=== PATIENT | female | born 1935 | race African-American/Black ===

== ENCOUNTER → 2016-10-02 | Outpatient (CLI) | payer MEDICARE, MEDICAID | LOC: OD 16:44 | PROVIDERS: ATTEND Nurse Practitioner Family | DX: Z13.83 Encounter for screening for respiratory disorder NEC (principal) | CPT/HCPCS: 71020 ==

== ENCOUNTER 2017-01-24 12:23 | Emergency (ER) | payer MEDICARE, MEDICAID ==
--- NOTE | 2017-01-24 12:36 | ER Document Report ---
ED General - General Stated Complaint: DIFFICULTY BREATHING Time Seen by Provider: 01/24/17 12:26 Mode of Arrival: Medic Information source: Patient, Parent Notes: 81-year-old female history of dialysis presents in respiratory distress by EMS. Patient noted she was having difficulty breathing over the past few days. Patient last had dialysis on Wednesday denies any fevers or chills admits to intermittent cough with clear sputum EMS noted patient to be satting 50% on room air, she was started on nonrebreather and was 100%, patient noted to be quite hypertensive given nitroglycerin TRAVEL OUTSIDE OF THE [place] IN LAST 30 DAYS: No - HPI Onset: Other Onset/Duration: Persistent Quality of pain: No pain Severity: Severe Pain Level: Denies Associated symptoms: Productive cough, Shortness of breath Exacerbated by: Supine Relieved by: Denies Similar symptoms previously: Yes Recently seen / treated by doctor: Yes - Related Data Allergies/Adverse Reactions: No Known Allergies Allergy (Unverified 06/30/13 16:51) Past Medical History - Social History Smoking Status: Never Smoker Cigarette use (# per day): No Chew tobacco use (# tins/day): No Smoking Education Provided: No Family History: Reviewed & Not Pertinent - Past Medical History Cardiac Medical History: Reports: Hx Hypertension Pulmonary Medical History: Denies: Hx Tuberculosis Renal/ Medical History: Reports: Hx End Stage Renal Disease - On hemodialysis MWF Psychiatric Medical History: Denies: Hx Depression Past Surgical History: Reports: Hx Orthopedic Surgery - Hip replacement - Immunizations Immunizations up to date: Yes Hx Diphtheria, Pertussis, Tetanus Vaccination: Yes Hx Pneumococcal Vaccination: 07/07/13 Review of Systems - Review of Systems Notes: REVIEW OF SYSTEMS: CONSTITUTIONAL : Denies fever, chills, or sweats. Denies recent illness. EENT: Denies eye, ear, throat, or mouth pain or symptoms. Denies nasal or sinus congestion or discharge. Denies throat, tongue, or mouth swelling or difficulty swallowing. CARDIOVASCULAR: Denies chest pain. Denies palpitations or racing or irregular heart beat. Denies ankle edema. RESPIRATORY: Admits to shortness of GASTROINTESTINAL: Denies abdominal pain or distention. Denies nausea, vomiting , or diarrhea. Denies blood in vomitus, stools, or per rectum. Denies black, tarry stools. Denies constipation. GENITOURINARY: Denies difficulty urinating, painful urination, burning, frequency, blood in urine, or discharge. FEMALE GENITOURINARY: Denies vaginal bleeding, heavy or abnormal periods, irregular periods. Denies vaginal discharge or odor. MUSCULOSKELETAL: Denies back or neck pain or stiffness. Denies joint pain or swelling. SKIN: Denies rash, lesions or sores. HEMATOLOGIC : Denies easy bruising or bleeding. LYMPHATIC: Denies swollen, enlarged glands. NEUROLOGICAL: Denies confusion or altered mental status. Denies passing out or loss of consciousness. Denies dizziness or lightheadedness. Denies headache. Denies weakness or paralysis or loss of use of either side. Denies problems with gait or speech. Denies sensory loss, numbness, or tingling. Denies seizures. PSYCHIATRIC: Denies anxiety or stress. Denies depression, suicidal ideation, or homicidal ideation. ALL OTHER SYSTEMS REVIEWED AND NEGATIVE. PHYSICAL EXAMINATION: GENERAL: Overall well-appearing but immediately placed on BiPAP HEAD: Atraumatic, normocephalic. EYES: Pupils equal round and reactive to light, extraocular movements intact, conjunctiva are normal. ENT: Nares patent, oropharynx clear without exudates. Moist mucous membranes. NECK: Normal range of motion, supple without lymphadenopathy LUNGS: Coarse rhonchi at the bases HEART: Regular rate and rhythm without murmurs ABDOMEN: Soft, nontender, nondistended abdomen. No guarding, no rebound. No masses appreciated. Female : deferred Musculoskeletal: Normal range of motion, no pitting or edema. No cyanosis. NEUROLOGICAL: Cranial nerves grossly intact. Normal speech, normal gait. Normal sensory, motor exams PSYCH: Normal mood, normal affect. SKIN: Warm, Dry, normal turgor, no rashes or lesions noted. Dictation was performed using [employer] voice recognition software Physical Exam - Vital signs Vitals: Pulse Ox 94 01/24/17 12:25 Course - Re-evaluation Re-evalutation: 01/24/17 13:09 Patient does not appear edematous, she was given 1 DuoNeb by EMS and was kept on nonrebreather and was satting 100%. Patient's blood pressure was noted to be 250s over 120s by EMS 01/24/17 13:45 Patient is noted to have congestive heart failure, I spoke with hospitalist who defers on admission, they requested transfer patient [facility] paged 01/24/17 14:11 Spoke with [facility] , Dr Gaffney , he accepts patient for transfer, she is stable at this time for transfer 01/24/17 14:18 - Vital Signs Vital signs: Temp Pulse Resp BP Pulse Ox 97.7 F 94 18 158/82 H 92 01/24/17 12:35 01/24/17 12:35 01/24/17 12:36 01/24/17 12:36 01/24/17 12:36 - Laboratory Result Diagrams: 01/24/17 12:25 01/24/17 12:25 Laboratory results interpreted by me: 01/24/17 01/24/17 01/24/17 12:25 12:25 12:25 WBC 11.8 H RBC 3.61 L Hgb 10.6 L Hct 33.0 L RDW 16.2 H Seg Neuts % (Manual) 91 H Band Neutrophils % 1 L Lymphocytes % (Manual) 4 L Abs Neuts (Manual) 10.9 H VBG pH VBG pCO2 BUN 36 H Creatinine 5.43 H Est GFR ( Amer) 9 L Est GFR (Non-Af Amer) 8 L Glucose 267 H Calcium 10.5 H Direct Bilirubin 0.6 H NT-Pro-B Natriuret Pep 45241 H 01/24/17 12:25 WBC RBC Hgb Hct RDW Seg Neuts % (Manual) Band Neutrophils % Lymphocytes % (Manual) Abs Neuts (Manual) VBG pH 7.27 L VBG pCO2 63.2 H BUN Creatinine Est GFR ( Amer) Est GFR (Non-Af Amer) Glucose Calcium Direct Bilirubin NT-Pro-B Natriuret Pep - Diagnostic Test Radiology reviewed: Image reviewed, Reports reviewed - diffuse edema - EKG Interpretation by Me EKG shows normal: Sinus rhythm, Force, Intervals, QRS Complexes Voltage: Consistant with LVH Critical Care Note - Critical Care Note Total time excluding time spent on procedures (mins): 33 Comments: 33 minutes of critical care time spent in direct contact evaluating and reevaluating the patient, treating symptoms, reviewing labs and studies and speaking with family and consultants excluding any procedures Discharge - Discharge Clinical Impression: Hypertensive emergency, Hypoxemia Congestive heart failure Qualifiers: Congestive heart failure type: systolic Congestive heart failure chronicity: unspecified congestive heart failure chronicity Qualified Code(s): I50.20 - Unspecified systolic (congestive) heart failure Condition: Fair Disposition: [facility] Referrals: AUDELIA CORONEL MD [Primary Care Provider] - Follow up as needed
[2017-01-24 12:44] LABS: HEMOGLOBIN 10.6 g/dL (12.0-15.5); HGB HCT DIFFERENCE -1.2; MEAN CORPUSCULAR HEMOGLOBIN 29.2 pg (27.0-33.4); MEAN CORPUSCULAR VOLUME 92 fl (80-97); RED BLOOD COUNT 3.61 10^6/uL (3.72-5.28); RED CELL DISTRIBUTION WIDTH 16.2 % (11.5-14.0); VENOUS BLOOD BASE EXCESS 0.3 mmol/L; VENOUS BLOOD HCO3 28.4 mmol/L (20-32); VENOUS BLOOD PCO2 63.2 mmHg (35-63); VENOUS BLOOD PH 7.27 (7.30-7.42); WHITE BLOOD COUNT 11.8 10^3/uL (4.0-10.5)
[2017-01-24 13:00] LABS: BAND NEUTROPHILS % (MANUAL) 1 % (3-5); BASOPHILS % (MANUAL) 0 % (0-2); EOSINOPHILS % (MANUAL) 0 % (0-6); LYMPHOCYTES % (MANUAL) 4 % (13-45); TOTAL CELLS COUNTED 100
[2017-01-24 13:01] LABS: ANISOCYTOSIS 1+; POIKILOCYTOSIS SLIGHT; POLYCHROMASIA SLIGHT
[2017-01-24 13:02] LABS: ALANINE AMINOTRANSFERASE 27 U/L (9-52); ALBUMIN 4.1 g/dL (3.5-5.0); ALKALINE PHOSPHATASE 98 U/L (38-126); ANION GAP 13 (5-19); ASPARTATE AMINO TRANSFERASE 34 U/L (14-36); BILIRUBIN,DIRECT 0.6 mg/dL (0.0-0.4); BILIRUBIN,TOTAL 0.8 mg/dL (0.2-1.3); BLOOD UREA NITROGEN 36 mg/dL (7-20); CALCIUM 10.5 mg/dL (8.4-10.2); CARBON DIOXIDE 27 mmol/L (22-30); CHLORIDE 99 mmol/L (98-107); CREATINE KINASE 35 U/L (30-135); CREATININE RESULT 5.43 mg/dL (0.52-1.25); GLUCOSE 267 mg/dL (75-110); HELMET CELLS SLIGHT; OVALOCYTES SLIGHT; POTASSIUM 4.7 mmol/L (3.6-5.0); SODIUM 139.4 mmol/L (137-145); TEAR DROP CELLS SLIGHT; TOTAL PROTEIN 7.6 g/dL (6.3-8.2)
[2017-01-24 13:14] LABS: CREATINE KINASE MB 1.52 ng/mL (<4.55)
[2017-01-24 13:16] LABS: TROPONIN I 0.111 ng/mL
--- NOTE | 2017-01-24 13:20 | RADIOLOGY REPORT (SQ) ---
EXAM DESCRIPTION: CHEST SINGLE VIEW COMPLETED DATE/TIME: 01/24/2017 1:02 pm REASON FOR STUDY: chf,, resp distress COMPARISON: 10/02/2016 NUMBER OF VIEWS: One view. TECHNIQUE: Single frontal radiographic view of the chest acquired. LIMITATIONS: None. FINDINGS: LUNGS AND PLEURA: Segmental airspace disease in the lower lobes. Diffuse interstitial pat tern. MEDIASTINUM AND HILAR STRUCTURES: No masses. Contour normal. HEART AND VASCULAR STRUCTURES: Cardiomegaly. Vascular congestion. BONES: No acute findings. HARDWARE: None in the chest. OTHER: Vascular stent overlying left axilla. IMPRESSION: Congestive heart failure. TECHNICAL DOCUMENTATION: JOB ID: [id number] [employer]- All Rights Reserved
[2017-01-24 17:22] VITALS: BP 190/87
--- NOTE | 2017-01-25 03:38 | EKG REPORT ---
SEVERITY:- ABNORMAL ECG - SINUS RHYTHM LVH WITH SECONDARY REPOLARIZATION ABNORMALITY BORDERLINE PROLONGED QT INTERVAL : Confirmed by: Liberty Urbano MD 25-Jan-2017 03:36:44
== END 2017-01-24 17:31 | disposition short-term general hospital (02) ==
LOC: ER 12:23
DX: I16.1 Hypertensive emergency (principal); I13.2 Hypertensive heart and chronic kidney disease with heart failure and with stage 5 chronic kidney disease, or end stage renal disease; I50.20 Unspecified systolic (congestive) heart failure; N18.6 End stage renal disease; Z99.2 Dependence on renal dialysis; R09.02 Hypoxemia; R05 Cough; R06.02 Shortness of breath
CPT/HCPCS: 36415; 71010; 80053; 82550; 82553; 82803; 83880; 84484; 85025; 87040; 93005; 93010; 94660; 99291

== ENCOUNTER 2017-03-19 11:15 | Observation (INO) | payer MEDICARE, MEDICAID ==
[2017-03-19 13:27] LABS: ALANINE AMINOTRANSFERASE 47 U/L (9-52); ALBUMIN 4.2 g/dL (3.5-5.0); ALKALINE PHOSPHATASE 124 U/L (38-126); ANION GAP 16 (5-19); ASPARTATE AMINO TRANSFERASE 38 U/L (14-36); BILIRUBIN,DIRECT 0.5 mg/dL (0.0-0.4); BILIRUBIN,TOTAL 0.5 mg/dL (0.2-1.3); BLOOD UREA NITROGEN 39 mg/dL (7-20); CALCIUM 10.3 mg/dL (8.4-10.2); CARBON DIOXIDE 27 mmol/L (22-30); CHLORIDE 93 mmol/L (98-107); CREATINE KINASE 27 U/L (30-135); CREATININE RESULT 5.06 mg/dL (0.52-1.25); GLUCOSE 163 mg/dL (75-110); POTASSIUM 4.6 mmol/L (3.6-5.0); SODIUM 135.6 mmol/L (137-145); TOTAL PROTEIN 7.2 g/dL (6.3-8.2)
[2017-03-19 13:40] LABS: CREATINE KINASE MB 0.73 ng/mL (<4.55); TROPONIN I 0.023 ng/mL
--- NOTE | 2017-03-19 13:43 | RADIOLOGY REPORT (SQ) ---
EXAM DESCRIPTION: CHEST SINGLE VIEW COMPLETED DATE/TIME: 03/19/2017 12:59 pm REASON FOR STUDY: dyspnea COMPARISON: 01/24/2017, 10/02/2016 EXAM PARAMETERS: NUMBER OF VIEWS: One view. TECHNIQUE: Single frontal radiographic view of the chest acquired. RADIATION DOSE: NA LIMITATIONS: None. FINDINGS: LUNGS AND PLEURA: Bilateral perihilar pulmonary edema with small bilateral pleural effusio ns. No pneumothorax MEDIASTINUM AND HILAR STRUCTURES: No masses. Contour normal. HEART AND VASCULAR STRUCTURES: Stable moderate cardiomegaly BONES: No acute findings. HARDWARE: None in the chest. OTHER: No other significant finding. IMPRESSION: Fluid overload or congestive failure Stable moderate cardiomegaly TECHNICAL DOCUMENTATION: JOB ID: [id number]
--- NOTE | 2017-03-19 13:46 | ER Document Report ---
ED General - General Chief Complaint: Shortness Of Breath Stated Complaint: DIFFICULTY BREATHING Time Seen by Provider: 03/19/17 11:18 Mode of Arrival: Medic Information source: Patient, Relative Notes: 81-year-old female who receives dialysis Wednesdays presents with complaints of shortness of breath. Patient was found hypoxic in respiratory distress, was given sublingual nitros as well as nitro paste by EMS. Patient last received dialysis on Wednesday is supposed to have dialysis today Dr. Higgins is already aware of this patient TRAVEL OUTSIDE OF THE [place] IN LAST 30 DAYS: No - HPI Onset: Just prior to arrival Onset/Duration: Sudden Quality of pain: No pain Severity: Moderate Pain Level: Denies Associated symptoms: Shortness of breath Exacerbated by: Denies Relieved by: Denies Similar symptoms previously: Yes Recently seen / treated by doctor: Yes - Related Data Allergies/Adverse Reactions: No Known Allergies Allergy (Unverified 06/30/13 16:51) Home Medications: Current Home Medications Acetaminophen [Tylenol Extra Strength 500 mg Tablet] 1 tab PO QIDP PRN 03/19/17 [History] Amlodipine Besylate [Norvasc 5 mg Tablet] 5 mg PO Q12 03/19/17 [History] Atorvastatin Calcium [Lipitor 20 mg Tablet] 20 mg PO QHS 03/19/17 [History] Calcium Acetate [Phoslo 667 mg Capsule] 1,334 mg PO MEALS 03/19/17 [History] Carvedilol [Coreg 3.125 mg Tablet] 3.125 mg PO Q12 03/19/17 [History] Cinacalcet HCl [Sensipar 30 Mg Tablet] 30 mg PO DAILY 03/19/17 [History] Ergocalciferol (Vitamin D2) [Drisdol 50,000 Unit (1.25MG) Capsule] 1 cap PO TH@ 1000 03/19/17 [History] Folic Acid/Vit B Complex and C [Nephro-Prosper Tablet] 0.8 mg PO DAILY 03/19/17 [ History] Furosemide [Lasix 80 mg Tablet] 80 mg PO Q12 03/19/17 [History] Insulin Lispro [Humalog Insulin 100 Unit/1 ml 3 ml Vial] 0 unit SUBCUT .SLD SCALE 03/19/17 [History] Lactulose [Cephulac 20 gm/30 ml Syrup UD Cup] 20 gm PO DAILYP PRN 03/19/17 [ History] Lidocaine/Prilocaine [Emla Cream] 1 applic TP MOWEFR@1000 03/19/17 [History] Linagliptin [Tradjenta] 5 mg PO DAILY 03/19/17 [History] Losartan Potassium [Cozaar 100 mg Tablet] 100 mg PO QHS 03/19/17 [History] Methyl Salicylate/Menthol [Muscle Rub Cream] 1 applic TP QIDP PRN 03/19/17 [ History] Polyethylene Glycol 3350 [Miralax Powder 17 gm/Packet] 1 packet PO DAILY [History] Polyethylene Glycol 3350 [Miralax Powder 17 gm/Packet] 1 packet PO DAILY [History] Sennosides/Docusate 8.6-50 mg [Senna Plus Tablet] 2 tab PO DAILYP PRN 03/19/17 [ History] Simethicone [Gas-X] 125 mg PO QIDP PRN 03/19/17 [History] Sodium Polystyrene Sulfonate [Kayexalate 15 Gm/60 Ml Susp 60 Ml] 15 gm PO ASDIR PRN 03/19/17 [History] Thiamine HCl [Thiamine 100 mg Tablet] 100 mg PO DAILY 03/19/17 [History] Past Medical History - Social History Smoking Status: Never Smoker Cigarette use (# per day): No Chew tobacco use (# tins/day): No Smoking Education Provided: No Frequency of alcohol use: None Drug Abuse: None Family History: Reviewed & Not Pertinent Patient has suicidal ideation: No Patient has homicidal ideation: No - Past Medical History Cardiac Medical History: Reports: Hx Hypercholesterolemia, Hx Hypertension Pulmonary Medical History: Denies: Hx Tuberculosis Endocrine Medical History: Reports: Hx Diabetes Mellitus Type 2 Renal/ Medical History: Reports: Hx End Stage Renal Disease - On hemodialysis MWF. Denies: Hx Peritoneal Dialysis Psychiatric Medical History: Denies: Hx Depression Past Surgical History: Reports: Hx Orthopedic Surgery - Hip replacement - Immunizations Immunizations up to date: Yes Hx Diphtheria, Pertussis, Tetanus Vaccination: Yes Hx Pneumococcal Vaccination: 07/07/13 Review of Systems - Review of Systems Notes: REVIEW OF SYSTEMS: CONSTITUTIONAL : Denies fever, chills, or sweats. Denies recent illness. EENT: Denies eye, ear, throat, or mouth pain or symptoms. Denies nasal or sinus congestion or discharge. Denies throat, tongue, or mouth swelling or difficulty swallowing. CARDIOVASCULAR: Denies chest pain. Denies palpitations or racing or irregular heart beat. Denies ankle edema. RESPIRATORY: Admits to shortness of breath difficulty breathing GASTROINTESTINAL: Denies abdominal pain or distention. Denies nausea, vomiting , or diarrhea. Denies blood in vomitus, stools, or per rectum. Denies black, tarry stools. Denies constipation. GENITOURINARY: Denies difficulty urinating, painful urination, burning, frequency, blood in urine, or discharge. FEMALE GENITOURINARY: Denies vaginal bleeding, heavy or abnormal periods, irregular periods. Denies vaginal discharge or odor. MUSCULOSKELETAL: Denies back or neck pain or stiffness. Denies joint pain or swelling. SKIN: Denies rash, lesions or sores. HEMATOLOGIC : Denies easy bruising or bleeding. LYMPHATIC: Denies swollen, enlarged glands. NEUROLOGICAL: Denies confusion or altered mental status. Denies passing out or loss of consciousness. Denies dizziness or lightheadedness. Denies headache. Denies weakness or paralysis or loss of use of either side. Denies problems with gait or speech. Denies sensory loss, numbness, or tingling. Denies seizures. PSYCHIATRIC: Denies anxiety or stress. Denies depression, suicidal ideation, or homicidal ideation. ALL OTHER SYSTEMS REVIEWED AND NEGATIVE. PHYSICAL EXAMINATION: GENERAL: Well-appearing, well-nourished and in no acute distress. HEAD: Atraumatic, normocephalic. EYES: Pupils equal round and reactive to light, extraocular movements intact, conjunctiva are normal. ENT: Nares patent, oropharynx clear without exudates. Moist mucous membranes. NECK: Normal range of motion, supple without lymphadenopathy LUNGS: Coarse breath sounds HEART: Regular rate and rhythm without murmurs ABDOMEN: Soft, nontender, nondistended abdomen. No guarding, no rebound. No masses appreciated. Female : deferred Musculoskeletal: Normal range of motion, no pitting or edema. No cyanosis. NEUROLOGICAL: Cranial nerves grossly intact. Normal speech, normal gait. Normal sensory, motor exams PSYCH: Normal mood, normal affect. SKIN: Warm, Dry, normal turgor, no rashes or lesions noted. Dictation was performed using [employer] recognition software Physical Exam - Vital signs Vitals: Resp Pulse Ox 14 98 03/19/17 11:57 03/19/17 11:57 Course - Re-evaluation Re-evalutation: 03/19/17 13:46 dr balbir perales 03/19/17 18:17 Patient noted to be in acute CHF exacerbation, dialysis was requested. Patient otherwise looks well no distress patient will be admitted to the hospital service for hypoxemia - Vital Signs Vital signs: Temp Pulse Resp BP Pulse Ox 97.7 F 78 20 154/95 H 99 03/19/17 12:03 03/19/17 12:03 03/19/17 12:16 03/19/17 12:03 03/19/17 12:03 - Laboratory Result Diagrams: 03/19/17 13:56 03/19/17 12:35 Laboratory results interpreted by me: 03/19/17 03/19/17 03/19/17 12:35 12:35 13:56 RDW 16.4 H Seg Neutrophils % 87.0 H Lymphocytes % 6.1 L Sodium 135.6 L Chloride 93 L BUN 39 H Creatinine 5.06 H Est GFR ( Amer) 10 L Est GFR (Non-Af Amer) 8 L Glucose 163 H Calcium 10.3 H Direct Bilirubin 0.5 H AST 38 H Creatine Kinase 27 L NT-Pro-B Natriuret Pep 59651 H - Diagnostic Test Radiology reviewed: Image reviewed, Reports reviewed Critical Care Note - Critical Care Note Total time excluding time spent on procedures (mins): 37 Comments: 37 minutes of critical care time spent in direct contact evaluating and reevaluating the patient, treating symptoms, reviewing labs and studies and speaking with family and consultants excluding any procedures Discharge - Discharge Clinical Impression: Hypoxemia CHF (congestive heart failure) Qualifiers: Congestive heart failure type: combined Congestive heart failure chronicity: acute on chronic Qualified Code(s): I50.43 - Acute on chronic combined systolic (congestive) and diastolic (congestive) heart failure Condition: Fair Disposition: ADMITTED OBSERVATION Admitting Provider: Hospitalist Unit Admitted: [facility]
[2017-03-19 14:23] LABS: ABSOLUTE BASOPHILS # (AUTO) 0.1 10^3/uL (0.0-0.2); ABSOLUTE EOSINOPHILS # (AUTO) 0.1 10^3/uL (0.0-0.6); ABSOLUTE LYMPHOCYTES (AUTO) 0.5 10^3/uL (0.5-4.7); ABSOLUTE MONOCYTES (AUTO) 0.4 10^3/uL (0.1-1.4); BASOPHILS % (AUTO) 0.7 % (0-2); HEMATOCRIT 36.3 % (36.0-47.0); HEMOGLOBIN 12.1 g/dL (12.0-15.5); LYMPHOCYTES % (AUTO) 6.1 % (13-45); MEAN CORPUSCULAR HEMOGLOBIN 28.2 pg (27.0-33.4); MEAN CORPUSCULAR HGB CONC 33.2 g/dL (32.0-36.0); MEAN CORPUSCULAR VOLUME 85 fl (80-97); MONOCYTES % (AUTO) 5.2 % (3-13); RED BLOOD COUNT 4.28 10^6/uL (3.72-5.28); RED CELL DISTRIBUTION WIDTH 16.4 % (11.5-14.0)
[2017-03-19] MEDS ORDERED: LEVALBUTEROL HCL NEB 1.25 MG/3 ML AMPUL NEB PRN (15:49)
[2017-03-19] MEDS ORDERED: ONDANSETRON HCL INJ/PF 4 MG/2 ML SDV IV PRN (15:56)
[2017-03-19] MEDS ORDERED: ACETAMINOPHEN 325 MG TABLET PO PRN (15:56)
[2017-03-19] MEDS ORDERED: LACTULOSE SYRUP 20 GM/30 ML UDCUP PO PRN (16:01)
--- NOTE | 2017-03-19 16:27 | PDOC H&P ---
History of Present Illness Admission Date/PCP: 03/19/17 14:14 AUDELIA CORONEL MD Patient complains of: Shortness of breath History of Present Illness: KEVIN BUSTAMANTE is a 81 year old female, with end-stage renal disease on hemodialysis, hypertension, hyperlipidemia, presents to the hospital because of shortness of breath on exertion. No noted increasing edema. Patient has been nonambulatory since he had a hip replacement several months ago. He was hospitalized recently at [facility] for fluid overload requiring dialysis. She was discharged to subacute facility for rehabilitation and was recently discharged home from the facility 2-3 days ago. Patient was having dialysis but according to the family they were not recording the appropriate way to the patient. Patient started having shortness of breath earlier today and called her physician and digital marketing manager and was advised to come to the emergency room. Chest x-ray revealed congestive heart failure pattern and therefore the patient was scheduled for dialysis and referred to the hospitalist for admission. Patient denies any fever, chest pain, PND orthopnea , paroxysmal coughing, purulent expectoration, sinus congestion, or sore throat. Past Medical History Cardiac Medical History: Reports: Congestive Heart Failure, Hyperlipidema, Hypertension Pulmonary Medical History: Denies: Tuberculosis Endocrine Medical History: Reports: Diabetes Mellitus Type 2 Renal/ Medical History: Reports: End Stage Renal Disease - On hemodialysis MW Psychiatric Medical History: Denies: Depression Past Surgical History Past Surgical History: Reports: Orthopedic Surgery - Hip replacement Social History Information Source: Patient Smoking Status: Never Smoker Frequency of Alcohol Use: None Hx Recreational Drug Use: No Drugs: None Hx Prescription Drug Abuse: No Family History Family History: DM, Hypertension Parental Family History Reviewed: Yes Children Family History Reviewed: Yes Sibling(s) Family History Reviewed.: Yes Medication/Allergy Home Medications: Acetaminophen [Tylenol Extra Strength 500 mg Tablet] 1 tab PO QIDP PRN 03/19/17 Amlodipine Besylate [Norvasc 5 mg Tablet] 5 mg PO Q12 03/19/17 Atorvastatin Calcium [Lipitor 20 mg Tablet] 20 mg PO QHS 03/19/17 Calcium Acetate [Phoslo 667 mg Capsule] 1,334 mg PO MEALS 03/19/17 Carvedilol [Coreg 3.125 mg Tablet] 3.125 mg PO Q12 03/19/17 Cinacalcet HCl [Sensipar 30 Mg Tablet] 30 mg PO DAILY 03/19/17 Ergocalciferol (Vitamin D2) [Drisdol 50,000 Unit (1.25MG) Capsule] 1 cap PO TH@ 1000 03/19/17 Folic Acid/Vit B Complex and C [Nephro-Prosper Tablet] 0.8 mg PO DAILY 03/19/17 Furosemide [Lasix 80 mg Tablet] 80 mg PO Q12 03/19/17 Insulin Lispro [Humalog Insulin 100 Unit/1 ml 3 ml Vial] 0 unit SUBCUT .SLD SCALE 03/19/17 Lactulose [Cephulac 20 gm/30 ml Syrup UD Cup] 20 gm PO DAILYP PRN 03/19/17 Lidocaine/Prilocaine [Emla Cream] 1 applic TP MOWEFR@1000 03/19/17 Linagliptin [Tradjenta] 5 mg PO DAILY 03/19/17 Losartan Potassium [Cozaar 100 mg Tablet] 100 mg PO QHS 03/19/17 Methyl Salicylate/Menthol [Muscle Rub Cream] 1 applic TP QIDP PRN 03/19/17 Polyethylene Glycol 3350 [Miralax Powder 17 gm/Packet] 1 packet PO DAILY Polyethylene Glycol 3350 [Miralax Powder 17 gm/Packet] 1 packet PO DAILY Sennosides/Docusate 8.6-50 mg [Senna Plus Tablet] 2 tab PO DAILYP PRN 03/19/17 Simethicone [Gas-X] 125 mg PO QIDP PRN 03/19/17 Sodium Polystyrene Sulfonate [Kayexalate 15 Gm/60 Ml Susp 60 Ml] 15 gm PO ASDIR PRN 03/19/17 Thiamine HCl [Thiamine 100 mg Tablet] 100 mg PO DAILY 03/19/17 Allergies/Adverse Reactions: No Known Allergies Allergy (Unverified 06/30/13 16:51) Review of Systems Constitutional: PRESENT: weakness - Generalized. ABSENT: chills, fever(s), headache(s), night sweats, weight gain, weight loss Eyes: ABSENT: visual disturbances Ears: ABSENT: hearing changes Nose, Mouth, and Throat: ABSENT: mouth pain, sore throat Cardiovascular: PRESENT: dyspnea on exertion - Chronic, edema - Chronic in both lower extremities. ABSENT: chest pain, orthropnea, palpitations Respiratory: PRESENT: cough - Minimal. ABSENT: hemoptysis, sputum Gastrointestinal: ABSENT: abdominal pain, constipation, diarrhea, hematemesis, hematochezia, melena, nausea, vomiting Genitourinary: ABSENT: dysuria, hematuria Musculoskeletal: PRESENT: other - Occasional neck pain and hip pain. ABSENT: joint swelling Integumentary: ABSENT: pruritus, rash, wounds Neurological: ABSENT: abnormal gait, abnormal speech, confusion, dizziness, focal weakness, syncope Psychiatric: ABSENT: anxiety, depression, homidical ideation, suicidal ideation Endocrine: ABSENT: cold intolerance, heat intolerance, polydipsia, polyuria Hematologic/Lymphatic: ABSENT: easy bleeding, easy bruising Physical Exam Vital Signs: Temp Pulse Resp BP Pulse Ox 97.7 F 78 20 154/95 H 99 03/19/17 12:03 03/19/17 12:03 03/19/17 12:16 03/19/17 12:03 03/19/17 12:03 General appearance: PRESENT: no acute distress, cooperative, morbidly obese, other - Nasal cannula oxygen Head exam: PRESENT: atraumatic, normocephalic Eye exam: PRESENT: conjunctiva pale, EOMI, PERRLA. ABSENT: scleral icterus Ear exam: PRESENT: normal external ear exam Mouth exam: PRESENT: moist, neck supple, tongue midline Neck exam: ABSENT: carotid bruit, JVD, lymphadenopathy, thyromegaly Respiratory exam: PRESENT: clear to auscultation rose marie - Anteriorly bilateral, rales - Posteriorly on the lower lung bentley. ABSENT: rhonchi, wheezes Cardiovascular exam: PRESENT: RRR, +S1, +S2, systolic murmur - Left sternal border. ABSENT: diastolic murmur, rubs Pulses: PRESENT: normal dorsalis pedis pul Vascular exam: PRESENT: normal capillary refill GI/Abdominal exam: PRESENT: normal bowel sounds, soft. ABSENT: distended, guarding, mass, organolmegaly, rebound, tenderness Rectal exam: PRESENT: deferred Extremities exam: PRESENT: full ROM, other - Trace pretibial edema. ABSENT: calf tenderness, clubbing Neurological exam: PRESENT: alert, awake, oriented to situation Psychiatric exam: PRESENT: appropriate affect, normal mood. ABSENT: agitated, anxious, depressed, homicidal ideation, suicidal ideation Focused psych exam: ABSENT: restlessness Skin exam: PRESENT: dry, intact, warm. ABSENT: cyanosis, rash Results Impressions: Chest X-Ray 03/19/17 11:18 IMPRESSION: Fluid overload or congestive failure Stable moderate cardiomegaly Assessment & Plan - Diagnosis (1) Fluid overload Qualifiers: Hypervolemia type: unspecified Qualified Code(s): E87.70 - Fluid overload, unspecified Is this a current diagnosis for this admission?: Yes (2) End stage renal disease on dialysis Is this a current diagnosis for this admission?: Yes (3) Essential hypertension Is this a current diagnosis for this admission?: Yes (4) Hyperlipidemia Qualifiers: Hyperlipidemia type: unspecified Qualified Code(s): E78.5 - Hyperlipidemia , unspecified Is this a current diagnosis for this admission?: Yes (5) Diabetes mellitus type 2 in obese Is this a current diagnosis for this admission?: Yes - Time Time Spent: 30 to 50 Minutes - Plan Summary Plan Summary: The patient will be admitted to observation. We will consult nephrology for dialysis. We will monitor blood pressure with her on sliding scale and continue her home medications. Supplemental oxygen will be given. DVT prophylaxis with heparin will be placed. Once dialysis accomplished possibly can be discharged home the next morning. Further testing depends on specialty service recommendation as consulted above.
--- NOTE | 2017-03-19 19:36 | EKG REPORT ---
SEVERITY:- ABNORMAL ECG - SINUS RHYTHM LVH WITH SECONDARY REPOLARIZATION ABNORMALITY ANTERIOR Q WAVES, POSSIBLY DUE TO LVH BORDERLINE PROLONGED QT INTERVAL : Confirmed by: Roni Valladares MD 19-Mar-2017 19:35:13
[2017-03-19] MEDS: DOCUSATE SODIUM 100 MG CAPSULE PO SCH (21:53)
[2017-03-19] MEDS: CALCIUM ACETATE 667 MG CAPSULE PO SCH (21:53)
[2017-03-19] MEDS ORDERED: LOSARTAN POTASSIUM 50 MG TABLET PO SCH (22:00)
[2017-03-19] MEDS: CARVEDILOL 3.125 MG TABLET PO SCH (22:54)
[2017-03-19] MEDS: FUROSEMIDE 80 MG TABLET PO SCH (22:54)
[2017-03-19] MEDS: AMLODIPINE BESYLATE 5 MG TABLET PO SCH (22:54)
[2017-03-19] MEDS: HEPARIN SOD (PORCINE) 5,000 UNIT/ML 1 ML SYRINGE SUBCUT SCH (22:55)
[2017-03-20] MEDS ORDERED: LANSOPRAZOLE 30 MG TAB.RAP.DR PO SCH (06:00)
[2017-03-20] MEDS: HEPARIN SOD (PORCINE) 5,000 UNIT/ML 1 ML SYRINGE SUBCUT SCH ×2 (06:08→15:01)
[2017-03-20] MEDS: CALCIUM ACETATE 667 MG CAPSULE PO SCH ×3 (09:01→16:56)
[2017-03-20] MEDS: CARVEDILOL 3.125 MG TABLET PO SCH (09:02)
[2017-03-20] MEDS: AMLODIPINE BESYLATE 5 MG TABLET PO SCH (09:02)
[2017-03-20] MEDS: DOCUSATE SODIUM 100 MG CAPSULE PO SCH ×2 (09:03→16:57)
[2017-03-20] MEDS: FUROSEMIDE 80 MG TABLET PO SCH (09:03)
[2017-03-20] MEDS ORDERED: POLYETHYLENE GLYCOL 3350 POWDER 17 GM/1 PACKET PO SCH (10:00)
[2017-03-20] MEDS ORDERED: SITAGLIPTIN PHOSPHATE 25 MG TABLET PO SCH (10:00)
[2017-03-20] MEDS ORDERED: (PENDING PHARMACY ID) (Linagliptin [Tradjenta] 5 MG) PO SCH (10:00)
[2017-03-20] MEDS ORDERED: CINACALCET HCL 30 MG TABLET PO SCH (10:00)
[2017-03-20 16:33] VITALS: BP 140/64
--- NOTE | 2017-03-20 16:59 | PDOC DISCHARGE SUMMARY ---
General - Admit/Disc Date/PCP Admission Date/Primary Care Provider: 03/19/17 15:49 AUDELIA CORONEL MD Discharge Date: 03/20/17 - Discharge Diagnosis (1) Fluid overload Is this a current diagnosis for this admission?: Yes (2) End stage renal disease on dialysis Is this a current diagnosis for this admission?: Yes (3) Essential hypertension Is this a current diagnosis for this admission?: Yes (4) Hyperlipidemia Is this a current diagnosis for this admission?: Yes (5) Diabetes mellitus type 2 in obese Is this a current diagnosis for this admission?: Yes - Additional Information Discharge Diet: Cardiac, Diabetic, Other (Comments) Discharge Activity: Activity As Tolerated, Balance Activity w/Rest Home Medications: Acetaminophen [Tylenol Extra Strength 500 mg Tablet] 1 tab PO QIDP PRN 03/19/17 Amlodipine Besylate [Norvasc 5 mg Tablet] 5 mg PO Q12 03/19/17 Atorvastatin Calcium [Lipitor 20 mg Tablet] 20 mg PO QHS 03/19/17 Calcium Acetate [Phoslo 667 mg Capsule] 1,334 mg PO MEALS 03/19/17 Carvedilol [Coreg 3.125 mg Tablet] 3.125 mg PO Q12 03/19/17 Cinacalcet HCl [Sensipar 30 mg Tablet] 30 mg PO DAILY 03/19/17 Ergocalciferol (Vitamin D2) [Drisdol 50,000 unit (1.25MG) Capsule] 1 cap PO TH@ 1000 03/19/17 Folic Acid/Vit B Complex and C [Nephro-Prosper Tablet] 0.8 mg PO DAILY 03/19/17 Furosemide [Lasix 80 mg Tablet] 80 mg PO Q12 03/19/17 Insulin Lispro [Humalog Insulin (Lispro) 100 unit/mL] 0 unit SUBCUT .SLD SCALE 03/19/17 Lactulose [Cephulac Syrup 20 gm/30 ml Udcup] 20 gm PO DAILYP PRN 03/19/17 Lidocaine/Prilocaine [Emla Cream] 1 applic TP MOWEFR@1000 03/19/17 Linagliptin [Tradjenta] 5 mg PO DAILY 03/19/17 Losartan Potassium [Cozaar 100 mg Tablet] 100 mg PO QHS 03/19/17 Methyl Salicylate/Menthol [Muscle Rub Cream] 1 applic TP QIDP PRN 03/19/17 Polyethylene Glycol 3350 [Miralax Powder 17 gm/Packet] 1 packet PO DAILY Polyethylene Glycol 3350 [Miralax Powder 17 gm/Packet] 1 packet PO DAILY Sennosides/Docusate 8.6-50 mg [Senna Plus Tablet] 2 tab PO DAILYP PRN 03/19/17 Simethicone [Gas-X] 125 mg PO QIDP PRN 03/19/17 Sodium Polystyrene Sulfonate [Kayexalate 15 gm/60 ml Susp 60 ml] 15 gm PO ASDIR PRN 03/19/17 Thiamine HCl [Thiamine 100 mg Tablet] 100 mg PO DAILY 03/19/17 History of Present Illness Patient complains of: fluid overload History of Present Illness: KEVIN BUSTAMANTE is a 81 year old female, with end-stage renal disease on hemodialysis, hypertension, hyperlipidemia, presents to the hospital because of shortness of breath on exertion. No noted increasing edema. Patient has been nonambulatory since he had a hip replacement several months ago. He was hospitalized recently at [facility] for fluid overload requiring dialysis. She was discharged to subacute facility for rehabilitation and was recently discharged home from the facility 2-3 days ago. Patient was having dialysis but according to the family they were not recording the appropriate way to the patient. Patient started having shortness of breath earlier today and called her physician and bellows tester and was advised to come to the emergency room. Chest x-ray revealed congestive heart failure pattern and therefore the patient was scheduled for dialysis and referred to the hospitalist for admission. Patient denies any fever, chest pain, PND orthopnea , paroxysmal coughing, purulent expectoration, sinus congestion, or sore throat. Hospital Course Hospital Course: The patient was admitted to telemetry. Nephrology was consulted and hemodialysis was instituted. Patient edema and SOB significantly improved. About 3L of fluid was taken out. Pt improved. The rest of hospital stay was unremarkable. She has an appointment at [facility] on Wednesday for her prior hip surgery and her dialysis was rescheduled for wednesday next week according to family. She was eventually d/c w/ above instructions. Physical Exam Vital Signs: Temp Pulse Resp BP Pulse Ox 98.7 F 82 16 140/64 H 96 03/20/17 16:32 03/20/17 16:32 03/20/17 16:32 03/20/17 16:32 03/20/17 16:32 Intake & Output 03/19/17 03/20/17 03/21/17 06:59 06:59 06:59 Intake Total 805 Output Total 3001 Balance -2196 Weight 80.6 kg General appearance: PRESENT: no acute distress, cooperative Head exam: PRESENT: normocephalic Eye exam: PRESENT: EOMI Mouth exam: PRESENT: moist, neck supple Neck exam: ABSENT: JVD Respiratory exam: PRESENT: clear to auscultation rose marie - anteriorly. ABSENT: rhonchi, wheezes Cardiovascular exam: PRESENT: RRR. ABSENT: gallop GI/Abdominal exam: PRESENT: soft. ABSENT: distended, tenderness Extremities exam: ABSENT: pedal edema Neurological exam: PRESENT: alert, awake, oriented to situation Skin exam: PRESENT: dry, warm. ABSENT: cyanosis Results Impressions: Chest X-Ray 03/19/17 11:18 IMPRESSION: Fluid overload or congestive failure Stable moderate cardiomegaly Qualifiers PATEINT BEING DISCHARGED WITH ANY OF THE FOLLOWING DIAGNOSIS?: No Plan Discharge Plan: follow up w/ marilyn COTO in 1 week. Follow up w/ Dr. Higgins in 2 weeks. Time Spent: Less than 30 Minutes
--- NOTE | 2017-03-20 20:03 | PDOC CONSULTATION ---
Consultation Consult Date: 03/19/17 Consult reason:: hemodialysis History of Present Illness Admission Date/PCP: 03/19/17 14:14 AUDELIA CORONEL MD History of Present Illness: KEVIN BUSTAMANTE is a 81 year old female with past medical history of ESRD on dialysis, hypertension, DM, and CHF. She normally receives dialysis at [facility] dialysis unit. Lately she has been receiving dialysis at a different facility due to being at a rehab facility in [place]. Yesterday she returned home for the first time. She was felling a little short of breath. Then overnight she was becoming more short of breath. When she layed down was when she was the most short of breath. She was not able to make it to dialysis today. Here blood pressure was also in the 200s systolic. She has not taken any of her bp medications today. So she was taken to the ER. In the ER a chest x- ray was done that shows fluid overload in the lungs. She denies chest pain, headaches or focal deficits. Past Medical History Cardiac Medical History: Reports: Hyperlipidemia Pulmonary Medical History: Denies: Tuberculosis Endocrine Medical History: Reports: Diabetes Mellitus Type 2 Renal/ Medical History: Reports: End Stage Renal Disease - On hemodialysis MWF Psychiatric Medical History: Denies: Depression Past Surgical History Past Surgical History: Reports: Orthopedic Surgery - Hip replacement Social History Smoking Status: Never Smoker Frequency of Alcohol Use: None Hx Recreational Drug Use: No Hx Prescription Drug Abuse: No Family History Parental Family History Reviewed: No Children Family History Reviewed: No Sibling(s) Family History Reviewed.: No Medication/Allergy Home Medications: Acetaminophen [Tylenol Extra Strength 500 mg Tablet] 1 tab PO QIDP PRN 03/19/17 Amlodipine Besylate [Norvasc 5 mg Tablet] 5 mg PO Q12 03/19/17 Atorvastatin Calcium [Lipitor 20 mg Tablet] 20 mg PO QHS 03/19/17 Calcium Acetate [Phoslo 667 mg Capsule] 1,334 mg PO MEALS 03/19/17 Carvedilol [Coreg 3.125 mg Tablet] 3.125 mg PO Q12 03/19/17 Cinacalcet HCl [Sensipar 30 mg Tablet] 30 mg PO DAILY 03/19/17 Ergocalciferol (Vitamin D2) [Drisdol 50,000 unit (1.25MG) Capsule] 1 cap PO TH@ 1000 03/19/17 Folic Acid/Vit B Complex and C [Nephro-Prosper Tablet] 0.8 mg PO DAILY 03/19/17 Furosemide [Lasix 80 mg Tablet] 80 mg PO Q12 03/19/17 Insulin Lispro [Humalog Insulin (Lispro) 100 unit/mL] 0 unit SUBCUT .SLD SCALE 03/19/17 Lactulose [Cephulac Syrup 20 gm/30 ml Udcup] 20 gm PO DAILYP PRN 03/19/17 Lidocaine/Prilocaine [Emla Cream] 1 applic TP MOWEFR@1000 03/19/17 Linagliptin [Tradjenta] 5 mg PO DAILY 03/19/17 Losartan Potassium [Cozaar 100 mg Tablet] 100 mg PO QHS 03/19/17 Methyl Salicylate/Menthol [Muscle Rub Cream] 1 applic TP QIDP PRN 03/19/17 Polyethylene Glycol 3350 [Miralax Powder 17 gm/Packet] 1 packet PO DAILY Polyethylene Glycol 3350 [Miralax Powder 17 gm/Packet] 1 packet PO DAILY Sennosides/Docusate 8.6-50 mg [Senna Plus Tablet] 2 tab PO DAILYP PRN 03/19/17 Simethicone [Gas-X] 125 mg PO QIDP PRN 03/19/17 Sodium Polystyrene Sulfonate [Kayexalate 15 gm/60 ml Susp 60 ml] 15 gm PO ASDIR PRN 03/19/17 Thiamine HCl [Thiamine 100 mg Tablet] 100 mg PO DAILY 03/19/17 Allergies/Adverse Reactions: No Known Allergies Allergy (Unverified 06/30/13 16:51) Review of Systems Constitutional: PRESENT: headache(s), weakness. ABSENT: chills, fever(s) Eyes: ABSENT: visual disturbances Ears: ABSENT: hearing changes Cardiovascular: PRESENT: dyspnea on exertion, edema, orthropnea. ABSENT: chest pain Respiratory: PRESENT: cough, dyspnea, sputum - -clear Gastrointestinal: ABSENT: abdominal pain, constipation, diarrhea, nausea, vomiting Musculoskeletal: ABSENT: joint swelling, muscle weakness Integumentary: ABSENT: erythema Neurological: PRESENT: numbness. ABSENT: confusion, weakness Endocrine: PRESENT: polydipsia. ABSENT: polyuria Physical Exam Vital Signs: Temp Pulse Resp BP Pulse Ox 97.7 F 78 20 154/95 H 99 03/19/17 12:03 03/19/17 12:03 03/19/17 12:16 03/19/17 12:03 03/19/17 12:03 General appearance: PRESENT: no acute distress, well-developed, well-nourished Head exam: PRESENT: atraumatic, normocephalic Eye exam: PRESENT: PERRLA. ABSENT: scleral icterus Mouth exam: PRESENT: moist, tongue midline Neck exam: PRESENT: full ROM, JVD. ABSENT: tracheal deviation Respiratory exam: PRESENT: crackles - -bilateral in the lower lobes. ABSENT: accessory muscle use, clear to auscultation rose marie, rhonchi Cardiovascular exam: PRESENT: +S1, +S2, tachycardia GI/Abdominal exam: PRESENT: normal bowel sounds, soft. ABSENT: distended, firm Extremities exam: PRESENT: full ROM, +2 edema. ABSENT: tenderness Musculoskeletal exam: PRESENT: normal inspection. ABSENT: deformity, tenderness Neurological exam: PRESENT: alert, awake, oriented to person, oriented to place , oriented to time, oriented to situation Psychiatric exam: PRESENT: appropriate affect, normal mood Skin exam: PRESENT: normal color. ABSENT: cyanosis, rash Results Impressions: Chest X-Ray 03/19/17 11:18 IMPRESSION: Fluid overload or congestive failure Stable moderate cardiomegaly Assessment & Plan - Diagnosis (1) CHF (congestive heart failure) Qualifiers: Congestive heart failure type: combined Congestive heart failure chronicity : acute on chronic Qualified Code(s): I50.43 - Acute on chronic combined systolic (congestive) and diastolic (congestive) heart failure Plan: Run her on dialysis to remove fluid and also give oxygen through a NC (2) Diabetes mellitus type 2 in obese Is this a current diagnosis for this admission?: Yes Plan: advised on better control to the family and patient (3) End stage renal disease on dialysis Is this a current diagnosis for this admission?: Yes Plan: Will run on dialysis for 3 hours and remove 3L of fluid. Will continue regular dialysis on discharge (4) Essential hypertension Is this a current diagnosis for this admission?: Yes Plan: Restart her on her normal medications and also will remove some fluid to bring BP down. (5) Fluid overload Qualifiers: Hypervolemia type: unspecified Qualified Code(s): E87.70 - Fluid overload, unspecified Is this a current diagnosis for this admission?: Yes Plan: Advised family to restrict fluid to 1L a day and will run dialysis to remove fluid. Also advised on a low sodium diet.
[2017-03-22] MEDS ORDERED: (PENDING PHARMACY ID) (Lidocaine/Prilocaine [Emla Cream] 1 APPLIC) TP SCH (10:00)
== END 2017-03-20 18:00 | disposition home health service (06) ==
LOC: ER 11:15 → UNDOADMOB 14:14 → EH 14:14 → 3N 21:05
PROC: 5A1D00Z (ICD-10-PCS; principal; 2017-03-19)
DX: E87.70 Fluid overload, unspecified (principal); E11.22 Type 2 diabetes mellitus with diabetic chronic kidney disease; N18.6 End stage renal disease; I13.2 Hypertensive heart and chronic kidney disease with heart failure and with stage 5 chronic kidney disease, or end stage renal disease; I50.43 Acute on chronic combined systolic (congestive) and diastolic (congestive) heart failure; E78.5 Hyperlipidemia, unspecified; Z99.2 Dependence on renal dialysis; E66.9 Obesity, unspecified; R09.02 Hypoxemia; R26.89 Other abnormalities of gait and mobility; Z96.649 Presence of unspecified artificial hip joint; Z68.32 Body mass index [BMI] 32.0-32.9, adult; Z79.899 Other long term (current) drug therapy; Z79.4 Long term (current) use of insulin; Z82.49 Family history of ischemic heart disease and other diseases of the circulatory system; Z83.3 Family history of diabetes mellitus
CPT/HCPCS: G0257 ×36; 36415; 71010; 80053; 82550; 82553; 82962; 83880; 84484; 85025; 86317; 86704; 87040; 93005; 93010; 99291; G0378; J1644; J3490

== ENCOUNTER → 2017-03-29 | Outpatient (CLI) | payer MEDICARE, MEDICAID ==
--- NOTE | 2017-03-30 08:51 | RADIOLOGY REPORT (SQ) ---
EXAM DESCRIPTION: HIP RIGHT AP/LATERAL COMPLETED DATE/TIME: 03/29/2017 7:36 pm REASON FOR STUDY: RIGHT HIP PAIN COMPARISON: None. NUMBER OF VIEWS: Two views. TECHNIQUE: AP pelvis and additional frog-leg view of the right hip. LIMITATIONS: Large patient, bones are osteoporotic FINDINGS: MINERALIZATION: Bones are osteoporotic. RIGHT HIP: There is a right total hip replacement with acetabular cup anchored with 3 screws. Long r ight femoral intramedullary component. Along the proximal 3rd of the femoral diaphysis at the bottom edge of the field of view, there is a permeative lytic pattern along the femoral bony cortex. This could indicate bony remodeling related to loosening. Consider three-phase bone scan for followup. LEFT HIP: There is a left total hip replacement with acetabular cup anchored with a single screw. Al kendra the proximal 3rd of the femoral diaphysis at the bottom edge of the field of view, there is a per meative lytic pattern along the femoral bony cortex in the frontal film. Consider three-phase bone s can for followup. PUBIS AND ISCHIUM: Markedly osteoporotic. No gross displaced acute fracture. PELVIS: Markedly osteoporotic. No gross displaced acute fracture. SACRUM: Osteoporotic. No gross acute displaced fracture. Mild sclerosis at both SI joints. LOWER LUMBAR SPINE: Lower lumbar facet arthropathy at L4-5 and L5-S1. SOFT TISSUES: No findings. OTHER: No other significant finding. IMPRESSION: No gross acute displaced fracture. Consider three-phase bone scan for followup, to eval uate for radiographically occult pelvic fracture, and to evaluate for loosening of the right and left femoral components of the hip prostheses. TECHNICAL DOCUMENTATION: JOB ID: [id number] [employer]- All Rights Reserved
== END ==
LOC: RAD 19:15
DX: M25.551 Pain in right hip (principal); Z96.649 Presence of unspecified artificial hip joint

== ENCOUNTER 2017-06-04 08:52 | Observation (INO) | payer MEDICARE, MEDICAID ==
[2017-06-04] MEDS ORDERED: ASPIRIN 81 MG TABLET, CHEWABLE PO ONE (09:01)
[2017-06-04] MEDS ORDERED: NITROGLYCERIN 2% OINTMENT 1 GM PACKET TP ONE (09:03)
--- NOTE | 2017-06-04 09:10 | ER Document Report ---
ED Respiratory Problem - General Chief Complaint: Shortness Of Breath Stated Complaint: RESPIRATORY DISTRESS Information source: Patient, Emergency Med Personnel TRAVEL OUTSIDE OF THE [place] IN LAST 30 DAYS: No - HPI Notes: 81 years old female presents today with sudden onset of shortness of breath this since this morning. This happened after she woke up. She is a dialysis patient has not missed any dialysis. Last dialysis was Wednesday. She denies any chest pain. Denies any palpitation or diaphoresis. EMS found with respiratory distress therefore put on BiPAP machine as well as given sublingual nitroglycerin as well as nitro paste and brought her to the ED. She states she is comfortable now than before. She was continuously given the BiPAP treatment. Denies any fever chills or other constitutional symptoms. She ate some salty soup yesterday - Related Data Allergies/Adverse Reactions: No Known Allergies Allergy (Verified 06/04/17 09:09) Home Medications: Current Home Medications Calcium Acetate [Phoslo 667 Mg Capsule] 1,334 mg PO .SNACKS 06/04/17 [History] Calcium Acetate [Phoslo 667 Mg Capsule] 2,001 mg PO MEALS 06/04/17 [History] Past Medical History - Social History Smoking Status: Former Smoker Frequency of alcohol use: None Drug Abuse: None Lives with: Family Family History: Reviewed & Not Pertinent - Past Medical History Cardiac Medical History: Reports: Hx Congestive Heart Failure, Hx Hypercholesterolemia, Hx Hypertension Pulmonary Medical History: Denies: Hx Tuberculosis Endocrine Medical History: Reports: Hx Diabetes Mellitus Type 2 Renal/ Medical History: Reports: Hx End Stage Renal Disease - On hemodialysis MWF. Denies: Hx Peritoneal Dialysis GI Medical History: Denies: None, Hx Cirrhosis, Hx Crohn's Disease, Hx Diverticulitis, Hx Gastritis, Hx Gastroesophageal Reflux Disease, Hx Hepatitis, Hx Hiatal Hernia, Hx Irritable Bowel, Hx Liver Failure, Hx Pancreatitis, Hx Ulcer, Hx Ulcerative Colitis, Hx Colonoscopy, Hx Endoscopic Retrograde Cholangio , Hx Endoscopy, Other Musculoskeltal Medical History: Reports Hx Arthritis Past Surgical History: Reports: Hx Orthopedic Surgery - Hip replacement, Hx Vascular Surgery - Fistula - Immunizations Immunizations up to date: Yes Hx Diphtheria, Pertussis, Tetanus Vaccination: Yes Hx Pneumococcal Vaccination: 07/07/13 Review of Systems - Review of Systems Notes: REVIEW OF SYSTEMS: CONSTITUTIONAL : Denies fever, chills, or sweats. Denies recent illness. EENT: Denies eye, ear, throat, or mouth pain or symptoms. Denies nasal or sinus congestion or discharge. Denies throat, tongue, or mouth swelling or difficulty swallowing. CARDIOVASCULAR: Denies chest pain. Denies palpitations or racing or irregular heart beat. Denies ankle edema. RESPIRATORY: As per history of complaint. GASTROINTESTINAL: Denies abdominal pain or distention. Denies nausea, vomiting , or diarrhea. Denies blood in vomitus, stools, or per rectum. Denies black, tarry stools. Denies constipation. GENITOURINARY: Denies difficulty urinating, painful urination, burning, frequency, blood in urine, or discharge. FEMALE GENITOURINARY: Denies vaginal bleeding, heavy or abnormal periods, irregular periods. Denies vaginal discharge or odor. MUSCULOSKELETAL: Denies back or neck pain or stiffness. Denies joint pain or swelling. SKIN: Denies rash, lesions or sores. HEMATOLOGIC : Denies easy bruising or bleeding. LYMPHATIC: Denies swollen, enlarged glands. NEUROLOGICAL: Denies confusion or altered mental status. Denies passing out or loss of consciousness. Denies dizziness or lightheadedness. Denies headache. Denies weakness or paralysis or loss of use of either side. Denies problems with gait or speech. Denies sensory loss, numbness, or tingling. Denies seizures. PSYCHIATRIC: Denies anxiety or stress. Denies depression, suicidal ideation, or homicidal ideation. ALL OTHER SYSTEMS REVIEWED AND NEGATIVE. PHYSICAL EXAMINATION: GENERAL: In no acute respiratory distress HEAD: Atraumatic, normocephalic. EYES: Pupils equal round and reactive to light, extraocular movements intact, conjunctiva are normal. ENT: Nares patent, oropharynx clear without exudates. Moist mucous membranes. NECK: Normal range of motion, supple without lymphadenopathy LUNGS: Lower lung field lower half of the lung field much inspiratory rales heard. No wheezes. No chest wall deformity noted. HEART: Regular rate and rhythm without murmurs ABDOMEN: Soft, nontender, nondistended abdomen. No guarding, no rebound. No masses appreciated. Female : deferred Musculoskeletal: Normal range of motion, no pitting or edema. No cyanosis. NEUROLOGICAL: Cranial nerves grossly intact. Normal speech, normal gait. Normal sensory, motor exams PSYCH: Normal mood, normal affect. SKIN: Warm, Dry, normal turgor, no rashes or lesions noted. Dictation was performed using [employer] voice recognition software Physical Exam - Vital signs Vitals: Pulse Ox 97 06/04/17 08:55 Course - Re-evaluation Re-evalutation: 06/04/17 09:15 Dr. Higgins with the screw machine setter was called and the case was discussed with him for possible immediate dialysis. 06/04/17 16:45 Her case again was discussed with Dr. Higgins, and hospitalist currently being admitted. She has completed her dialysis. - Vital Signs Vital signs: Temp Pulse Resp BP Pulse Ox 106 H 23 H 140/80 H 100 06/04/17 09:08 06/04/17 10:00 06/04/17 09:08 06/04/17 10:00 - Laboratory Result Diagrams: 06/04/17 09:01 06/04/17 09:01 Laboratory results interpreted by me: 06/04/17 06/04/17 06/04/17 08:52 09:01 09:01 WBC 18.0 H RBC 3.63 L Hgb 10.0 L Hct 32.3 L MCHC 31.1 L RDW 19.6 H Seg Neuts % (Manual) 91 H Lymphocytes % (Manual) 3 L Metamyelocytes % 1 H Abs Neuts (Manual) 16.6 H ABG pO2 55.2 L ABG HCO3 28.3 H ABG Total CO2 29.6 H ABG O2 Saturation 89.6 L Chloride 95 L BUN 32 H Creatinine 3.87 H Est GFR ( Amer) 14 L Est GFR (Non-Af Amer) 11 L Glucose 192 H Direct Bilirubin 0.7 H Creatine Kinase 26 L - Diagnostic Test Radiology results interpreted by me: 06/04/17 16:48 Radiology report reviewed - EKG Interpretation by Me EKG shows normal: Sinus rhythm - The sinus rhythm at rate of 103 bpm, left axis , no acute ST elevation ST depression T-wave inversion noted. Critical Care Note - Critical Care Note Total time excluding time spent on procedures (mins): 30 Comments: Acute cardiac ischemia acute pulmonary edema, EKG reviewed chest x-ray reviewed , managed dialysis. Discharge - Discharge Clinical Impression: Acute pulmonary edema, Non-STEMI (non-ST elevated myocardial infarction), Diabetes mellitus type 2 in obese Disposition: ADMITTED INPATIENT Admitting Provider: Hospitalist Unit Admitted: IMCU
[2017-06-04 09:16] LABS: HEMATOCRIT 32.3 % (36.0-47.0); HGB HCT DIFFERENCE -2.3; MEAN CORPUSCULAR HEMOGLOBIN 27.7 pg (27.0-33.4); MEAN CORPUSCULAR HGB CONC 31.1 g/dL (32.0-36.0); MEAN CORPUSCULAR VOLUME 89 fl (80-97); RED BLOOD COUNT 3.63 10^6/uL (3.72-5.28); RED CELL DISTRIBUTION WIDTH 19.6 % (11.5-14.0)
[2017-06-04 09:39] LABS: BASOPHILS % (MANUAL) 0 % (0-2); EOSINOPHILS % (MANUAL) 0 % (0-6); LYMPHOCYTES % (MANUAL) 3 % (13-45); TOTAL CELLS COUNTED 100
[2017-06-04 09:41] LABS: ANISOCYTOSIS 2+; OVALOCYTES 1+; POIKILOCYTOSIS 1+; POLYCHROMASIA SLIGHT; TEAR DROP CELLS SLIGHT; TOXIC VACUOLATION PRESENT
[2017-06-04 09:43] LABS: ALANINE AMINOTRANSFERASE 16 U/L (9-52); ALBUMIN 3.7 g/dL (3.5-5.0); ALKALINE PHOSPHATASE 122 U/L (38-126); ANION GAP 17 (5-19); ASPARTATE AMINO TRANSFERASE 30 U/L (14-36); BILIRUBIN,DIRECT 0.7 mg/dL (0.0-0.4); BILIRUBIN,TOTAL 0.8 mg/dL (0.2-1.3); BLOOD UREA NITROGEN 32 mg/dL (7-20); CALCIUM 9.6 mg/dL (8.4-10.2); CARBON DIOXIDE 29 mmol/L (22-30); CHLORIDE 95 mmol/L (98-107); CREATINE KINASE 26 U/L (30-135); CREATININE RESULT 3.87 mg/dL (0.52-1.25); GLUCOSE 192 mg/dL (75-110); POTASSIUM 4.9 mmol/L (3.6-5.0); SODIUM 140.6 mmol/L (137-145); TOTAL PROTEIN 7.5 g/dL (6.3-8.2)
[2017-06-04] MEDS ORDERED: HEPARIN SOD (PORCINE) 1,000 UNIT/ML 10 ML VIAL IV PRN (09:51)
[2017-06-04 09:55] LABS: CREATINE KINASE MB 0.65 ng/mL (<4.55)
[2017-06-04 09:58] LABS: TROPONIN I 1.97 ng/mL
[2017-06-04 10:14] LABS: ARTERIAL BLOOD BASE EXCESS 3.7 mmol/L; ARTERIAL BLOOD O2 SATURATION 89.6 % (94-98)
--- NOTE | 2017-06-04 10:37 | RADIOLOGY REPORT (SQ) ---
EXAM DESCRIPTION: CHEST SINGLE VIEW COMPLETED DATE/TIME: 06/04/2017 10:23 am REASON FOR STUDY: Shortness of breath COMPARISON: 03/19/2017 EXAM PARAMETERS: NUMBER OF VIEWS: One view. TECHNIQUE: Single frontal radiographic view of the chest acquired. RADIATION DOSE: NA LIMITATIONS: None. FINDINGS: LUNGS AND PLEURA: Mild somewhat asymmetrical pulmonary edema is suggested. There is consi derable retrocardiac opacity. MEDIASTINUM AND HILAR STRUCTURES: No masses. Contour normal. HEART AND VASCULAR STRUCTURES: Heart size borderline. BONES: No acute findings. HARDWARE: None in the chest. OTHER: No other significant finding. IMPRESSION: Borderline cardiomegaly with mild pulmonary edema. Cannot exclude left lower lobe conso lidation. TECHNICAL DOCUMENTATION: JOB ID: [id number] [employer]- All Rights Reserved
--- NOTE | 2017-06-04 11:22 | EKG REPORT ---
SEVERITY:- ABNORMAL ECG - SINUS TACHYCARDIA ATRIAL PREMATURE COMPLEX LVH WITH SECONDARY REPOLARIZATION ABNORMALITY ABNORMAL T, PROBABLE ISCHEMIA, LATERAL LEADS BORDERLINE PROLONGED QT INTERVAL : Confirmed by: Gerard Santillan 04-Jun-2017 11:21:47
--- NOTE | 2017-06-04 16:56 | PDOC CONSULTATION ---
Consultation Consult Date: 06/04/17 Consult reason:: ESRD for Acute hemodialysis in the setting of acute congestive heart failure History of Present Illness Admission Date/PCP: AUDELIA OCRONEL MD History of Present Illness: KEVIN BUSTAMANTE is a 81 year old female with a history of long-standing diabetes mellitus, hypertension and ESRD on hemodialysis was brought in with complaints of shortness of breath since this morning. She says she had her last dialysis on Wednesday. She is not a compliant patient with her diet and medications.The ER has revealed that she is in congestive heart failure and she is currently on BiPAP. She is currently feeling some better. She denies any history of chest pain, coughing spells fever chills. She was later seen on dialysis and is undergoing dialysis without any issues. Plan to remove about 5 L of fluid. Past Medical History Cardiac Medical History: Reports: CHF-Systolic, Hyperlipidemia, Hypertension- primary Pulmonary Medical History: Denies: Tuberculosis Endocrine Medical History: Reports: Diabetes Mellitus Type 2, Obesity Renal/ Medical History: Reports: End Stage Renal Disease - On hemodialysis MWF , Secondary Hyperparathyroidism GI Medical History: Denies: None, Cirrhosis, Crohn's Disease, Diverticulitis, Gastroesophageal Reflux Disease, Hepatitis, Hiatal Hernia, Ulcerative Colitis, Other Musculoskeltal Medical History: Reports: Arthritis Psychiatric Medical History: Denies: Depression Hematology Medical History: Reports Anemia of Chronic Kidney Disease Past Surgical History Past Surgical History: Reports: Orthopedic Surgery - Hip replacement, Vascular Surgery - Fistula Social History Lives with: Family Smoking Status: Former Smoker Frequency of Alcohol Use: None Hx Recreational Drug Use: No Drugs: None Hx Prescription Drug Abuse: No Family History Parental Family History Reviewed: No Children Family History Reviewed: No Sibling(s) Family History Reviewed.: No Medication/Allergy Home Medications: Amlodipine Besylate [Norvasc 5 mg Tablet] 5 mg PO Q12 04/20/17 Atorvastatin Calcium [Lipitor 20 mg Tablet] 20 mg PO QHS 04/20/17 Cinacalcet HCl [Sensipar 30 mg Tablet] 30 mg PO DAILY 04/20/17 Gabapentin [Neurontin 100 mg Capsule] 100 mg PO Q12 04/20/17 Linagliptin [Tradjenta] 5 mg PO DAILY 04/20/17 Losartan Potassium [Cozaar 100 mg Tablet] 100 mg PO DAILY 04/20/17 Calcium Acetate [Phoslo 667 Mg Capsule] 1,334 mg PO .SNACKS 06/04/17 Calcium Acetate [Phoslo 667 Mg Capsule] 2,001 mg PO MEALS 06/04/17 Allergies/Adverse Reactions: No Known Allergies Allergy (Verified 06/04/17 09:09) Review of Systems Constitutional: PRESENT: weakness. ABSENT: fever(s), headache(s), night sweats Cardiovascular: PRESENT: dyspnea on exertion, orthropnea. ABSENT: chest pain, palpitations Respiratory: PRESENT: dyspnea Gastrointestinal: PRESENT: abdominal pain - Awake. Nonfocal., melena. ABSENT: coffee ground emesis, diarrhea, dysphagia, heartburn, hematemesis, nausea, vomiting Musculoskeletal: ABSENT: deformity, joint swelling Neurological: ABSENT: confusion, convulsions, focal weakness Psychiatric: PRESENT: anxiety Hematologic/Lymphatic: ABSENT: easy bruising, lymphadenopathy Physical Exam Vital Signs: Temp Pulse Resp BP Pulse Ox 106 H 23 H 140/80 H 100 06/04/17 09:08 06/04/17 10:00 06/04/17 09:08 06/04/17 10:00 Intake & Output 06/03/17 06/04/17 06/05/17 06:59 06:59 06:59 Weight 80.8 kg General appearance: PRESENT: mild distress, obese Eye exam: PRESENT: conjunctiva pink, EOMI, PERRLA. ABSENT: scleral icterus Ear exam: PRESENT: normal external ear exam Mouth exam: PRESENT: moist, neck supple Neck exam: ABSENT: lymphadenopathy, meningismus, tenderness, thyromegaly, tracheal deviation Respiratory exam: PRESENT: clear to auscultation rose marie, crackles. ABSENT: stridor Cardiovascular exam: PRESENT: +S1, +S2, systolic murmur GI/Abdominal exam: PRESENT: normal bowel sounds, soft. ABSENT: diminished bowel sounds, organomegaly, tenderness Extremities exam: PRESENT: +1 edema Neurological exam: PRESENT: altered, oriented to person Psychiatric exam: PRESENT: anxious Skin exam: ABSENT: erythema, mottled, rash Results Laboratory Results: 06/04/17 09:01 06/04/17 09:01 06/04/17 06/04/17 06/04/17 08:52 09:01 09:01 WBC 18.0 H RBC 3.63 L Hgb 10.0 L Hct 32.3 L MCV 89 MCH 27.7 MCHC 31.1 L RDW 19.6 H Plt Count 241 Seg Neutrophils % Not Reportable Lymphocytes % Not Reportable Monocytes % Not Reportable Eosinophils % Not Reportable Basophils % Not Reportable Absolute Neutrophils Not Reportable Absolute Lymphocytes Not Reportable Absolute Monocytes Not Reportable Absolute Eosinophils Not Reportable Absolute Basophils Not Reportable Carbonic Acid 1.29 HCO3/H2CO3 Ratio 21:1 ABG pH 7.44 ABG pCO2 43.0 ABG pO2 55.2 L ABG HCO3 28.3 H ABG O2 Saturation 89.6 L ABG Base Excess 3.7 FiO2 35% Sodium 140.6 Potassium 4.9 Chloride 95 L Carbon Dioxide 29 Anion Gap 17 BUN 32 H Creatinine 3.87 H Est GFR ( Amer) 14 L Est GFR (Non-Af Amer) 11 L Glucose 192 H Calcium 9.6 Total Bilirubin 0.8 AST 30 ALT 16 Alkaline Phosphatase 122 Total Protein 7.5 Albumin 3.7 06/04/17 06/04/17 09:01 09:01 Creatine Kinase 26 L CK-MB (CK-2) 0.65 Troponin I 1.970 Impressions: Chest X-Ray 06/04/17 09:01 IMPRESSION: Borderline cardiomegaly with mild pulmonary edema. Cannot exclude left lower lobe consolidation. Assessment & Plan - Diagnosis (1) Acute congestive heart failure Plan: Currently in respiratory decompensation. On BiPAP.Will remove at least 5 L of fluids on ultrafiltration. Orders discussed with treating dialysis nurse Sandra. (2) Anemia in chronic kidney disease Plan: Withhold erythropoietin for now. Monitor. (4) End stage renal disease on dialysis Plan: Patient is undergoing dialysis which is being supervised to ensure safe and smooth procedure.We will remove at least 5 L of fluid as tolerated. Electrolytes are stable. Orders were discussed with the treating nurse Sandra. (5) Essential hypertension Plan: Relatively controlled. See response to dialysis and fluid removal.
[2017-06-04] MEDS ORDERED: ONDANSETRON 4 MG TAB.RAPDIS PO PRN (17:29)
[2017-06-04] MEDS ORDERED: ONDANSETRON HCL INJ/PF 4 MG/2 ML SDV IV PRN (17:29)
[2017-06-04] MEDS ORDERED: ALBUTEROL SULFATE 0.083% NEB 2.5 MG/3 ML AMPUL NEB PRN (17:29)
[2017-06-04] MEDS ORDERED: CALCIUM ACETATE 667 MG CAPSULE PO PRN (17:45)
--- NOTE | 2017-06-04 17:51 | PDOC H&P ---
History of Present Illness Admission Date/PCP: 06/04/17 17:26 AUDELIA CORONEL MD Patient complains of: Shortness of breath History of Present Illness: KEVIN BUSTAMANTE is a 81 year old female with a history of long-standing diabetes mellitus, hypertension and ESRD on hemodialysis was brought in with complaints of shortness of breath since this morning. She says she had her last dialysis on Wednesday. She is not a compliant patient with her diet and medications.The ER has revealed that she is in congestive heart failure and she is currently on BiPAP. She is currently feeling some better. She denies any history of chest pain, coughing spells fever chills. The patient has not had any chest pain. She does not have a history of coronary artery disease but was noted to have elevated troponins. The patient when she presented was in acute respiratory distress requiring BiPAP. The time my exam she had finished dialysis and was no longer short of breath. She was taken off the BiPAP and again reports that she has not had any chest pain. Past Medical History Cardiac Medical History: Reports: Congestive Heart Failure, Hyperlipidema, Hypertension Pulmonary Medical History: Denies: Tuberculosis Endocrine Medical History: Reports: Diabetes Mellitus Type 2, Obesity Renal/ Medical History: Reports: End Stage Renal Disease - On hemodialysis MWF GI Medical History: Denies: None, Cirrhosis, Crohn's Disease, Diverticulitis, Gastroesophageal Reflux Disease, Hepatitis, Hiatal Hernia, Ulcerative Colitis, Other Musculoskeltal Medical History: Reports: Arthritis Psychiatric Medical History: Denies: Depression Traumatic Medical History: Reports: None Hematology: Reports: Anemia Infectious Medical History: Reports: None Past Surgical History Past Surgical History: Reports: Orthopedic Surgery - Hip replacement, Vascular Surgery - Fistula Social History Information Source: Patient Lives with: Family Smoking Status: Former Smoker Frequency of Alcohol Use: None Hx Recreational Drug Use: No Drugs: None Hx Prescription Drug Abuse: No - Advance Directive Resuscitation Status: Do Not Resuscitate Surrogate healthcare decision maker:: Her daughter Family History Family History: DM, Hypertension Parental Family History Reviewed: Yes Children Family History Reviewed: No Sibling(s) Family History Reviewed.: No Medication/Allergy Home Medications: Amlodipine Besylate [Norvasc 5 mg Tablet] 5 mg PO Q12 04/20/17 Atorvastatin Calcium [Lipitor 20 mg Tablet] 20 mg PO QHS 04/20/17 Cinacalcet HCl [Sensipar 30 mg Tablet] 30 mg PO DAILY 04/20/17 Gabapentin [Neurontin 100 mg Capsule] 100 mg PO Q12 04/20/17 Linagliptin [Tradjenta] 5 mg PO DAILY 04/20/17 Losartan Potassium [Cozaar 100 mg Tablet] 100 mg PO DAILY 04/20/17 Calcium Acetate [Phoslo 667 Mg Capsule] 1,334 mg PO .SNACKS 06/04/17 Calcium Acetate [Phoslo 667 Mg Capsule] 2,001 mg PO MEALS 06/04/17 Allergies/Adverse Reactions: No Known Allergies Allergy (Verified 06/04/17 09:09) Review of Systems Constitutional: ABSENT: chills, fever(s), headache(s), weight gain, weight loss Eyes: ABSENT: visual disturbances Ears: ABSENT: hearing changes Cardiovascular: PRESENT: dyspnea on exertion, edema, orthropnea. ABSENT: chest pain, palpitations Respiratory: PRESENT: dyspnea. ABSENT: cough, hemoptysis, sputum Gastrointestinal: PRESENT: abdominal pain. ABSENT: constipation, diarrhea, hematemesis, hematochezia, nausea, vomiting Genitourinary: ABSENT: dysuria, hematuria Musculoskeletal: ABSENT: joint swelling Integumentary: ABSENT: rash, wounds Neurological: ABSENT: abnormal gait, abnormal speech, confusion, dizziness, focal weakness, syncope Psychiatric: ABSENT: anxiety, depression Endocrine: ABSENT: cold intolerance, heat intolerance, polydipsia, polyuria Hematologic/Lymphatic: ABSENT: easy bleeding, easy bruising Physical Exam Vital Signs: Temp Pulse Resp BP Pulse Ox 106 H 23 H 140/80 H 100 06/04/17 09:08 06/04/17 10:00 06/04/17 09:08 06/04/17 10:00 General appearance: PRESENT: no acute distress, morbidly obese Head exam: PRESENT: atraumatic, normocephalic Eye exam: PRESENT: conjunctiva pink, EOMI, PERRLA. ABSENT: scleral icterus Ear exam: PRESENT: normal external ear exam Mouth exam: PRESENT: moist, tongue midline Neck exam: ABSENT: JVD Respiratory exam: PRESENT: clear to auscultation rose marie. ABSENT: rales, rhonchi, wheezes Cardiovascular exam: PRESENT: RRR. ABSENT: diastolic murmur, rubs, systolic murmur GI/Abdominal exam: PRESENT: normal bowel sounds, soft, tenderness - Mild epigastric tenderness but no guarding or rebound.. ABSENT: distended, guarding , mass, organolmegaly, rebound Rectal exam: PRESENT: deferred Extremities exam: ABSENT: calf tenderness, clubbing, pedal edema Neurological exam: PRESENT: alert, awake, oriented to person, oriented to place , oriented to time, oriented to situation, CN II-XII grossly intact. ABSENT: motor sensory deficit Psychiatric exam: PRESENT: appropriate affect Skin exam: PRESENT: dry, intact, warm. ABSENT: cyanosis, rash Results Impressions: Chest X-Ray 06/04/17 09:01 IMPRESSION: Borderline cardiomegaly with mild pulmonary edema. Cannot exclude left lower lobe consolidation. Assessment & Plan - Diagnosis (1) Troponin level elevated Is this a current diagnosis for this admission?: Yes Plan: Patient denies having any chest pain. This most likely secondary to acute volume overload and chronic renal failure. Will check serial cardiac enzymes to make certain that they do not spike up. We will continue with aspirin. (2) Acute congestive heart failure Is this a current diagnosis for this admission?: Yes Plan: Secondary to acute renal failure and volume overload. Diastolic congestive heart failure acute on chronic. (3) End stage renal disease on dialysis Is this a current diagnosis for this admission?: Yes Plan: The patient had dialysis today. She is oxygenating adequately on room air. (4) Anemia in chronic kidney disease Is this a current diagnosis for this admission?: Yes (5) Diabetes mellitus type 2 in obese Is this a current diagnosis for this admission?: Yes Plan: We will cover with sliding scale insulin. (6) Essential hypertension Is this a current diagnosis for this admission?: Yes Plan: We will continue with her outpatient antihypertensives. (7) Hyperlipidemia Qualifiers: Hyperlipidemia type: unspecified Qualified Code(s): E78.5 - Hyperlipidemia , unspecified Is this a current diagnosis for this admission?: Yes (8) Rheumatoid arthritis Qualifiers: Rheumatoid arthritis location: multiple sites Rheumatoid factor presence: unspecified presence Qualified Code(s): M06.9 - Rheumatoid arthritis, unspecified Is this a current diagnosis for this admission?: Yes (9) DNR (do not resuscitate) Is this a current diagnosis for this admission?: Yes - Time Time Spent: 50 to 70 Minutes - Plan Summary Plan Summary: Patient will be admitted as an observation. If her troponins do not show a big increase we will plan on discharging home tomorrow morning.
[2017-06-04] MEDS ORDERED: DEXTROSE 40% GEL 15 GM TUBE PO PRN ×2 (17:56)
[2017-06-04] MEDS ORDERED: DEXTROSE 50%-WATER 25 GM/50 ML DISP.SYRIN IV PRN ×2 (17:56)
[2017-06-04] MEDS ORDERED: INSULIN LISPRO 100 UNIT/ML 3 ML VIAL SUBCUT PRN (17:56)
[2017-06-04] MEDS ORDERED: GLUCAGON,HUMAN RECOMB 1 MG INJ IM PRN (17:56)
[2017-06-04 19:09] LABS: CREATINE KINASE MB 0.91 ng/mL (<4.55); TROPONIN I 2.28 ng/mL
[2017-06-04] MEDS: ACETAMINOPHEN 325 MG TABLET PO PRN (21:07)
[2017-06-04] MEDS ORDERED: ATORVASTATIN CALCIUM 20 MG TABLET PO SCH (22:00)
[2017-06-04] MEDS ORDERED: FAMOTIDINE 20 MG TABLET PO SCH (22:00)
[2017-06-05] MEDS: ACETAMINOPHEN 325 MG TABLET PO PRN ×2 (00:32→07:05)
[2017-06-05] MEDS: AMLODIPINE BESYLATE 5 MG TABLET PO SCH ×2 (00:34→11:05)
[2017-06-05] MEDS: FAMOTIDINE 20 MG TABLET PO SCH ×2 (00:35→11:05)
[2017-06-05] MEDS: HEPARIN SOD (PORCINE) 5,000 UNIT/ML 1 ML SYRINGE SUBCUT SCH ×2 (00:36→06:20)
[2017-06-05] MEDS: GABAPENTIN 100 MG CAPSULE PO SCH ×2 (00:37→11:06)
[2017-06-05 01:04] LABS: CREATINE KINASE MB 0.53 ng/mL (<4.55)
[2017-06-05 01:13] LABS: TROPONIN I 2.36 ng/mL
[2017-06-05 05:46] LABS: HEMATOCRIT 25.7 % (36.0-47.0); HEMOGLOBIN 8.3 g/dL (12.0-15.5); HGB HCT DIFFERENCE -0.8; MEAN CORPUSCULAR HEMOGLOBIN 27.9 pg (27.0-33.4); MEAN CORPUSCULAR HGB CONC 32.3 g/dL (32.0-36.0); MEAN CORPUSCULAR VOLUME 86 fl (80-97); RED BLOOD COUNT 2.98 10^6/uL (3.72-5.28); RED CELL DISTRIBUTION WIDTH 19.3 % (11.5-14.0); WHITE BLOOD COUNT 9.4 10^3/uL (4.0-10.5)
[2017-06-05 06:08] LABS: ANION GAP 14 (5-19); BLOOD UREA NITROGEN 21 mg/dL (7-20); CALCIUM 9.4 mg/dL (8.4-10.2); CARBON DIOXIDE 29 mmol/L (22-30); CHLORIDE 95 mmol/L (98-107); CREATININE RESULT 2.47 mg/dL (0.52-1.25); GLUCOSE 100 mg/dL (75-110); SODIUM 137.5 mmol/L (137-145)
[2017-06-05 06:18] LABS: CREATINE KINASE MB 0.36 ng/mL (<4.55); TROPONIN I 1.95 ng/mL
[2017-06-05 06:21] LABS: CREATINE KINASE < 20 U/L (30-135); POTASSIUM 3.9 mmol/L (3.6-5.0)
[2017-06-05] MEDS ORDERED: OXYCODONE HCL IR 5 MG TABLET PO PRN (09:55)
[2017-06-05] MEDS ORDERED: LOSARTAN POTASSIUM 50 MG TABLET PO SCH (10:00)
[2017-06-05] MEDS ORDERED: CINACALCET HCL 30 MG TABLET PO SCH (10:00)
[2017-06-05] MEDS ORDERED: SITAGLIPTIN PHOSPHATE 25 MG TABLET PO SCH (10:00)
[2017-06-05] MEDS ORDERED: ASPIRIN 81 MG TABLET, ENT COATED PO SCH (10:00)
[2017-06-05] MEDS ORDERED: (PENDING PHARMACY ID) (Linagliptin [Tradjenta] 5 MG) PO SCH (10:00)
[2017-06-05] MEDS: CALCIUM ACETATE 667 MG CAPSULE PO SCH ×2 (10:50→11:06)
--- NOTE | 2017-06-05 11:44 | PDOC DISCHARGE SUMMARY ---
General - Admit/Disc Date/PCP Admission Date/Primary Care Provider: 06/04/17 17:26 AUDELIA CORONEL MD Discharge Date: 06/05/17 - Discharge Diagnosis (1) Troponin level elevated Is this a current diagnosis for this admission?: Yes Summary: Secondary to chronic renal failure and acute congestive heart failure because of volume overload. (2) Acute congestive heart failure Is this a current diagnosis for this admission?: Yes Summary: Acute on chronic diastolic dysfunction (3) End stage renal disease on dialysis Is this a current diagnosis for this admission?: Yes Summary: Patient received dialysis in the emergency room. (4) Anemia in chronic kidney disease Is this a current diagnosis for this admission?: Yes (5) Diabetes mellitus type 2 in obese Is this a current diagnosis for this admission?: Yes (6) Essential hypertension Is this a current diagnosis for this admission?: Yes (7) Hyperlipidemia Is this a current diagnosis for this admission?: Yes (8) Rheumatoid arthritis Is this a current diagnosis for this admission?: Yes (9) DNR (do not resuscitate) Is this a current diagnosis for this admission?: Yes - Additional Information Resuscitation Status: Do Not Resuscitate Discharge Diet: Cardiac, Diabetic Discharge Activity: Activity As Tolerated Home Medications: Amlodipine Besylate [Norvasc 5 mg Tablet] 5 mg PO Q12 04/20/17 Atorvastatin Calcium [Lipitor 20 mg Tablet] 20 mg PO QHS 04/20/17 Cinacalcet HCl [Sensipar 30 mg Tablet] 30 mg PO DAILY 04/20/17 Gabapentin [Neurontin 100 mg Capsule] 100 mg PO Q12 04/20/17 Linagliptin [Tradjenta] 5 mg PO DAILY 04/20/17 Losartan Potassium [Cozaar 100 mg Tablet] 100 mg PO DAILY 04/20/17 Calcium Acetate [Phoslo 667 mg Capsule] 1,334 mg PO .SNACKS 06/04/17 Calcium Acetate [Phoslo 667 mg Capsule] 2,001 mg PO MEALS 06/04/17 Aspirin [Ecotrin 81 mg EC Tablet] 81 mg PO DAILY tabec 06/05/17 Oxycodone HCl [Oxy-Ir 5 mg Tablet] 5 mg PO Q6HP PRN #10 tablet 06/05/17 History of Present Illness History of Present Illness: KEVIN BUSTAMANTE is a 81 year old female with a history of long-standing diabetes mellitus, hypertension and ESRD on hemodialysis was brought in with complaints of shortness of breath since this morning. She says she had her last dialysis on Wednesday. She is not a compliant patient with her diet and medications.The ER has revealed that she is in congestive heart failure and she is currently on BiPAP. She is currently feeling some better. She denies any history of chest pain, coughing spells fever chills. The patient has not had any chest pain. She does not have a history of coronary artery disease but was noted to have elevated troponins. The patient when she presented was in acute respiratory distress requiring BiPAP. The time my exam she had finished dialysis and was no longer short of breath. She was taken off the BiPAP and again reports that she has not had any chest pain. Hospital Course Hospital Course: 81-year-old female who presented with acute congestive heart failure secondary to volume overload because of her renal failure. She had missed dialysis. Patient was dialyzed in the emergency room and was admitted because she had elevated troponins. The patient had no complaints of chest pain during any of this. The patient's cardiac enzymes are felt to be elevated to the congestive heart failure and chronic renal failure. She was watched overnight and had no further complaints except for some right-sided neck pain. She was given oxycodone with good relief and sent home with a prescription for that. Physical Exam Vital Signs: Temp Pulse Resp BP Pulse Ox 98.9 F 100 23 H 135/75 H 100 06/05/17 11:23 06/05/17 11:23 06/05/17 11:23 06/05/17 11:23 06/05/17 11:23 Intake & Output 06/04/17 06/05/17 06/06/17 06:59 06:59 06:59 Intake Total 0 Output Total 3000 Balance -3000 Weight 80.5 kg General appearance: PRESENT: no acute distress Eye exam: PRESENT: conjunctiva pink. ABSENT: scleral icterus Mouth exam: PRESENT: moist, tongue midline Neck exam: ABSENT: JVD Respiratory exam: PRESENT: clear to auscultation rose marie. ABSENT: rales, rhonchi, wheezes Cardiovascular exam: PRESENT: RRR. ABSENT: diastolic murmur, rubs, systolic murmur GI/Abdominal exam: PRESENT: normal bowel sounds, soft. ABSENT: distended, guarding, mass, organolmegaly, rebound, tenderness Extremities exam: ABSENT: calf tenderness, clubbing, pedal edema Neurological exam: PRESENT: alert, awake, oriented to person, oriented to place , oriented to time, oriented to situation, CN II-XII grossly intact. ABSENT: motor sensory deficit Psychiatric exam: PRESENT: appropriate affect Skin exam: PRESENT: dry, intact, warm. ABSENT: cyanosis, rash Results Laboratory Results: 06/05/17 05:06 06/05/17 05:06 06/05/17 06/05/17 05:06 05:06 WBC 9.4 RBC 2.98 L Hgb 8.3 L Hct 25.7 L MCV 86 MCH 27.9 MCHC 32.3 RDW 19.3 H Plt Count 194 Sodium 137.5 Potassium 3.9 D Chloride 95 L Carbon Dioxide 29 Anion Gap 14 BUN 21 H Creatinine 2.47 H Est GFR ( Amer) 23 L Est GFR (Non-Af Amer) 19 L Glucose 100 Calcium 9.4 06/04/17 06/04/17 06/05/17 18:14 18:14 00:22 Creatine Kinase < 20 L < 20 L CK-MB (CK-2) 0.91 Troponin I 2.280 06/05/17 06/05/17 06/05/17 00:22 05:06 05:06 Creatine Kinase < 20 L CK-MB (CK-2) 0.53 0.36 Troponin I 2.360 1.950 Impressions: Chest X-Ray 06/04/17 09:01 IMPRESSION: Borderline cardiomegaly with mild pulmonary edema. Cannot exclude left lower lobe consolidation. Qualifiers PATEINT BEING DISCHARGED WITH ANY OF THE FOLLOWING DIAGNOSIS?: No Plan Discharge Plan: Patient is discharged to home. Follow-up with primary care in 1 week. Time Spent: Less than 30 Minutes
[2017-06-05 12:37] VITALS: BP 147/63
== END 2017-06-05 12:49 | disposition home health service (06) ==
LOC: ER 08:52 → EH 15:11 → UNDOADMOB 15:11 → EH 17:26 → INTOOBSV 17:26 → 3S 22:09
PROVIDERS: ADMIT Internal Medicine; ATTEND Internal Medicine
PROC: 5A1D70Z Performance of Urinary Filtration, Intermittent, Less than 6 Hours Per Day (ICD-10-PCS; principal; 2017-06-04)
DX: R79.89 Other specified abnormal findings of blood chemistry (principal); I13.2 Hypertensive heart and chronic kidney disease with heart failure and with stage 5 chronic kidney disease, or end stage renal disease; E11.22 Type 2 diabetes mellitus with diabetic chronic kidney disease; N18.6 End stage renal disease; I50.33 Acute on chronic diastolic (congestive) heart failure; E66.9 Obesity, unspecified; D63.1 Anemia in chronic kidney disease; E87.70 Fluid overload, unspecified; E78.5 Hyperlipidemia, unspecified; M06.9 Rheumatoid arthritis, unspecified; Z66 Do not resuscitate; M54.2 Cervicalgia; F41.9 Anxiety disorder, unspecified; Z79.899 Other long term (current) drug therapy; Z79.82 Long term (current) use of aspirin; Z99.2 Dependence on renal dialysis; Z91.11 Patient's noncompliance with dietary regimen; Z91.14 Patient's other noncompliance with medication regimen; Z87.891 Personal history of nicotine dependence; Z82.49 Family history of ischemic heart disease and other diseases of the circulatory system; Z68.32 Body mass index [BMI] 32.0-32.9, adult
CPT/HCPCS: 93005; 99291; 36415 ×2; 82553 ×2; 82962 ×2; 82803; 82550 ×2; 85025; 85027; 80048; 80053; 84484 ×2; 71010; 93010; 94660; G0257; A9270 ×13; J1644; J3490

== ENCOUNTER 2017-07-07 09:56 | Inpatient (IN) | payer MEDICARE, MEDICAID ==
--- NOTE | 2017-07-07 10:32 | ER Document Report ---
ED Medical Screen (RME) - General Chief Complaint: Abdominal Pain Stated Complaint: STOMACH PAIN Time Seen by Provider: 07/07/17 10:24 Notes: 81-year-old female dialysis patient brought to emergency room for chronic abdominal pain greater than 1 month. No appetite. And diarrhea for greater than 2 weeks. She also reports breathing issues today. She was supposed to go to dialysis at 11 AM today, but the daughter brought her to the emergency room instead feeling it is more important to address these chronic problems, rather than get her dialysis done first. She has been admitted here in March for various reasons, she has been to the emergency room in [place], the daughter reports no one is found explanation for her abdominal pain as to date. I have greeted and performed a rapid initial assessment of this patient. A comprehensive ED assessment and evaluation of the patient, analysis of test results and completion of the medical decision making process will be conducted by additional ED providers. TRAVEL OUTSIDE OF THE [place] IN LAST 30 DAYS: No - Related Data Allergies/Adverse Reactions: No Known Allergies Allergy (Verified 07/07/17 09:57) Past Medical History - Past Medical History Cardiac Medical History: Reports: Hx Congestive Heart Failure, Hx Hypercholesterolemia, Hx Hypertension Pulmonary Medical History: Denies: Hx Tuberculosis Endocrine Medical History: Reports: Hx Diabetes Mellitus Type 2 Renal/ Medical History: Reports: Hx End Stage Renal Disease - On hemodialysis MWFComment Only: Hx Peritoneal Dialysis - pt due for dialysis today GI Medical History: Denies: Hx Cirrhosis, Hx Crohn's Disease, Hx Diverticulitis , Hx Gastritis, Hx Gastroesophageal Reflux Disease, Hx Hepatitis, Hx Hiatal Hernia, Hx Irritable Bowel, Hx Liver Failure, Hx Pancreatitis, Hx Ulcer, Hx Ulcerative Colitis, Hx Colonoscopy, Hx Endoscopic Retrograde Cholangio, Hx Endoscopy Musculoskeltal Medical History: Reports Hx Arthritis Psychiatric Medical History: Denies: Hx Depression Infectious Medical History: Denies: Hx Hepatitis Past Surgical History: Reports: Hx Orthopedic Surgery - Hip replacement, Hx Vascular Surgery - Fistula - Immunizations Immunizations up to date: Yes Hx Diphtheria, Pertussis, Tetanus Vaccination: Yes History of Influenza Vaccine for 03/2017 - 08/2017 Season: Yes Influenza Administration Date for 03/2017 - 08/2017 Season: 02/26/17 Physical Exam - Vital signs Vitals: Temp Pulse Resp BP Pulse Ox 99.4 F 113 H 24 H 111/59 L 98 07/07/17 10:05 07/07/17 10:05 07/07/17 10:05 07/07/17 10:05 07/07/17 10:05 Course - Vital Signs Vital signs: Temp Pulse Resp BP Pulse Ox 99.4 F 113 H 24 H 111/59 L 98 07/07/17 10:05 07/07/17 10:05 07/07/17 10:05 07/07/17 10:05 07/07/17 10:05
[2017-07-07 11:22] LABS: HEMATOCRIT 28.6 % (36.0-47.0); HEMOGLOBIN 8.7 g/dL (12.0-15.5); MEAN CORPUSCULAR HEMOGLOBIN 26.1 pg (27.0-33.4); MEAN CORPUSCULAR HGB CONC 30.3 g/dL (32.0-36.0); MEAN CORPUSCULAR VOLUME 86 fl (80-97); PLATELET COUNT 461 10^3/uL (150-450); RED BLOOD COUNT 3.33 10^6/uL (3.72-5.28); RED CELL DISTRIBUTION WIDTH 19.2 % (11.5-14.0); WHITE BLOOD COUNT 16.8 10^3/uL (4.0-10.5)
[2017-07-07 11:39] LABS: ALANINE AMINOTRANSFERASE 25 U/L (9-52); ALBUMIN 2.8 g/dL (3.5-5.0); ALKALINE PHOSPHATASE 144 U/L (38-126); ANION GAP 15 (5-19); ASPARTATE AMINO TRANSFERASE 16 U/L (14-36); BILIRUBIN,DIRECT 0.5 mg/dL (0.0-0.4); BILIRUBIN,TOTAL 0.5 mg/dL (0.2-1.3); BLOOD UREA NITROGEN 39 mg/dL (7-20); CALCIUM 9.4 mg/dL (8.4-10.2); CARBON DIOXIDE 28 mmol/L (22-30); CHLORIDE 97 mmol/L (98-107); CREATINE KINASE 28 U/L (30-135); GLUCOSE 165 mg/dL (75-110); MAGNESIUM 1.9 mg/dL (1.6-2.3); SODIUM 139.6 mmol/L (137-145); TOTAL PROTEIN 6.1 g/dL (6.3-8.2)
[2017-07-07 11:44] LABS: POTASSIUM 2.8 mmol/L (3.6-5.0)
[2017-07-07 11:47] LABS: ABSOLUTE LYMPHOCYTES# (MANUAL) 0.7 10^3/uL (0.5-4.7); ABSOLUTE MONOCYTES # (MANUAL) 0.5 10^3/uL (0.1-1.4); ABSOLUTE NEUTROPHILS# (MANUAL) 15.6 10^3/uL (1.7-8.2); BASOPHILS % (MANUAL) 0 % (0-2); EOSINOPHILS % (MANUAL) 0 % (0-6); LYMPHOCYTES % (MANUAL) 4 % (13-45); MONOCYTES % (MANUAL) 3 % (3-13); SEGMENTED NEUTROPHILS % (MAN) 93 % (42-78); TOTAL CELLS COUNTED 100
[2017-07-07 11:53] LABS: CREATINE KINASE MB < 0.22 ng/mL (<4.55)
[2017-07-07 11:54] LABS: TROPONIN I 0.046 ng/mL
[2017-07-07 12:00] LABS: ANISOCYTOSIS 2+; OVALOCYTES 1+; PLATELET COMMENT INCREASED; POIKILOCYTOSIS 1+; TOXIC GRANULATION SLIGHT; TOXIC VACUOLATION PRESENT
[2017-07-07] MEDS ORDERED: POTASSIUM CHLORIDE 20 MEQ/15 ML UDCUP PO ONE (12:07)
[2017-07-07] MEDS ORDERED: VANCOMYCIN HCL INJ 1000 MG VIAL IV ONE (14:29)
[2017-07-07] MEDS ORDERED: METRONIDAZOLE 500 MG TABLET PO ONE (14:29)
[2017-07-07] MEDS ORDERED: HYDROCODONE/ACETAMINOPHEN 5-325 MG TABLET PO ONE (14:29)
--- NOTE | 2017-07-07 14:40 | RADIOLOGY REPORT (SQ) ---
EXAM DESCRIPTION: ABDOMEN 2 VIEWS COMPLETED DATE/TIME: 07/07/2017 2:27 pm REASON FOR STUDY: Chronic abd pain, SOB, skipped dialysis COMPARISON: 04/19/2017. FINDINGS: Portable upright imaging of the chest and upper abdomen. Lower abdomen not included. Low lung volumes with limiting motion artifact. Diminished basilar aeration with probable airspace d isease in the left lower lobe. Incomplete evaluation of the bowel gas pattern but no suspiciously distended loops. Pronounced right shoulder arthropathy. IMPRESSION: As above. Diminished aeration particularly in the left lower lobe. TECHNICAL DOCUMENTATION: JOB ID: [id number]
--- NOTE | 2017-07-07 14:41 | ER Document Report ---
ED GI/ - General Chief Complaint: Abdominal Pain Stated Complaint: STOMACH PAIN Time Seen by Provider: 07/07/17 10:24 Notes: 81-year-old female patient. Several month history of worsening abdominal pain. Was admitted to the hospital not too long ago for abdominal pain. Workup was unremarkable. Has now developed multiple daily watery stools. Abdominal pain is getting diffuse and getting worse. Now developing bedsores on the sacrum several days. Patient has a dialysis patient. Wednesday. Was unable to go to dialysis today due to her abdominal pain. TRAVEL OUTSIDE OF THE [place] IN LAST 30 DAYS: No - HPI Patient complains to provider of: Abdominal pain, Diarrhea Onset: Other - Several weeks Timing/Duration: Gradual, Constant Quality of pain: Cramping Severity at maximum: Moderate Severity in ED: Moderate Pain Level: 3 Context: denies: Bad food, Lifting, Out of the country travel, , Recent trauma, Other Location: Other - Diffuse - Related Data Allergies/Adverse Reactions: No Known Allergies Allergy (Verified 07/07/17 09:57) Home Medications: Current Home Medications Amlodipine Besylate [Norvasc 5 mg Tablet] 5 mg PO DAILY 07/07/17 [History] Atorvastatin Calcium [Lipitor 20 mg Tablet] 20 mg PO QHS 07/07/17 [History] Calcium Acetate 667 mg PO DAILY 07/07/17 [History] Cinacalcet HCl [Sensipar 30 Mg Tablet] 30 mg PO DAILY 07/07/17 [History] Cyproheptadine HCl [Periactin 4 Mg Tablet] 4 mg PO DAILY 07/07/17 [History] Linagliptin [Tradjenta] 5 mg PO DAILY 07/07/17 [History] Losartan Potassium [Cozaar 100 mg Tablet] 100 mg PO DAILY 07/07/17 [History] Ranitidine HCl [Zantac 150 mg Tablet] 150 mg PO Q12 07/07/17 [History] Past Medical History - General Information source: Relative - Social History Smoking Status: Never Smoker Cigarette use (# per day): No Chew tobacco use (# tins/day): No Smoking Education Provided: No Frequency of alcohol use: None Drug Abuse: None Lives with: Family Family History: Reviewed & Not Pertinent, DM, Hypertension Patient has suicidal ideation: No Patient has homicidal ideation: No - Past Medical History Cardiac Medical History: Reports: Hx Congestive Heart Failure, Hx Hypercholesterolemia, Hx Hypertension Pulmonary Medical History: Denies: Hx Tuberculosis Endocrine Medical History: Reports: Hx Diabetes Mellitus Type 2 Renal/ Medical History: Reports: Hx End Stage Renal Disease - On hemodialysis MWFComment Only: Hx Peritoneal Dialysis - pt due for dialysis today GI Medical History: Denies: Hx Cirrhosis, Hx Crohn's Disease, Hx Diverticulitis , Hx Gastritis, Hx Gastroesophageal Reflux Disease, Hx Hepatitis, Hx Hiatal Hernia, Hx Irritable Bowel, Hx Liver Failure, Hx Pancreatitis, Hx Ulcer, Hx Ulcerative Colitis, Hx Colonoscopy, Hx Endoscopic Retrograde Cholangio, Hx Endoscopy Musculoskeltal Medical History: Reports Hx Arthritis Psychiatric Medical History: Denies: Hx Depression Infectious Medical History: Denies: Hx Hepatitis Past Surgical History: Reports: Hx Orthopedic Surgery - Hip replacement, Hx Vascular Surgery - Fistula - Immunizations Immunizations up to date: Yes Hx Diphtheria, Pertussis, Tetanus Vaccination: Yes Hx Pneumococcal Vaccination: 07/07/13 Review of Systems - Review of Systems Constitutional: Fever, Malaise EENT: No symptoms reported Cardiovascular: No symptoms reported Respiratory: No symptoms reported Gastrointestinal: Abdomen distended, Abdominal pain, Diarrhea, Nausea Genitourinary: No symptoms reported Female Genitourinary: No symptoms reported Musculoskeletal: No symptoms reported Skin: Other - Sacral decubitus Hematologic/Lymphatic: No symptoms reported Neurological/Psychological: No symptoms reported Physical Exam - Vital signs Vitals: Temp Pulse Resp BP Pulse Ox 99.4 F 113 H 24 H 111/59 L 98 07/07/17 10:05 07/07/17 10:05 07/07/17 10:05 07/07/17 10:05 07/07/17 10:05 Interpretation: Normal - General General appearance: Appears well, Alert - HEENT Head: Normocephalic, Atraumatic Eyes: Normal Pupils: PERRL - Respiratory Respiratory status: No respiratory distress Chest status: Nontender Breath sounds: Normal Chest palpation: Normal - Cardiovascular Rhythm: Regular Heart sounds: Normal auscultation Murmur: No - Abdominal Inspection: Normal Distension: No distension Bowel sounds: Normal Tenderness: Tender - Mild diffuse tenderness. No obvious guarding, negative rebound Organomegaly: No organomegaly - Back Back: Normal, Nontender - Extremities General upper extremity: Normal inspection, Nontender, Normal color, Normal ROM , Normal temperature, Other - Left upper extremity with AV fistula consistent with dialysis site. General lower extremity: Normal inspection, Nontender, Normal color, Normal ROM , Normal temperature, Normal weight bearing. No: Barbi's sign Hip: Other - Neurological Neuro grossly intact: Yes Cognition: Normal Orientation: AAOx4 [place] Coma Scale Eye Opening: Spontaneous Maykel Coma Scale Verbal: Oriented Maykel Coma Scale Motor: Obeys Commands Maykel Coma Scale Total: 15 Speech: Normal Motor strength normal: LUE, RUE, LLE, RLE Sensory: Normal - Psychological Associated symptoms: Normal affect, Normal mood - Skin Skin Temperature: Warm Skin Moisture: Dry Skin Color: Normal Notes: There are sacral decubiti stage I present Course - Re-evaluation Re-evalutation: 07/07/17 15:04 This is a 81-year-old female with C. difficile colitis. Worsening symptoms over the course of several weeks to a month. Patient will need to be treated aggressively to avoid sepsis. Currently has a low-grade fever and an elevated WBC count. Will consult with hospitalist for admission. Will consult with chief yeoman to see if they can dialyze patient while she is in the hospital. Patient will require dialysis with medications we will be giving her. - Vital Signs Vital signs: Temp Pulse Resp BP Pulse Ox 99.3 F 113 H 16 102/54 L 100 07/07/17 17:09 07/07/17 10:05 07/07/17 18:01 07/07/17 18:01 07/07/17 18:01 - Laboratory Result Diagrams: 07/07/17 10:55 07/07/17 10:55 Laboratory results interpreted by me: 07/07/17 07/07/17 10:55 10:55 WBC 16.8 H RBC 3.33 L Hgb 8.7 L Hct 28.6 L MCH 26.1 L MCHC 30.3 L RDW 19.2 H Plt Count 461 H Seg Neuts % (Manual) 93 H Lymphocytes % (Manual) 4 L Abs Neuts (Manual) 15.6 H Potassium 2.8 L* Chloride 97 L BUN 39 H Creatinine 3.63 H Est GFR ( Amer) 15 L Est GFR (Non-Af Amer) 12 L Glucose 165 H Direct Bilirubin 0.5 H Alkaline Phosphatase 144 H Creatine Kinase 28 L Total Protein 6.1 L Albumin 2.8 L Discharge - Discharge Clinical Impression: C. difficile colitis Disposition: ADMITTED INPATIENT Admitting Provider: Hospitalist Unit Admitted: Medical Floor - [facility]
[2017-07-07] MEDS ORDERED: VANCOMYCIN HCL INJ 500 MG VIAL PO ONE (16:00)
--- NOTE | 2017-07-07 16:59 | RADIOLOGY REPORT (SQ) ---
EXAM DESCRIPTION: CT ABD/PELVIS NO ORAL OR IV COMPLETED DATE/TIME: 07/07/2017 4:39 pm REASON FOR STUDY: abd pain COMPARISON: 04/22/2017 TECHNIQUE: CT scan of the abdomen and pelvis performed without intravenous or oral contrast. Images reviewed with lung, soft tissue, and bone windows. Reconstructed coronal and sagittal MPR images revi ewed. All images stored on PACS. All CT scanners at this facility use dose modulation, iterative reconstruction, and/or weight based d osing when appropriate to reduce radiation dose to as low as reasonably achievable (ALARA). [facility]: Dose Right [facility]: CareDose [facility]: Dose Right [facility]: Teradose 4D [facility]: Smart [employer] RADIATION DOSE: CT Rad equipment meets quality standard of care and radiation dose reduction techniq ues were employed. CTDIvol: 13.1 mGy. DLP: 677 mGy-cm.mGy. LIMITATIONS: Pelvic images are limited due to artifact related to bilateral hip prostheses. FINDINGS: LOWER CHEST: A small left and tiny right pleural effusions are identified with associated airspace consolidation which could represent atelectatic changes or pneumonic consolidations. NON-CONTRASTED LIVER, SPLEEN, ADRENALS: Evaluation limited by lack of IV contrast. No identified sign ificant masses. The previously described thickening of the left adrenal gland appears stable. PANCREAS: No masses. No peripancreatic inflammatory changes. GALLBLADDER: Couple small gallstones are again identified. . No inflammatory changes to suggest chol ecystitis. RIGHT KIDNEY AND URETER: Small right kidney is again identified with cortical thinning. No suspiciou s masses. Assessment limited by lack of IV contrast. No significant calcifications. No hydronephr osis or hydroureter. LEFT KIDNEY AND URETER: Small left kidney is again identified with cortical thinning. No suspicious masses. Assessment limited by lack of IV contrast. No significant calcifications. No hydronephros is or hydroureter. AORTA AND RETROPERITONEUM: No aneurysm. There is some ectasia of the abdominal aorta and iliac vesse ls with vascular calcifications. No retroperitoneal masses or adenopathy. BOWEL AND PERITONEAL CAVITY: No obvious masses or inflammatory changes. No free fluid. APPENDIX: Not identified PELVIS, BLADDER, AND ABDOMINAL WALL:Limited visualization. No obvious masses. BONES: There is an apparent lytic process involving the superior endplate of the T12 vertebra and inf erior endplate of the T11 vertebra which was not present on the previous study. The appearance would suggest a discitis. MRI may be of value for further evaluation. Clinical correlation is recommende d. OTHER: No other significant finding. IMPRESSION: There is an apparent lytic process involving the superior endplate of the T12 vertebra a nd inferior endplate of the T11 vertebra which was not present on the previous study. The appearance would suggest a discitis. MRI may be of value for further evaluation. Other findings as noted abov e COMMENT: Quality ID # [id number]: Final reports with documentation of one or more dose reduction techniques (e.g., Automated exposure control, adjustment of the mA and/or kV according to patient size, use of iterative reconstruction technique) TECHNICAL DOCUMENTATION: JOB ID: [id number] [employer]- All Rights Reserved
--- NOTE | 2017-07-07 17:44 | PDOC H&P ---
History of Present Illness Admission Date/PCP: 07/07/17 AUDELIA CORONEL MD Patient complains of: 2 months abdominal pain, worsening diarrhea, pressure ulcers History of Present Illness: KEVIN BUSTAMANTE is a 81 year old female with history of CKD on iHD, HTN, HLD, DM who presents for evaluation of worsening abdominal pain and diarrhea. Majority of history is obtained by patient's daughter who is at bedside. States that she has had abdominal pain for the last 2 months. Was recently hospitalized in March 2017 with similar complaint and no clear etiology of abdominal pain. Over the past two weeks patient's abdominal pain is more severe. She has associated nausea and vomiting. PO intake is has been poor with associated 10-15lb weight loss. Also has had increased diarrhea. Over last 2-3 days, stools are looser, more foul smelling, and occurring 3-4 times per day. Has low grade fevers and chills. Patient also has chronic bed sores, which have increased in size and number. Has had purulent drainage. No history of debridement. Has daily dressing changes by daughter. Also, patient is a dialysis patient MWF. Last dialysis was on Wednesday however did not get dialyzed today. In ED, noted to have very tender abdomen. WBC 16.8 with left shift. Stool positive for C diff. CT AP without contrast obtained and shows possible LLL infiltrate and T12 discitis. Patient has no history of C diff and has not recently been on antibiotics. Past Medical History Cardiac Medical History: Reports: Congestive Heart Failure, Hyperlipidema, Hypertension Pulmonary Medical History: Denies: Tuberculosis Endocrine Medical History: Reports: Diabetes Mellitus Type 2 Renal/ Medical History: Reports: End Stage Renal Disease - On hemodialysis [facility] GI Medical History: Denies: Cirrhosis, Crohn's Disease, Diverticulitis, Gastroesophageal Reflux Disease, Hepatitis, Hiatal Hernia, Ulcerative Colitis Musculoskeltal Medical History: Reports: Arthritis Psychiatric Medical History: Denies: Depression Hematology: Reports: Anemia Past Surgical History Past Surgical History: Reports: Orthopedic Surgery - Hip replacement, Vascular Surgery - Fistula Social History Information Source: Relative - Daughter who is at bedside Lives with: Family Smoking Status: Never Smoker Frequency of Alcohol Use: None Hx Recreational Drug Use: No Drugs: None Hx Prescription Drug Abuse: No - Advance Directive Resuscitation Status: Full Code Family History Family History: Reviewed & Not Pertinent, DM, Hypertension Parental Family History Reviewed: No Children Family History Reviewed: NA Sibling(s) Family History Reviewed.: NA Medication/Allergy Home Medications: Amlodipine Besylate [Norvasc 5 mg Tablet] 5 mg PO DAILY 07/07/17 Atorvastatin Calcium [Lipitor 20 mg Tablet] 20 mg PO QHS 07/07/17 Calcium Acetate 667 mg PO DAILY 07/07/17 Cinacalcet HCl [Sensipar 30 Mg Tablet] 30 mg PO DAILY 07/07/17 Cyproheptadine HCl [Periactin 4 Mg Tablet] 4 mg PO DAILY 07/07/17 Linagliptin [Tradjenta] 5 mg PO DAILY 07/07/17 Losartan Potassium [Cozaar 100 mg Tablet] 100 mg PO DAILY 07/07/17 Ranitidine HCl [Zantac 150 mg Tablet] 150 mg PO Q12 07/07/17 Allergies/Adverse Reactions: No Known Allergies Allergy (Verified 07/07/17 09:57) Review of Systems Constitutional: PRESENT: chills, fatigue, weakness, weight loss Gastrointestinal: PRESENT: as per HPI, diarrhea, nausea, vomiting. ABSENT: hematemesis, melena Physical Exam Vital Signs: Temp Pulse Resp BP Pulse Ox 99.3 F 113 H 15 107/61 100 07/07/17 17:09 07/07/17 10:05 07/07/17 17:09 07/07/17 15:01 07/07/17 17:09 Intake & Output 07/06/17 07/07/17 07/08/17 06:59 06:59 06:59 Weight 72.575 kg General appearance: PRESENT: other - Frail appearing, lying in bed, answering some questions, mild distress due to discomfort Head exam: PRESENT: atraumatic, normocephalic Mouth exam: PRESENT: dry mucosa Teeth exam: PRESENT: edentulous Respiratory exam: PRESENT: clear to auscultation rose marie - decreased on left base, decreased breath sounds Cardiovascular exam: PRESENT: tachycardia. ABSENT: systolic murmur GI/Abdominal exam: PRESENT: distended, normal bowel sounds, tenderness Neurological exam: PRESENT: alert, awake - Unable to perform focus neuro exam due to current state Psychiatric exam: ABSENT: agitated Results Laboratory Results: 07/07/17 10:55 07/07/17 10:55 07/07/17 07/07/17 07/07/17 10:55 10:55 11:05 WBC 16.8 H RBC 3.33 L Hgb 8.7 L Hct 28.6 L MCV 86 MCH 26.1 L MCHC 30.3 L RDW 19.2 H Plt Count 461 H Seg Neutrophils % Not Reportable Lymphocytes % Not Reportable Monocytes % Not Reportable Eosinophils % Not Reportable Basophils % Not Reportable Absolute Neutrophils Not Reportable Absolute Lymphocytes Not Reportable Absolute Monocytes Not Reportable Absolute Eosinophils Not Reportable Absolute Basophils Not Reportable Sodium 139.6 Potassium 2.8 L* Chloride 97 L Carbon Dioxide 28 Anion Gap 15 BUN 39 H Creatinine 3.63 H Est GFR ( Amer) 15 L Est GFR (Non-Af Amer) 12 L Glucose 165 H Calcium 9.4 Magnesium 1.9 Total Bilirubin 0.5 AST 16 ALT 25 Alkaline Phosphatase 144 H Total Protein 6.1 L Albumin 2.8 L Stool for White Cells NO WBCs SEEN 07/07/17 07/07/17 10:55 10:55 Creatine Kinase 28 L CK-MB (CK-2) < 0.22 Troponin I 0.046 Impressions: Abdomen X-Ray 07/07/17 10:29 IMPRESSION: As above. Diminished aeration particularly in the left lower lobe. Abdomen/Pelvis CT 07/07/17 14:27 IMPRESSION: There is an apparent lytic process involving the superior endplate of the T12 vertebra and inferior endplate of the T11 vertebra which was not present on the previous study. The appearance would suggest a discitis. MRI may be of value for further evaluation. Other findings as noted above Assessment & Plan - Diagnosis (1) C. difficile colitis Is this a current diagnosis for this admission?: Yes Plan: Stool sample today positive for C. diff. No history of CDI previously. Patient does get dialysis which puts her at increased risk for community acquired CDI. No recent antibiotic use. - Received PO Vanc 500mg in ED - Will start PO Vanc 125 q6 hours for 10-14 days - If diarrhea worsens or symptoms do no improve, will start PO/IV Flagyl - Enteric precautions ordered - CT Reviewed and no evidence of complications secondary to CDI (2) Sacral decubitus ulcer, stage II Is this a current diagnosis for this admission?: Yes Plan: Continues to worsen despite home care with purulent drainage - Will request RN to evaluate - Continue daily dressing - Checking blood cultures - Renally doses Vanc/Zosyn started empirically - If felt necessary, will consult general surgery for eval and possible debridement (3) CKD (chronic kidney disease) requiring chronic dialysis Is this a current diagnosis for this admission?: Yes Plan: Current on HD MWF, missed dialysis today. Not overly hypervolemic on exam. - Consulted Nephrology, appreciate recs - Will likely need HD on 07/08 and Sunday 07/09 (4) PNA (pneumonia) Qualifiers: Aspiration pneumonia type: unspecified Laterality: left Lung location: lower lobe of lung Is this a current diagnosis for this admission?: Yes Plan: Noted on imaging in ED - Will obtained formal CXR to better assess - Blood cultures obtained - Will give empiric dose of Vanc/Zosyn (5) Discitis of lumbar region Is this a current diagnosis for this admission?: Yes Plan: Noted on CT AP today - Will obtain MRI for formal evaluation - Infectious management per above - Time Time Spent: 50 to 70 Minutes Critical Time spent with patient: Less than 15 minutes - Inpatient Certification Medical Necessity: Significant Comorbidiites Make Outpatient Treatment Too Risky , Need Close Monitoring Due to Risk of Patient Decompensation, Need for IV Antibiotics
[2017-07-07] MEDS ORDERED: ONDANSETRON HCL 8 MG TABLET PO PRN (17:45)
[2017-07-07] MEDS ORDERED: ONDANSETRON 4 MG TAB.RAPDIS PO PRN (17:51)
[2017-07-07] MEDS ORDERED: VANCOMYCIN HCL 1,500 MG in DEXTROSE 5%-WATER 250 ML IV ONE (18:00)
--- NOTE | 2017-07-07 18:27 | RADIOLOGY REPORT (SQ) ---
EXAM DESCRIPTION: CHEST SINGLE VIEW COMPLETED DATE/TIME: 07/07/2017 6:17 pm REASON FOR STUDY: LLL airway disease on abdominal xray, r/o PNA. LIMITED TO SINGLE VIEW COMPARISON: 07/07/2017. EXAM PARAMETERS: NUMBER OF VIEWS: One view. TECHNIQUE: Single frontal radiographic view of the chest acquired. RADIATION DOSE: NA LIMITATIONS: None. FINDINGS: LUNGS AND PLEURA: Low lung volumes. Faint basilar densities, left greater than right. Sm all effusions. MEDIASTINUM AND HILAR STRUCTURES: No masses. Contour normal. HEART AND VASCULAR STRUCTURES: Cardiomegaly. BONES: No acute findings. HARDWARE: None in the chest. OTHER: No other significant finding. IMPRESSION: LOW LUNG VOLUMES WITH FAINT BASILAR ATELECTASIS/ INFILTRATE AND SMALL PLEURAL EFFUSIONS. CARDIOMEGALY. TECHNICAL DOCUMENTATION: JOB ID: [id number] [employer]- All Rights Reserved
--- NOTE | 2017-07-07 18:40 | EKG REPORT ---
SEVERITY:- ABNORMAL ECG - SINUS TACHYCARDIA SUPRAVENTRICULAR BIGEMINY AND PAT. LVH WITH SECONDARY REPOLARIZATION ABNORMALITY BORDERLINE PROLONGED QT INTERVAL : Confirmed by: Roni Valladares MD 07-Jul-2017 18:40:12
[2017-07-07] MEDS: PIPERACILLIN SODIUM/TAZOBACTAM 2.25 GM in NORMAL SALINE 50 ML IV SCH (22:54)
[2017-07-07] MEDS: ATORVASTATIN CALCIUM 20 MG TABLET PO SCH (22:54)
[2017-07-07] MEDS: HEPARIN SOD (PORCINE) 5,000 UNIT/ML 1 ML SYRINGE SUBCUT SCH (22:54)
[2017-07-08] MEDS: VANCOMYCIN HCL INJ 500 MG VIAL PO SCH ×4 (00:50→17:30)
[2017-07-08] MEDS: PIPERACILLIN SODIUM/TAZOBACTAM 2.25 GM in NORMAL SALINE 50 ML IV SCH ×2 (06:30→14:53)
[2017-07-08] MEDS: HEPARIN SOD (PORCINE) 5,000 UNIT/ML 1 ML SYRINGE SUBCUT SCH ×3 (06:30→23:28)
[2017-07-08 07:19] LABS: HEMATOCRIT 24.5 % (36.0-47.0); MEAN CORPUSCULAR HEMOGLOBIN 26.3 pg (27.0-33.4); MEAN CORPUSCULAR HGB CONC 30.7 g/dL (32.0-36.0); MEAN CORPUSCULAR VOLUME 86 fl (80-97); PLATELET COUNT 363 10^3/uL (150-450); RED BLOOD COUNT 2.86 10^6/uL (3.72-5.28); RED CELL DISTRIBUTION WIDTH 19.6 % (11.5-14.0); WHITE BLOOD COUNT 14.9 10^3/uL (4.0-10.5)
[2017-07-08 07:25] LABS: HEMOGLOBIN 7.5 g/dL (12.0-15.5)
[2017-07-08 07:35] LABS: ANION GAP 15 (5-19); BLOOD UREA NITROGEN 46 mg/dL (7-20); CARBON DIOXIDE 27 mmol/L (22-30); CHLORIDE 96 mmol/L (98-107); GLUCOSE 137 mg/dL (75-110); SODIUM 137.5 mmol/L (137-145)
[2017-07-08 08:07] LABS: ABSOLUTE LYMPHOCYTES# (MANUAL) 0.3 10^3/uL (0.5-4.7); ABSOLUTE MONOCYTES # (MANUAL) 0.4 10^3/uL (0.1-1.4); ABSOLUTE NEUTROPHILS# (MANUAL) 14.2 10^3/uL (1.7-8.2); ANISOCYTOSIS 2+; BASOPHILS % (MANUAL) 0 % (0-2); EOSINOPHILS % (MANUAL) 0 % (0-6); LYMPHOCYTES % (MANUAL) 2 % (13-45); METAMYELOCYTES % (MANUAL) 1 % (0); MONOCYTES % (MANUAL) 3 % (3-13); SEGMENTED NEUTROPHILS % (MAN) 94 % (42-78); TOTAL CELLS COUNTED 100; TOXIC VACUOLATION PRESENT
[2017-07-08 08:08] LABS: OVALOCYTES SLIGHT; PLATELET COMMENT ADEQUATE; POIKILOCYTOSIS SLIGHT
[2017-07-08] MEDS ORDERED: ENOXAPARIN SODIUM INJ 40 MG/0.4 ML DISP.SYRIN SUBCUT SCH (10:00)
[2017-07-08] MEDS ORDERED: POTASSIUM CHLORIDE 10 MEQ TABLET.SA PO ONE (11:00)
[2017-07-08] MEDS: CALCIUM ACETATE 667 MG CAPSULE PO SCH (11:49)
[2017-07-08] MEDS: CINACALCET HCL 30 MG TABLET PO SCH (11:52)
[2017-07-08] MEDS: CYPROHEPTADINE HCL 4 MG TABLET PO SCH (11:52)
[2017-07-08] MEDS: LOSARTAN POTASSIUM 50 MG TABLET PO SCH (12:12)
[2017-07-08 14:44] LABS: HEMATOCRIT 27.3 % (36.0-47.0); HEMOGLOBIN 8.2 g/dL (12.0-15.5); MEAN CORPUSCULAR VOLUME 87 fl (80-97); RED BLOOD COUNT 3.15 10^6/uL (3.72-5.28); RED CELL DISTRIBUTION WIDTH 19.5 % (11.5-14.0); WHITE BLOOD COUNT 17.6 10^3/uL (4.0-10.5)
[2017-07-08 15:00] LABS: ANION GAP 14 (5-19); BLOOD UREA NITROGEN 49 mg/dL (7-20); CALCIUM 9.3 mg/dL (8.4-10.2); CARBON DIOXIDE 28 mmol/L (22-30); CHLORIDE 97 mmol/L (98-107); GLUCOSE 118 mg/dL (75-110); POTASSIUM 3.1 mmol/L (3.6-5.0); SODIUM 138.9 mmol/L (137-145)
[2017-07-08 15:09] LABS: PLATELET COUNT 353 10^3/uL (150-450)
[2017-07-08] MEDS ORDERED: POTASSI CL 20 MEQ/50 ML RIDER 20 MEQ/50 ML RTUPB IV ONE (16:31)
[2017-07-08] MEDS ORDERED: POTASSIUM CHLORIDE 20 MEQ/50 ML RTU IV ONE ×3 (17:00→21:30)
--- NOTE | 2017-07-08 19:05 | PDOC PROGRESS REPORT ---
Subjective Progress Note for:: 07/08/17 Subjective:: No overnight events. Diarrhea noted to slow down, only 2 episodes over last 12 hours. Continues to have abdominal pain. Denies fevers or chills Reason For Visit: C DIFF COLITIS,SACRAL WOUND,CHRONIC KIDNEY DISEASE Physical Exam Vital Signs: Temp Pulse Resp BP Pulse Ox 97.7 F 93 16 110/57 L 98 07/08/17 16:00 07/08/17 16:00 07/08/17 16:00 07/08/17 16:00 07/08/17 16:00 Intake & Output 07/07/17 07/08/17 07/09/17 06:59 06:59 06:59 Intake Total 220 272 Balance 220 272 Weight 65.4 kg General appearance: PRESENT: obese, other - Resting in bed. Mouth exam: PRESENT: dry mucosa Respiratory exam: PRESENT: clear to auscultation rose marie - anteriorly Cardiovascular exam: PRESENT: RRR. ABSENT: tachycardia GI/Abdominal exam: PRESENT: distended, normal bowel sounds, tenderness Neurological exam: PRESENT: alert, awake - Full neuro exam not performed Results Laboratory Results: 07/08/17 14:31 07/08/17 14:24 07/08/17 07/08/17 07/08/17 06:39 06:39 14:24 WBC 14.9 H RBC 2.86 L Hgb 7.5 L Hct 24.5 L MCV 86 MCH 26.3 L MCHC 30.7 L RDW 19.6 H Plt Count 363 Seg Neutrophils % Not Reportable Lymphocytes % Not Reportable Monocytes % Not Reportable Eosinophils % Not Reportable Basophils % Not Reportable Absolute Neutrophils Not Reportable Absolute Lymphocytes Not Reportable Absolute Monocytes Not Reportable Absolute Eosinophils Not Reportable Absolute Basophils Not Reportable Sodium 137.5 138.9 Potassium 3.0 L* 3.1 L Chloride 96 L 97 L Carbon Dioxide 27 28 Anion Gap 15 14 BUN 46 H 49 H Creatinine 4.04 H 4.07 H Est GFR ( Amer) 13 L 13 L Est GFR (Non-Af Amer) 11 L 11 L Glucose 137 H 118 H Calcium 9.0 9.3 07/08/17 14:31 WBC 17.6 H RBC 3.15 L Hgb 8.2 L Hct 27.3 L MCV 87 MCH 26.0 L MCHC 30.0 L RDW 19.5 H Plt Count 353 Seg Neutrophils % Lymphocytes % Monocytes % Eosinophils % Basophils % Absolute Neutrophils Absolute Lymphocytes Absolute Monocytes Absolute Eosinophils Absolute Basophils Sodium Potassium Chloride Carbon Dioxide Anion Gap BUN Creatinine Est GFR ( Amer) Est GFR (Non-Af Amer) Glucose Calcium 07/07/17 07/07/17 17:38 23:12 Troponin I 0.043 0.049 Impressions: Chest X-Ray 07/07/17 00:00 IMPRESSION: LOW LUNG VOLUMES WITH FAINT BASILAR ATELECTASIS/ INFILTRATE AND SMALL PLEURAL EFFUSIONS. CARDIOMEGALY. Abdomen X-Ray 07/07/17 10:29 IMPRESSION: As above. Diminished aeration particularly in the left lower lobe. Abdomen/Pelvis CT 07/07/17 14:27 IMPRESSION: There is an apparent lytic process involving the superior endplate of the T12 vertebra and inferior endplate of the T11 vertebra which was not present on the previous study. The appearance would suggest a discitis. MRI may be of value for further evaluation. Other findings as noted above Assessment & Plan - Diagnosis (1) C. difficile colitis Is this a current diagnosis for this admission?: Yes Plan: Stool sample today positive for C. diff. No history of CDI previously. Patient does get dialysis which puts her at increased risk for community acquired CDI. No recent antibiotic use. - Received PO Vanc 500mg in ED at admission, continue PO Vanc 125 q6 hours for 10-14 days - If diarrhea worsens or symptoms do no improve, will start PO/IV Flagyl - Enteric precautions ordered - CT Reviewed and no evidence of complications secondary to CDI (2) Sacral decubitus ulcer, stage II Is this a current diagnosis for this admission?: Yes Plan: Continues to worsen despite home care with purulent drainage - Seen by wound team today, recommendations provided - Continue daily dressing (3) CKD (chronic kidney disease) requiring chronic dialysis Is this a current diagnosis for this admission?: Yes Plan: Current on HD MWF, missed dialysis today. Not overly hypervolemic on exam. - Consulted Nephrology, appreciate recs - HD not done on , no urgent indication for dialysis today - Will need HD on Sunday 07/09 (4) PNA (pneumonia) Qualifiers: Aspiration pneumonia type: unspecified Laterality: left Lung location: lower lobe of lung Is this a current diagnosis for this admission?: Yes (5) Discitis of lumbar region Is this a current diagnosis for this admission?: Yes Plan: Noted on CT AP today - MRI not obtained at this time. - Infectious management per above (6) Bacteremia Is this a current diagnosis for this admission?: Yes Plan: Blood cultures positive for GPC in clusters in 2/2 bottles - Will continue renally dose Vanc/ Zosyn - Follow Sensitivities and speciation and tailor antibiotics - Repeat blood cultures on 07/09 to document clearance - Time Time Spent with patient: Less than 15 minutes
--- NOTE | 2017-07-08 23:04 | PDOC CONSULTATION ---
Consultation Consult Date: 07/08/17 Consult reason:: esrd History of Present Illness Admission Date/PCP: 07/07/17 17:36 AUDELIA CORONEL MD History of Present Illness: KEVIN BUSTAMANTE is a 81 year old female with history of CKD on HD, HTN, HLD, DM who presents for evaluation of worsening abdominal pain and diarrhea. Majority of history is obtained by patient's family member at bedside. Has had on and off abdominal pain for the past two months. Was hospitalized in March 2017 with similar complaint and no clear etiology of abdominal pain. Over the past two weeks patient's abdominal pain is more severe. She has associated nausea and vomiting. Also has had increased diarrhea. Has low grade fevers and chills. Labs were drawn in the ED and showed a low potassium, elevated white count and a low hemoglobin. Upon admission she was found to be c-diff positive and was started on oral vanc. Blood cultures are still pending. She has no recent history of antibiotic use. Today she is feeling better and the diarrhea has slightly decreased. She does still have the abdominal pain. Past Medical History Cardiac Medical History: Reports: CHF-Systolic, Hyperlipidemia, Hypertension- primary Pulmonary Medical History: Denies: Tuberculosis Endocrine Medical History: Reports: Diabetes Mellitus Type 2 Renal/ Medical History: Reports: End Stage Renal Disease - On hemodialysis MWF GI Medical History: Denies: Cirrhosis, Crohn's Disease, Diverticulitis, Gastroesophageal Reflux Disease, Hepatitis, Hiatal Hernia, Ulcerative Colitis Musculoskeltal Medical History: Reports: Arthritis Psychiatric Medical History: Denies: Depression Past Surgical History Past Surgical History: Reports: Orthopedic Surgery - Hip replacement, Vascular Surgery - Fistula Social History Lives with: Family Smoking Status: Never Smoker Frequency of Alcohol Use: None Hx Recreational Drug Use: No Drugs: None Hx Prescription Drug Abuse: No - Advance Directive Resuscitation Status: Full Code Family History Parental Family History Reviewed: No Children Family History Reviewed: NA Sibling(s) Family History Reviewed.: NA Medication/Allergy Home Medications: Amlodipine Besylate [Norvasc 5 mg Tablet] 5 mg PO DAILY 07/07/17 Atorvastatin Calcium [Lipitor 20 mg Tablet] 20 mg PO QHS 07/07/17 Calcium Acetate 667 mg PO DAILY 07/07/17 Cinacalcet HCl [Sensipar 30 Mg Tablet] 30 mg PO DAILY 07/07/17 Cyproheptadine HCl [Periactin 4 Mg Tablet] 4 mg PO DAILY 07/07/17 Linagliptin [Tradjenta] 5 mg PO DAILY 07/07/17 Losartan Potassium [Cozaar 100 mg Tablet] 100 mg PO DAILY 07/07/17 Ranitidine HCl [Zantac 150 mg Tablet] 150 mg PO Q12 07/07/17 Allergies/Adverse Reactions: No Known Allergies Allergy (Verified 07/07/17 09:57) Review of Systems Constitutional: PRESENT: anorexia, chills, fatigue, fever(s), weakness Ears: PRESENT: hearing changes Cardiovascular: PRESENT: dyspnea on exertion - -chronic. ABSENT: chest pain Respiratory: PRESENT: cough, sputum Gastrointestinal: PRESENT: abdominal pain, diarrhea, nausea, vomiting Musculoskeletal: PRESENT: muscle weakness Neurological: PRESENT: lack of coordination, memory loss Physical Exam Vital Signs: Temp Pulse Resp BP Pulse Ox 98.4 F 102 H 18 113/58 L 98 07/08/17 19:56 07/08/17 19:56 07/08/17 19:56 07/08/17 19:56 07/08/17 19:56 Intake & Output 07/07/17 07/08/17 07/09/17 06:59 06:59 06:59 Intake Total 220 272 Balance 220 272 Weight 65.4 kg General appearance: PRESENT: no acute distress, well-developed, well-nourished Mouth exam: PRESENT: moist, tongue midline Neck exam: ABSENT: full ROM, JVD Respiratory exam: PRESENT: clear to auscultation rose marie. ABSENT: accessory muscle use, rales, wheezes Cardiovascular exam: PRESENT: RRR, +S1, +S2 GI/Abdominal exam: PRESENT: guarding, hyperactive bowel sounds, soft, tenderness Extremities exam: PRESENT: pedal edema - -trace+. ABSENT: tenderness Neurological exam: PRESENT: awake, oriented to place, oriented to situation. ABSENT: oriented to person, oriented to time Skin exam: PRESENT: erythema, rash Results Laboratory Results: 07/08/17 14:31 07/08/17 14:24 07/08/17 07/08/17 07/08/17 06:39 06:39 14:24 WBC 14.9 H RBC 2.86 L Hgb 7.5 L Hct 24.5 L MCV 86 MCH 26.3 L MCHC 30.7 L RDW 19.6 H Plt Count 363 Seg Neutrophils % Not Reportable Lymphocytes % Not Reportable Monocytes % Not Reportable Eosinophils % Not Reportable Basophils % Not Reportable Absolute Neutrophils Not Reportable Absolute Lymphocytes Not Reportable Absolute Monocytes Not Reportable Absolute Eosinophils Not Reportable Absolute Basophils Not Reportable Sodium 137.5 138.9 Potassium 3.0 L* 3.1 L Chloride 96 L 97 L Carbon Dioxide 27 28 Anion Gap 15 14 BUN 46 H 49 H Creatinine 4.04 H 4.07 H Est GFR ( Amer) 13 L 13 L Est GFR (Non-Af Amer) 11 L 11 L Glucose 137 H 118 H Calcium 9.0 9.3 07/08/17 14:31 WBC 17.6 H RBC 3.15 L Hgb 8.2 L Hct 27.3 L MCV 87 MCH 26.0 L MCHC 30.0 L RDW 19.5 H Plt Count 353 Seg Neutrophils % Lymphocytes % Monocytes % Eosinophils % Basophils % Absolute Neutrophils Absolute Lymphocytes Absolute Monocytes Absolute Eosinophils Absolute Basophils Sodium Potassium Chloride Carbon Dioxide Anion Gap BUN Creatinine Est GFR ( Amer) Est GFR (Non-Af Amer) Glucose Calcium 07/07/17 07/07/17 17:38 23:12 Troponin I 0.043 0.049 Impressions: Chest X-Ray 07/07/17 00:00 IMPRESSION: LOW LUNG VOLUMES WITH FAINT BASILAR ATELECTASIS/ INFILTRATE AND SMALL PLEURAL EFFUSIONS. CARDIOMEGALY. Abdomen X-Ray 07/07/17 10:29 IMPRESSION: As above. Diminished aeration particularly in the left lower lobe. Abdomen/Pelvis CT 07/07/17 14:27 IMPRESSION: There is an apparent lytic process involving the superior endplate of the T12 vertebra and inferior endplate of the T11 vertebra which was not present on the previous study. The appearance would suggest a discitis. MRI may be of value for further evaluation. Other findings as noted above Assessment & Plan - Diagnosis (1) Hypokalemia Plan: give one 20mEQ potassium rider. Scheduled daily 20mEQ potassium riders for two days. Will consider making k-riders bid. Most likely lower due to diarrhea (2) C. difficile colitis Is this a current diagnosis for this admission?: Yes Plan: currently being treated with oral vanc. (3) Abdominal pain Qualifiers: Abdominal location: generalized Qualified Code(s): R10.84 - Generalized abdominal pain Plan: most likely due to diarrhea, previous work up in March was negative. (4) Anemia in chronic kidney disease Plan: will give epogen with dialysis and get iron studies to see if she needs iron. (5) End stage renal disease on dialysis Plan: no current indication for dialysis today. Potassium is not a concern. She does not appear to be fluid overloaded. Will order dialysis for Wednesday. (6) Essential hypertension Plan: bp looks to be well controlled.
[2017-07-08] MEDS: ATORVASTATIN CALCIUM 20 MG TABLET PO SCH (23:28)
[2017-07-09] MEDS: VANCOMYCIN HCL INJ 500 MG VIAL PO SCH ×4 (00:58→18:00)
[2017-07-09] MEDS: PIPERACILLIN SODIUM/TAZOBACTAM 2.25 GM in NORMAL SALINE 50 ML IV SCH ×4 (00:58→21:42)
[2017-07-09] MEDS ORDERED: EPOETIN ALFA INJ 20000 UNIT/1 ML VIAL (RENAL) IV PRN (05:00)
[2017-07-09] MEDS: HEPARIN SOD (PORCINE) 5,000 UNIT/ML 1 ML SYRINGE SUBCUT SCH ×3 (06:05→21:43)
[2017-07-09 07:12] LABS: ABSOLUTE BASOPHILS # (AUTO) 0.1 10^3/uL (0.0-0.2); ABSOLUTE EOSINOPHILS # (AUTO) 0.2 10^3/uL (0.0-0.6); ABSOLUTE LYMPHOCYTES (AUTO) 0.5 10^3/uL (0.5-4.7); ABSOLUTE MONOCYTES (AUTO) 0.6 10^3/uL (0.1-1.4); ABSOLUTE NEUT (AUTO) 9.1 10^3/uL (1.7-8.2); BASOPHILS % (AUTO) 0.5 % (0-2); HEMATOCRIT 27.8 % (36.0-47.0); HEMOGLOBIN 8.5 g/dL (12.0-15.5); LYMPHOCYTES % (AUTO) 5.1 % (13-45); MEAN CORPUSCULAR HEMOGLOBIN 26.2 pg (27.0-33.4); MEAN CORPUSCULAR HGB CONC 30.6 g/dL (32.0-36.0); MEAN CORPUSCULAR VOLUME 86 fl (80-97); PLATELET COUNT 328 10^3/uL (150-450); RED BLOOD COUNT 3.25 10^6/uL (3.72-5.28); RED CELL DISTRIBUTION WIDTH 19.3 % (11.5-14.0); SEGMENTED NEUTROPHILS % (AUTO) 86.4 % (42-78); TOTAL CELLS COUNTED % (AUTO) 100 %; WHITE BLOOD COUNT 10.5 10^3/uL (4.0-10.5)
[2017-07-09 08:34] LABS: IRON(TIBC) 37.7 ug/dL (37-170)
[2017-07-09] MEDS ORDERED: POTASSIUM CHLORIDE 20 MEQ/50 ML RTU IV SCH ×2 (10:00)
[2017-07-09] MEDS ORDERED: POTASSI CL 20 MEQ/50 ML RIDER 20 MEQ/50 ML RTUPB IV SCH (10:00)
[2017-07-09] MEDS: CALCIUM ACETATE 667 MG CAPSULE PO SCH (10:10)
[2017-07-09] MEDS: CINACALCET HCL 30 MG TABLET PO SCH (10:10)
[2017-07-09] MEDS: LOSARTAN POTASSIUM 50 MG TABLET PO SCH (10:10)
[2017-07-09] MEDS: CYPROHEPTADINE HCL 4 MG TABLET PO SCH (10:10)
[2017-07-09 12:59] LABS: ANION GAP 18 (5-19); BLOOD UREA NITROGEN 54 mg/dL (7-20); CALCIUM 9.1 mg/dL (8.4-10.2); CARBON DIOXIDE 21 mmol/L (22-30); CHLORIDE 97 mmol/L (98-107); GLUCOSE 109 mg/dL (75-110); POTASSIUM 3.7 mmol/L (3.6-5.0); SODIUM 136.2 mmol/L (137-145)
--- NOTE | 2017-07-09 15:04 | PDOC PROGRESS REPORT ---
Subjective Progress Note for:: 07/09/17 Subjective:: Seen on HD today. Overall feeling better . Been diagnosed to have C.Diff colitis and onPO Vanc.Denies any chest pains dyspnea, fever or chills. Reason For Visit: C DIFF COLITIS,SACRAL WOUND,CHRONIC KIDNEY DISEASE Physical Exam Vital Signs: Temp Pulse Resp BP Pulse Ox 97.5 F 107 H 16 141/69 H 100 07/09/17 11:43 07/09/17 11:43 07/09/17 11:43 07/09/17 11:43 07/09/17 11:43 Intake & Output 07/08/17 07/09/17 07/10/17 06:59 06:59 06:59 Intake Total 220 532 445 Output Total 0 Balance 220 532 445 Weight 65.4 kg 73 kg General appearance: PRESENT: no acute distress Respiratory exam: PRESENT: clear to auscultation rose marie. ABSENT: crackles Cardiovascular exam: PRESENT: RRR, +S1, +S2 GI/Abdominal exam: PRESENT: normal bowel sounds, soft, tenderness. ABSENT: organomegaly Extremities exam: ABSENT: pedal edema Neurological exam: PRESENT: alert, awake, oriented to person, oriented to place Skin exam: PRESENT: dry. ABSENT: erythema, mottled Results Laboratory Results: 07/09/17 06:16 07/09/17 12:25 07/08/17 07/08/17 07/09/17 14:24 14:31 06:16 WBC 17.6 H RBC 3.15 L Hgb 8.2 L Hct 27.3 L MCV 87 MCH 26.0 L MCHC 30.0 L RDW 19.5 H Plt Count 353 Seg Neutrophils % Lymphocytes % Monocytes % Eosinophils % Basophils % Absolute Neutrophils Absolute Lymphocytes Absolute Monocytes Absolute Eosinophils Absolute Basophils Sodium 138.9 Cancelled Potassium 3.1 L Cancelled Chloride 97 L Cancelled Carbon Dioxide 28 Cancelled Anion Gap 14 Cancelled BUN 49 H Cancelled Creatinine 4.07 H Cancelled Est GFR ( Amer) 13 L Cancelled Est GFR (Non-Af Amer) 11 L Cancelled Glucose 118 H Cancelled Calcium 9.3 Cancelled Iron 37.7 TIBC 169 L % Saturation 22 Ferritin 1620.00 H 07/09/17 07/09/17 07/09/17 06:16 11:10 12:25 WBC 10.5 RBC 3.25 L Hgb 8.5 L Hct 27.8 L MCV 86 MCH 26.2 L MCHC 30.6 L RDW 19.3 H Plt Count 328 Seg Neutrophils % 86.4 H Lymphocytes % 5.1 L Monocytes % 6.0 Eosinophils % 2.0 Basophils % 0.5 Absolute Neutrophils 9.1 H Absolute Lymphocytes 0.5 Absolute Monocytes 0.6 Absolute Eosinophils 0.2 Absolute Basophils 0.1 Sodium Cancelled 136.2 L Potassium Cancelled 3.7 Chloride Cancelled 97 L Carbon Dioxide Cancelled 21 L Anion Gap Cancelled 18 BUN Cancelled 54 H Creatinine Cancelled 3.97 H Est GFR ( Amer) Cancelled 13 L Est GFR (Non-Af Amer) Cancelled 11 L Glucose Cancelled 109 Calcium Cancelled 9.1 Iron TIBC % Saturation Ferritin 07/07/17 07/07/17 17:38 23:12 Troponin I 0.043 0.049 Impressions: Chest X-Ray 07/07/17 00:00 IMPRESSION: LOW LUNG VOLUMES WITH FAINT BASILAR ATELECTASIS/ INFILTRATE AND SMALL PLEURAL EFFUSIONS. CARDIOMEGALY. Abdomen X-Ray 07/07/17 10:29 IMPRESSION: As above. Diminished aeration particularly in the left lower lobe. Abdomen/Pelvis CT 07/07/17 14:27 IMPRESSION: There is an apparent lytic process involving the superior endplate of the T12 vertebra and inferior endplate of the T11 vertebra which was not present on the previous study. The appearance would suggest a discitis. MRI may be of value for further evaluation. Other findings as noted above Assessment & Plan - Diagnosis (1) End stage renal disease on dialysis Plan: Seen on HD which is being supervised to ensure a safe and smooth peocedure. VS are stable Undergoing HD without any issues. Plan to remove minimal to 0 fluid . Orders were discussed with the treating RN. (2) C. difficile colitis Is this a current diagnosis for this admission?: Yes Plan: On po Vanc. As per hospitalist. (3) Hypokalemia Plan: On replacements and much improved.Monitor. (4) Anemia in chronic kidney disease Plan: Adjust EPO. (5) Diabetes mellitus type 2 in obese Plan: Adv tight control.
[2017-07-09] MEDS ORDERED: VANCOMYCIN HCL 750 MG in DEXTROSE 5%-WATER 250 ML IV SCH (18:00)
--- NOTE | 2017-07-09 19:42 | PDOC PROGRESS REPORT ---
Subjective Progress Note for:: 07/09/17 Subjective:: No overnight events. Had no BM's overnight but 2 this AM. Abdominal pain decreased. Denies fevers or chills. Had dialysis today. Reason For Visit: C DIFF COLITIS,SACRAL WOUND,CHRONIC KIDNEY DISEASE Physical Exam Vital Signs: Temp Pulse Resp BP Pulse Ox 97.5 F 107 H 16 141/69 H 100 07/09/17 11:43 07/09/17 11:43 07/09/17 11:43 07/09/17 11:43 07/09/17 11:43 Intake & Output 07/08/17 07/09/17 07/10/17 06:59 06:59 06:59 Intake Total 220 532 445 Output Total 0 Balance 220 532 445 Weight 65.4 kg 73 kg General appearance: PRESENT: obese, other - Sleeping in bed Mouth exam: PRESENT: moist Respiratory exam: PRESENT: clear to auscultation rose marie. ABSENT: unlabored Cardiovascular exam: PRESENT: irregular rhythm. ABSENT: tachycardia GI/Abdominal exam: PRESENT: soft, tenderness. ABSENT: guarding Neurological exam: PRESENT: awake - Moving all extremities. Answering some questions. Results Laboratory Results: 07/09/17 06:16 07/09/17 12:25 07/09/17 07/09/17 07/09/17 06:16 06:16 11:10 WBC 10.5 RBC 3.25 L Hgb 8.5 L Hct 27.8 L MCV 86 MCH 26.2 L MCHC 30.6 L RDW 19.3 H Plt Count 328 Seg Neutrophils % 86.4 H Lymphocytes % 5.1 L Monocytes % 6.0 Eosinophils % 2.0 Basophils % 0.5 Absolute Neutrophils 9.1 H Absolute Lymphocytes 0.5 Absolute Monocytes 0.6 Absolute Eosinophils 0.2 Absolute Basophils 0.1 Sodium Cancelled Cancelled Potassium Cancelled Cancelled Chloride Cancelled Cancelled Carbon Dioxide Cancelled Cancelled Anion Gap Cancelled Cancelled BUN Cancelled Cancelled Creatinine Cancelled Cancelled Est GFR ( Amer) Cancelled Cancelled Est GFR (Non-Af Amer) Cancelled Cancelled Glucose Cancelled Cancelled Calcium Cancelled Cancelled Iron 37.7 TIBC 169 L % Saturation 22 Ferritin 1620.00 H 07/09/17 12:25 WBC RBC Hgb Hct MCV MCH MCHC RDW Plt Count Seg Neutrophils % Lymphocytes % Monocytes % Eosinophils % Basophils % Absolute Neutrophils Absolute Lymphocytes Absolute Monocytes Absolute Eosinophils Absolute Basophils Sodium 136.2 L Potassium 3.7 Chloride 97 L Carbon Dioxide 21 L Anion Gap 18 BUN 54 H Creatinine 3.97 H Est GFR ( Amer) 13 L Est GFR (Non-Af Amer) 11 L Glucose 109 Calcium 9.1 Iron TIBC % Saturation Ferritin 07/07/17 07/07/17 17:38 23:12 Troponin I 0.043 0.049 Impressions: Chest X-Ray 07/07/17 00:00 IMPRESSION: LOW LUNG VOLUMES WITH FAINT BASILAR ATELECTASIS/ INFILTRATE AND SMALL PLEURAL EFFUSIONS. CARDIOMEGALY. Abdomen X-Ray 07/07/17 10:29 IMPRESSION: As above. Diminished aeration particularly in the left lower lobe. Abdomen/Pelvis CT 07/07/17 14:27 IMPRESSION: There is an apparent lytic process involving the superior endplate of the T12 vertebra and inferior endplate of the T11 vertebra which was not present on the previous study. The appearance would suggest a discitis. MRI may be of value for further evaluation. Other findings as noted above Assessment & Plan - Diagnosis (1) C. difficile colitis Is this a current diagnosis for this admission?: Yes Plan: Stool sample today positive for C. diff. No history of CDI previously. Patient does get dialysis which puts her at increased risk for community acquired CDI. No recent antibiotic use. - Improving as of 07/09/17 - Received PO Vanc 500mg in ED at admission, continue PO Vanc 125 q6 hours for 10-14 days - If diarrhea worsens or symptoms do no improve, will start PO/IV Flagyl - Enteric precautions ordered - CT Reviewed and no evidence of complications secondary to CDI 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 Is this a current diagnosis for this admission?: Yes Plan: Current on HD MWF, missed dialysis today. Not overly hypervolemic on exam. - Consulted Nephrology, appreciate recs - Received dialysis today, Sunday 07/09. Tolerated well per renal note (3) Sacral decubitus ulcer, stage II Is this a current diagnosis for this admission?: Yes (4) Discitis of lumbar region Is this a current diagnosis for this admission?: Yes (5) Bacteremia Is this a current diagnosis for this admission?: Yes Plan: Blood cultures positive for GPC in clusters in 2/2 bottles - Will continue renally dose Vanc/ Zosyn - Follow Sensitivities and speciation and tailor antibiotics --> pending - Repeated blood cultures on 07/09 to document clearance - Time Time Spent with patient: Less than 15 minutes
[2017-07-09] MEDS: ATORVASTATIN CALCIUM 20 MG TABLET PO SCH (21:41)
[2017-07-09] MEDS: ACETAMINOPHEN 325 MG TABLET PO PRN (21:42)
[2017-07-10] MEDS: HEPARIN SOD (PORCINE) 5,000 UNIT/ML 1 ML SYRINGE SUBCUT SCH ×3 (06:29→23:15)
[2017-07-10] MEDS: PIPERACILLIN SODIUM/TAZOBACTAM 2.25 GM in NORMAL SALINE 50 ML IV SCH ×3 (06:29→23:06)
[2017-07-10] MEDS: VANCOMYCIN HCL INJ 500 MG VIAL PO SCH ×5 (06:29→23:06)
[2017-07-10 06:38] LABS: MEAN CORPUSCULAR HEMOGLOBIN 26.3 pg (27.0-33.4); MEAN CORPUSCULAR HGB CONC 30.5 g/dL (32.0-36.0); MEAN CORPUSCULAR VOLUME 86 fl (80-97); PLATELET COUNT 327 10^3/uL (150-450); RED CELL DISTRIBUTION WIDTH 18.9 % (11.5-14.0); WHITE BLOOD COUNT 10.9 10^3/uL (4.0-10.5)
[2017-07-10 06:44] LABS: HEMOGLOBIN 7.6 g/dL (12.0-15.5)
[2017-07-10 07:02] LABS: ANION GAP 13 (5-19); CALCIUM 8.8 mg/dL (8.4-10.2); CARBON DIOXIDE 29 mmol/L (22-30); CHLORIDE 99 mmol/L (98-107); GLUCOSE 122 mg/dL (75-110); SODIUM 140.5 mmol/L (137-145)
[2017-07-10 07:03] LABS: ABSOLUTE LYMPHOCYTES# (MANUAL) 0.5 10^3/uL (0.5-4.7); ABSOLUTE MONOCYTES # (MANUAL) 0.1 10^3/uL (0.1-1.4); ABSOLUTE NEUTROPHILS# (MANUAL) 9.9 10^3/uL (1.7-8.2); BAND NEUTROPHILS % (MANUAL) 1 % (3-5); BASOPHILS % (MANUAL) 0 % (0-2); EOSINOPHILS % (MANUAL) 3 % (0-6); LYMPHOCYTES % (MANUAL) 5 % (13-45); MONOCYTES % (MANUAL) 1 % (3-13); SEGMENTED NEUTROPHILS % (MAN) 90 % (42-78); TOTAL CELLS COUNTED 100
[2017-07-10 07:07] LABS: ANISOCYTOSIS 1+; HYPERSEGMENTED NEUTROPHILS PRESENT; HYPOCHROMASIA 3+; PLATELET COMMENT ADEQUATE; PLATELET GIANT PRESENT; PLATELET LARGE PRESENT; POLYCHROMASIA SLIGHT
[2017-07-10 07:23] LABS: BLOOD UREA NITROGEN 19 mg/dL (7-20)
[2017-07-10 07:25] LABS: POTASSIUM 2.8 mmol/L (3.6-5.0)
[2017-07-10] MEDS ORDERED: POTASSIUM CHLORIDE 20 MEQ/50 ML RTU IV SCH (10:00)
[2017-07-10] MEDS: LOSARTAN POTASSIUM 50 MG TABLET PO SCH (10:06)
[2017-07-10] MEDS: CALCIUM ACETATE 667 MG CAPSULE PO SCH (10:06)
[2017-07-10] MEDS: CINACALCET HCL 30 MG TABLET PO SCH (10:08)
[2017-07-10] MEDS: CYPROHEPTADINE HCL 4 MG TABLET PO SCH (10:08)
--- NOTE | 2017-07-10 12:35 | PDOC PROGRESS REPORT ---
Subjective Progress Note for:: 07/10/17 Subjective:: No overnight events. Doing better. More awake and interactive. Decreased BM's count. Abdominal pain persists particularly with movement however improved since admission. Denies fevers or chills. Daughter at bedside. Reason For Visit: C DIFF COLITIS,SACRAL WOUND,CHRONIC KIDNEY DISEASE Physical Exam Vital Signs: Temp Pulse Resp BP Pulse Ox 98.7 F 50 L 19 122/44 L 99 07/10/17 07:16 07/10/17 07:16 07/10/17 07:16 07/10/17 07:16 07/10/17 07:16 Intake & Output 07/09/17 07/10/17 07/11/17 06:59 06:59 06:59 Intake Total 532 1015 Output Total 700 Balance 532 315 Weight 73 kg 73.2 kg General appearance: PRESENT: no acute distress Head exam: PRESENT: normocephalic Mouth exam: PRESENT: moist Respiratory exam: PRESENT: decreased breath sounds, unlabored Cardiovascular exam: PRESENT: bradycardia, irregular rhythm GI/Abdominal exam: PRESENT: tenderness - Decreased compared to 07/09 exam. ABSENT: guarding Neurological exam: PRESENT: alert, awake - Answering questions appropriately Results Laboratory Results: 07/10/17 05:17 07/10/17 05:17 07/09/17 07/10/17 07/10/17 12:25 05:17 05:17 WBC 10.9 H RBC 2.90 L Hgb 7.6 L Hct 25.0 L MCV 86 MCH 26.3 L MCHC 30.5 L RDW 18.9 H Plt Count 327 Seg Neutrophils % Not Reportable Lymphocytes % Not Reportable Monocytes % Not Reportable Eosinophils % Not Reportable Basophils % Not Reportable Absolute Neutrophils Not Reportable Absolute Lymphocytes Not Reportable Absolute Monocytes Not Reportable Absolute Eosinophils Not Reportable Absolute Basophils Not Reportable Sodium 136.2 L 140.5 Potassium 3.7 2.8 L* Chloride 97 L 99 Carbon Dioxide 21 L 29 Anion Gap 18 13 BUN 54 H 19 D Creatinine 3.97 H 1.99 H Est GFR ( Amer) 13 L 29 L Est GFR (Non-Af Amer) 11 L 24 L Glucose 109 122 H Calcium 9.1 8.8 Blood Type Antibody Screen 07/10/17 08:25 WBC RBC Hgb Hct MCV MCH MCHC RDW Plt Count Seg Neutrophils % Lymphocytes % Monocytes % Eosinophils % Basophils % Absolute Neutrophils Absolute Lymphocytes Absolute Monocytes Absolute Eosinophils Absolute Basophils Sodium Potassium Chloride Carbon Dioxide Anion Gap BUN Creatinine Est GFR ( Amer) Est GFR (Non-Af Amer) Glucose Calcium Blood Type O POSITIVE Antibody Screen NEGATIVE 07/07/17 07/07/17 17:38 23:12 Troponin I 0.043 0.049 Impressions: Chest X-Ray 07/07/17 00:00 IMPRESSION: LOW LUNG VOLUMES WITH FAINT BASILAR ATELECTASIS/ INFILTRATE AND SMALL PLEURAL EFFUSIONS. CARDIOMEGALY. Abdomen X-Ray 07/07/17 10:29 IMPRESSION: As above. Diminished aeration particularly in the left lower lobe. Abdomen/Pelvis CT 07/07/17 14:27 IMPRESSION: There is an apparent lytic process involving the superior endplate of the T12 vertebra and inferior endplate of the T11 vertebra which was not present on the previous study. The appearance would suggest a discitis. MRI may be of value for further evaluation. Other findings as noted above Assessment & Plan - Diagnosis (1) C. difficile colitis Is this a current diagnosis for this admission?: Yes Plan: Stool sample today positive for C. diff. No history of CDI previously. Patient does get dialysis which puts her at increased risk for community acquired CDI. No recent antibiotic use. - Improving as of 07/10/17, continue PO Vanc 125 q6 hours for 10-14 days - Stool culture negative - If diarrhea worsens or symptoms do no improve, will start PO/IV Flagyl --> unlikely this will be needed - Enteric precautions ordered - Admission CT AP Reviewed and no evidence of complications secondary to CDI 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 Is this a current diagnosis for this admission?: Yes (3) Sacral decubitus ulcer, stage II Is this a current diagnosis for this admission?: Yes Plan: Continues to worsen despite home care with purulent drainage - Seen by wound team, continue daily dressing (4) Discitis of lumbar region Is this a current diagnosis for this admission?: Yes (5) Bacteremia Is this a current diagnosis for this admission?: Yes Plan: Blood cultures positive for GPC in clusters in 2/2 bottles - Will continue renally dose Vanc/ Zosyn - Discussed with micro lab on 07/10, sensitivities and speciation still not back , will tailor antibiotics based on results - Repeated blood cultures on 07/09 to document clearance - Will need 14 day course given bacteremia (6) Encounter for hospice care Is this a current diagnosis for this admission?: Yes Plan: Long discussion with patient's daughter who her primary career development engineer. Given multiple co-morbidities including CKD, cardiac problems, and current infections , patient's mortality risk is high. Would be a good idea to discuss with hospice team to learn about benefits of hospice and resources that could be provided. - Agreeable to meet with hospice team - In terms of dispo for current admission, agreeable with SNF placement for post hospital care. - Time Time Spent with patient: 15-24 minutes Anticipated discharge: SNF Within: within 48 hours - Will need placement in SNF for IV antibiotics and deconditioning
[2017-07-10] MEDS: ATORVASTATIN CALCIUM 20 MG TABLET PO SCH (23:06)
[2017-07-10] MEDS: ACETAMINOPHEN 325 MG TABLET PO PRN (23:14)
[2017-07-11 05:29] LABS: HEMATOCRIT 25.8 % (36.0-47.0); MEAN CORPUSCULAR HEMOGLOBIN 26.8 pg (27.0-33.4); MEAN CORPUSCULAR VOLUME 87 fl (80-97); PLATELET COUNT 286 10^3/uL (150-450); RED BLOOD COUNT 2.98 10^6/uL (3.72-5.28); RED CELL DISTRIBUTION WIDTH 19.4 % (11.5-14.0); WHITE BLOOD COUNT 9.9 10^3/uL (4.0-10.5)
[2017-07-11 05:54] LABS: ANION GAP 10 (5-19); BLOOD UREA NITROGEN 27 mg/dL (7-20); CALCIUM 9.2 mg/dL (8.4-10.2); CARBON DIOXIDE 30 mmol/L (22-30); CHLORIDE 96 mmol/L (98-107); GLUCOSE 143 mg/dL (75-110); SODIUM 135.7 mmol/L (137-145)
[2017-07-11 06:09] LABS: POTASSIUM 2.8 mmol/L (3.6-5.0)
[2017-07-11] MEDS ORDERED: POTASSI CL 20 MEQ/50 ML RIDER 20 MEQ/50 ML RTUPB IV SCH (06:19)
[2017-07-11] MEDS: PIPERACILLIN SODIUM/TAZOBACTAM 2.25 GM in NORMAL SALINE 50 ML IV SCH ×3 (06:46→21:59)
[2017-07-11] MEDS: VANCOMYCIN HCL INJ 500 MG VIAL PO SCH ×3 (06:46→19:45)
[2017-07-11] MEDS: HEPARIN SOD (PORCINE) 5,000 UNIT/ML 1 ML SYRINGE SUBCUT SCH ×3 (07:04→22:03)
[2017-07-11] MEDS ORDERED: POTASSIUM CHLORIDE 10 MEQ TABLET.SA PO ONE ×2 (08:30→12:04)
[2017-07-11] MEDS: CYPROHEPTADINE HCL 4 MG TABLET PO SCH (12:29)
[2017-07-11] MEDS: CALCIUM ACETATE 667 MG CAPSULE PO SCH (12:29)
[2017-07-11] MEDS: LOSARTAN POTASSIUM 50 MG TABLET PO SCH (12:29)
[2017-07-11] MEDS: CINACALCET HCL 30 MG TABLET PO SCH (12:29)
[2017-07-11] MEDS ORDERED: POTASSIUM CHLORIDE 20 MEQ/15 ML UDCUP PO ONE (12:45)
--- NOTE | 2017-07-11 15:02 | PDOC PROGRESS REPORT ---
Subjective Progress Note for:: 07/11/17 Subjective:: No overnight events. Abdominal pain continues to improve. Able to sit up in bed. Diarrhea has stopped. No NV. Denies fevers or chills, CP, SOB. Two daughters at bedside. Actively drinking ensure at time of my evaluation Reason For Visit: C DIFF COLITIS,SACRAL WOUND,CHRONIC KIDNEY DISEASE Physical Exam Vital Signs: Temp Pulse Resp BP Pulse Ox 98.4 F 97 16 127/56 H 100 07/11/17 08:11 07/11/17 08:11 07/11/17 08:11 07/11/17 08:11 07/11/17 08:11 Intake & Output 07/10/17 07/11/17 07/12/17 06:59 06:59 06:59 Intake Total 1015 490 Output Total 700 0 Balance 315 490 Weight 73.2 kg 73 kg General appearance: PRESENT: no acute distress, well-developed, well-nourished, other - More interactive, pleasant Head exam: PRESENT: normocephalic Mouth exam: PRESENT: moist Respiratory exam: PRESENT: clear to auscultation rose marie, unlabored Cardiovascular exam: PRESENT: RRR GI/Abdominal exam: PRESENT: normal bowel sounds, soft. ABSENT: tenderness Neurological exam: PRESENT: alert, awake, other - Answering questions appropriately Results Laboratory Results: 07/11/17 04:57 07/11/17 04:57 07/11/17 07/11/17 07/11/17 04:57 04:57 04:57 WBC 9.9 RBC 2.98 L Hgb 8.0 L Hct 25.8 L MCV 87 MCH 26.8 L MCHC 31.0 L RDW 19.4 H Plt Count 286 Sodium 135.7 L Potassium 2.8 L* Chloride 96 L Carbon Dioxide 30 Anion Gap 10 BUN 27 H Creatinine 2.51 H Est GFR ( Amer) 22 L Est GFR (Non-Af Amer) 18 L Glucose 143 H Calcium 9.2 Magnesium 1.8 07/07/17 18:00 Blood Blood Culture - Final Staphylococcus Aureus 07/07/17 17:38 Blood Blood Culture - Final Staphylococcus Aureus 07/07/17 07/07/17 17:38 23:12 Troponin I 0.043 0.049 Impressions: Chest X-Ray 07/07/17 00:00 IMPRESSION: LOW LUNG VOLUMES WITH FAINT BASILAR ATELECTASIS/ INFILTRATE AND SMALL PLEURAL EFFUSIONS. CARDIOMEGALY. Abdomen X-Ray 07/07/17 10:29 IMPRESSION: As above. Diminished aeration particularly in the left lower lobe. Abdomen/Pelvis CT 07/07/17 14:27 IMPRESSION: There is an apparent lytic process involving the superior endplate of the T12 vertebra and inferior endplate of the T11 vertebra which was not present on the previous study. The appearance would suggest a discitis. MRI may be of value for further evaluation. Other findings as noted above Assessment & Plan - Diagnosis (1) C. difficile colitis Is this a current diagnosis for this admission?: Yes Plan: Stool sample today positive for C. diff. No history of CDI previously. Patient does get dialysis which puts her at increased risk for community acquired CDI. No recent antibiotic use. Admission CT AP Reviewed and no evidence of complications secondary to CDI - Improving as of 07/11/17, continue PO Vanc 125 q6 hours for 10 day course - Stool culture negative - Continue enteric precautions 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 Is this a current diagnosis for this admission?: Yes Plan: Current on HD MWF, missed dialysis today. Not overly hypervolemic on exam. - Consulted Nephrology, appreciate recs - Received dialysis on Sunday 07/09. Next Wednesday, 07/12 (3) Sacral decubitus ulcer, stage II Is this a current diagnosis for this admission?: Yes (4) Discitis of lumbar region Is this a current diagnosis for this admission?: Yes (5) Bacteremia Is this a current diagnosis for this admission?: Yes Plan: Blood cultures positive for GPC in clusters in 2/2 bottles - Blood cultures 07/07: MSSA, repeat on 07/09: GPC, ordered new peripheral cx on - Continue renally dose Zosyn, likely can narrow; discontinued Vanc on 07/11 - Repeated blood cultures on 07/11 to document clearance - Will need 14 day course given bacteremia (6) Encounter for hospice care Is this a current diagnosis for this admission?: Yes Plan: Long discussion with patient's daughter who her primary intensive care medicine specialist. Given multiple co-morbidities including CKD, cardiac problems, and current infections , patient's mortality risk is high. Would be a good idea to discuss with hospice team to learn about benefits of hospice and resources that could be provided. - Agreeable to meet with hospice team, will come on 07/11 to discuss - In terms of dispo for current admission, agreeable with SNF placement for post hospital care. - Time Time Spent with patient: Less than 15 minutes Anticipated discharge: SNF - Plan Summary Plan Summary: Clinically improved, awaiting clearance of blood cultures
[2017-07-11] MEDS: POTASSIUM CHLORIDE 10 MEQ TABLET.SA PO SCH (19:45)
[2017-07-11] MEDS: ATORVASTATIN CALCIUM 20 MG TABLET PO SCH (22:03)
[2017-07-12] MEDS: VANCOMYCIN HCL INJ 500 MG VIAL PO SCH ×5 (00:01→23:42)
[2017-07-12] MEDS: ACETAMINOPHEN 325 MG TABLET PO PRN ×2 (01:17→05:32)
[2017-07-12] MEDS: PIPERACILLIN SODIUM/TAZOBACTAM 2.25 GM in NORMAL SALINE 50 ML IV SCH (05:28)
[2017-07-12] MEDS: HEPARIN SOD (PORCINE) 5,000 UNIT/ML 1 ML SYRINGE SUBCUT SCH ×3 (05:28→23:42)
[2017-07-12 06:04] LABS: ABSOLUTE EOSINOPHILS # (AUTO) 0.3 10^3/uL (0.0-0.6); ABSOLUTE LYMPHOCYTES (AUTO) 0.9 10^3/uL (0.5-4.7); ABSOLUTE MONOCYTES (AUTO) 0.6 10^3/uL (0.1-1.4); ABSOLUTE NEUT (AUTO) 8.2 10^3/uL (1.7-8.2); BASOPHILS % (AUTO) 0.5 % (0-2); EOSINOPHILS % (AUTO) 2.7 % (0-6); HEMATOCRIT 22.6 % (36.0-47.0); LYMPHOCYTES % (AUTO) 8.8 % (13-45); MEAN CORPUSCULAR VOLUME 87 fl (80-97); MONOCYTES % (AUTO) 5.8 % (3-13); PLATELET COUNT 284 10^3/uL (150-450); RED CELL DISTRIBUTION WIDTH 18.9 % (11.5-14.0); SEGMENTED NEUTROPHILS % (AUTO) 82.2 % (42-78); TOTAL CELLS COUNTED % (AUTO) 100 %
[2017-07-12 06:37] LABS: ANION GAP 11 (5-19); BLOOD UREA NITROGEN 32 mg/dL (7-20); CALCIUM 8.9 mg/dL (8.4-10.2); CARBON DIOXIDE 26 mmol/L (22-30); CHLORIDE 96 mmol/L (98-107); GLUCOSE 148 mg/dL (75-110); POTASSIUM 3.9 mmol/L (3.6-5.0); SODIUM 132.7 mmol/L (137-145)
[2017-07-12] MEDS ORDERED: EPOETIN ALFA INJ 20000 UNIT/1 ML VIAL (RENAL) IV PRN (07:58)
[2017-07-12] MEDS ORDERED: CIPROFLOXACIN 400 MG/D5W RTU 400 MG/200 ML RTUPB IV SCH (10:00)
[2017-07-12] MEDS: CINACALCET HCL 30 MG TABLET PO SCH (12:38)
[2017-07-12] MEDS: CALCIUM ACETATE 667 MG CAPSULE PO SCH (12:38)
[2017-07-12] MEDS: POTASSIUM CHLORIDE 10 MEQ TABLET.SA PO SCH ×2 (12:38→18:51)
[2017-07-12] MEDS: LOSARTAN POTASSIUM 50 MG TABLET PO SCH (12:38)
[2017-07-12] MEDS: CYPROHEPTADINE HCL 4 MG TABLET PO SCH (12:39)
--- NOTE | 2017-07-12 12:43 | PDOC PROGRESS REPORT ---
Subjective Progress Note for:: 07/12/17 Reason For Visit: This patient was seen today on Dialysis.Undergoing dialysis without any issues. Diarrhea is markedly better. Now growing MSSA in blood and antibiotics modified . Denies any abdominal pains, fever or chills. Physical Exam Vital Signs: Temp Pulse Resp BP Pulse Ox 97.3 F 89 16 138/71 H 100 07/12/17 10:41 07/12/17 10:41 07/12/17 10:41 07/12/17 10:41 07/12/17 10:41 Intake & Output 07/11/17 07/12/17 07/13/17 06:59 06:59 06:59 Intake Total 490 840 600 Output Total 0 0 Balance 490 840 600 Weight 73 kg 90.9 kg General appearance: PRESENT: no acute distress Respiratory exam: PRESENT: clear to auscultation rose marie. ABSENT: crackles, rhonchi Cardiovascular exam: PRESENT: RRR, +S1, +S2 GI/Abdominal exam: PRESENT: normal bowel sounds, soft. ABSENT: organomegaly, tenderness Extremities exam: PRESENT: pedal edema Neurological exam: PRESENT: awake, oriented to person, oriented to place Skin exam: ABSENT: cyanosis, erythema, mottled Results Laboratory Results: 07/12/17 05:02 07/12/17 05:02 07/10/17 07/11/17 07/12/17 08:25 15:24 05:02 WBC 10.0 RBC 2.60 L Hgb 7.0 L Hct 22.6 L MCV 87 MCH 27.0 MCHC 31.0 L RDW 18.9 H Plt Count 284 Seg Neutrophils % 82.2 H Lymphocytes % 8.8 L Monocytes % 5.8 Eosinophils % 2.7 Basophils % 0.5 Absolute Neutrophils 8.2 Absolute Lymphocytes 0.9 Absolute Monocytes 0.6 Absolute Eosinophils 0.3 Absolute Basophils 0.0 Sodium Potassium 3.0 L* Chloride Carbon Dioxide Anion Gap BUN Creatinine Est GFR ( Amer) Est GFR (Non-Af Amer) Glucose Calcium Blood Type O POSITIVE Antibody Screen NEGATIVE 07/12/17 05:02 WBC RBC Hgb Hct MCV MCH MCHC RDW Plt Count Seg Neutrophils % Lymphocytes % Monocytes % Eosinophils % Basophils % Absolute Neutrophils Absolute Lymphocytes Absolute Monocytes Absolute Eosinophils Absolute Basophils Sodium 132.7 L Potassium 3.9 Chloride 96 L Carbon Dioxide 26 Anion Gap 11 BUN 32 H Creatinine 3.17 H Est GFR ( Amer) 17 L Est GFR (Non-Af Amer) 14 L Glucose 148 H Calcium 8.9 Blood Type Antibody Screen 07/07/17 07/07/17 17:38 23:12 Troponin I 0.043 0.049 Impressions: Chest X-Ray 07/07/17 00:00 IMPRESSION: LOW LUNG VOLUMES WITH FAINT BASILAR ATELECTASIS/ INFILTRATE AND SMALL PLEURAL EFFUSIONS. CARDIOMEGALY. Abdomen X-Ray 07/07/17 10:29 IMPRESSION: As above. Diminished aeration particularly in the left lower lobe. Abdomen/Pelvis CT 07/07/17 14:27 IMPRESSION: There is an apparent lytic process involving the superior endplate of the T12 vertebra and inferior endplate of the T11 vertebra which was not present on the previous study. The appearance would suggest a discitis. MRI may be of value for further evaluation. Other findings as noted above Assessment & Plan - Diagnosis (1) End stage renal disease on dialysis Plan: Seen on HD which is being supervised to ensure a safe and smooth procedure. VS are stable Undergoing HD without any issues. Plan to remove minimal fluid . Orders were discussed with the treating RN. (2) C. difficile colitis Is this a current diagnosis for this admission?: Yes Plan: On po Vanc. As per hospitalist. (3) Hypokalemia Plan: On replacements and much improved.Monitor. (4) Anemia in chronic kidney disease Plan: Ordered transfusion. Adjust EPO. (6) MSSA (methicillin susceptible Staphylococcus aureus) infection Plan: On antibiotics as per hospitalist. (7) Sacral decubitus ulcer, stage II Is this a current diagnosis for this admission?: Yes Plan: as per hospitalist.
--- NOTE | 2017-07-12 15:34 | PDOC PROGRESS REPORT ---
Subjective Progress Note for:: 07/12/17 Subjective:: No overnight events. Noted to have Hg 7 on AM labs. Off to dialysis this AM. Will receive 2U pRBC during HD. Per RN, doing well otherwise. Did refuse breakfast. Reason For Visit: C DIFF COLITIS,SACRAL WOUND,CHRONIC KIDNEY DISEASE Physical Exam Vital Signs: Temp Pulse Resp BP Pulse Ox 97.3 F 89 16 138/71 H 100 07/12/17 10:41 07/12/17 10:41 07/12/17 10:41 07/12/17 10:41 07/12/17 10:41 Intake & Output 07/11/17 07/12/17 07/13/17 06:59 06:59 06:59 Intake Total 490 840 600 Output Total 0 0 2900 Balance 490 840 -2300 Weight 73 kg 90.9 kg Additional comments: Unable to assess as patient was off floor for dialysis. Results Laboratory Results: 07/12/17 05:02 07/12/17 05:02 07/10/17 07/11/17 07/12/17 08:25 15:24 05:02 WBC 10.0 RBC 2.60 L Hgb 7.0 L Hct 22.6 L MCV 87 MCH 27.0 MCHC 31.0 L RDW 18.9 H Plt Count 284 Seg Neutrophils % 82.2 H Lymphocytes % 8.8 L Monocytes % 5.8 Eosinophils % 2.7 Basophils % 0.5 Absolute Neutrophils 8.2 Absolute Lymphocytes 0.9 Absolute Monocytes 0.6 Absolute Eosinophils 0.3 Absolute Basophils 0.0 Sodium Potassium 3.0 L* Chloride Carbon Dioxide Anion Gap BUN Creatinine Est GFR ( Amer) Est GFR (Non-Af Amer) Glucose Calcium Blood Type O POSITIVE Antibody Screen NEGATIVE 07/12/17 05:02 WBC RBC Hgb Hct MCV MCH MCHC RDW Plt Count Seg Neutrophils % Lymphocytes % Monocytes % Eosinophils % Basophils % Absolute Neutrophils Absolute Lymphocytes Absolute Monocytes Absolute Eosinophils Absolute Basophils Sodium 132.7 L Potassium 3.9 Chloride 96 L Carbon Dioxide 26 Anion Gap 11 BUN 32 H Creatinine 3.17 H Est GFR ( Amer) 17 L Est GFR (Non-Af Amer) 14 L Glucose 148 H Calcium 8.9 Blood Type Antibody Screen 07/07/17 07/07/17 17:38 23:12 Troponin I 0.043 0.049 Impressions: Chest X-Ray 07/07/17 00:00 IMPRESSION: LOW LUNG VOLUMES WITH FAINT BASILAR ATELECTASIS/ INFILTRATE AND SMALL PLEURAL EFFUSIONS. CARDIOMEGALY. Abdomen X-Ray 07/07/17 10:29 IMPRESSION: As above. Diminished aeration particularly in the left lower lobe. Abdomen/Pelvis CT 07/07/17 14:27 IMPRESSION: There is an apparent lytic process involving the superior endplate of the T12 vertebra and inferior endplate of the T11 vertebra which was not present on the previous study. The appearance would suggest a discitis. MRI may be of value for further evaluation. Other findings as noted above Assessment & Plan - Diagnosis (1) C. difficile colitis Is this a current diagnosis for this admission?: Yes Plan: Stool sample today positive for C. diff. No history of CDI previously. Patient does get dialysis which puts her at increased risk for community acquired CDI. No recent antibiotic use. Admission CT AP Reviewed and no evidence of complications secondary to CDI - Improving, continue PO Vanc 125 q6 hours for 10 day course, end date 07/18/17 - Stool culture negative - Continue enteric precautions 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 Is this a current diagnosis for this admission?: Yes Plan: Current on HD MWF, missed dialysis today. Not overly hypervolemic on exam. - Dialysis today on Wednesday, 07/12; next Wednesday if still in house - Given anemia, EPO increased today by nephrology - Consulted Nephrology, appreciate recs (3) Sacral decubitus ulcer, stage II Is this a current diagnosis for this admission?: Yes Plan: Continues to worsen despite home care with purulent drainage - Seen by wound team, continue daily dressing (4) Discitis of lumbar region Is this a current diagnosis for this admission?: Yes Plan: Noted on CT AP at admission. Plan was to obtain MRI however was not obtained at this time. Given clinical improvement, will not pursue additional testing. If new signs or symptoms for infection, would obtain MRI. - Infectious management per above (5) Bacteremia Is this a current diagnosis for this admission?: Yes Plan: MSSA Bacteremia: Blood cultures positive for GPC in clusters in 2/2 bottles - Blood cultures 07/07: MSSA, repeat on 07/09: GPC, ordered new peripheral cx on - Repeat blood cultures on 07/11: NGTD - Initially on renally dose Zosyn and Vanc - Discontinued Vanc on 07/11 and Zosyn on 07/12 - Started Nafcillin 1g q4 hours on 07/12 - Will need 14 day course given bacteremia (6) Encounter for hospice care Is this a current diagnosis for this admission?: Yes Plan: Long discussion with patient's daughter who her primary district manager primary care sales. Given multiple co-morbidities including CKD, cardiac problems, and current infections , patient's mortality risk is high. Would be a good idea to discuss with hospice team to learn about benefits of hospice and resources that could be provided. - Agreeable to meet with hospice team, will come on 07/11 to discuss - In terms of dispo for current admission, agreeable with SNF placement for post hospital care. - Time Time Spent with patient: 15-24 minutes Medications reviewed and adjusted accordingly: Yes Anticipated discharge: SNF Within: within 48 hours
[2017-07-12] MEDS ORDERED: NAFCILLIN SODIUM INJ 1 GM VIAL IV SCH (18:00)
[2017-07-12] MEDS: NAFCILLIN SODIUM 1 GM in DEXTROSE 5%-WATER 50 ML IV SCH ×2 (19:47→23:42)
[2017-07-12] MEDS: ATORVASTATIN CALCIUM 20 MG TABLET PO SCH (23:41)
[2017-07-13] MEDS: NAFCILLIN SODIUM 1 GM in DEXTROSE 5%-WATER 50 ML IV SCH ×6 (01:56→21:59)
[2017-07-13] MEDS: VANCOMYCIN HCL INJ 500 MG VIAL PO SCH ×3 (06:10→18:42)
[2017-07-13] MEDS: HEPARIN SOD (PORCINE) 5,000 UNIT/ML 1 ML SYRINGE SUBCUT SCH ×3 (06:15→22:00)
[2017-07-13] MEDS: POTASSIUM CHLORIDE 10 MEQ TABLET.SA PO SCH ×2 (09:46→18:43)
[2017-07-13] MEDS: CALCIUM ACETATE 667 MG CAPSULE PO SCH (09:47)
[2017-07-13] MEDS: CYPROHEPTADINE HCL 4 MG TABLET PO SCH (09:47)
[2017-07-13] MEDS: LOSARTAN POTASSIUM 50 MG TABLET PO SCH (09:47)
[2017-07-13] MEDS: CINACALCET HCL 30 MG TABLET PO SCH (09:50)
--- NOTE | 2017-07-13 14:14 | PDOC PROGRESS REPORT ---
Subjective Progress Note for:: 07/13/17 Subjective:: Complains of mild abdominal cramping. Reason For Visit: C DIFF COLITIS,SACRAL WOUND,CHRONIC KIDNEY DISEASE Physical Exam Vital Signs: Temp Pulse Resp BP Pulse Ox 98.4 F 115 H 12 141/75 H 99 07/13/17 11:51 07/13/17 11:51 07/13/17 11:51 07/13/17 11:51 07/13/17 11:51 Intake & Output 07/12/17 07/13/17 07/14/17 06:59 06:59 06:59 Intake Total 840 1418 Output Total 0 2900 Balance 840 -1482 Weight 90.9 kg 89 kg General appearance: PRESENT: no acute distress Eye exam: PRESENT: conjunctiva pink. ABSENT: scleral icterus Mouth exam: PRESENT: moist, tongue midline Neck exam: ABSENT: JVD Respiratory exam: PRESENT: clear to auscultation rose marie. ABSENT: rales, rhonchi, wheezes Cardiovascular exam: PRESENT: RRR. ABSENT: diastolic murmur, rubs, systolic murmur GI/Abdominal exam: PRESENT: normal bowel sounds, soft, tenderness - Mild epigastric tenderness. ABSENT: distended, guarding, mass, organolmegaly, rebound Extremities exam: ABSENT: calf tenderness, clubbing, pedal edema Neurological exam: PRESENT: alert, awake, oriented to person, oriented to place , oriented to time, oriented to situation, CN II-XII grossly intact. ABSENT: motor sensory deficit Psychiatric exam: PRESENT: appropriate affect Skin exam: PRESENT: dry, intact, warm. ABSENT: cyanosis, rash Results Laboratory Results: 07/12/17 05:02 07/12/17 05:02 07/12/17 23:50 Stool Occult Blood NEGATIVE 07/09/17 21:11 Blood Blood Culture - Final Staphylococcus Aureus 07/07/17 07/07/17 17:38 23:12 Troponin I 0.043 0.049 Impressions: Chest X-Ray 07/07/17 00:00 IMPRESSION: LOW LUNG VOLUMES WITH FAINT BASILAR ATELECTASIS/ INFILTRATE AND SMALL PLEURAL EFFUSIONS. CARDIOMEGALY. Abdomen X-Ray 07/07/17 10:29 IMPRESSION: As above. Diminished aeration particularly in the left lower lobe. Abdomen/Pelvis CT 07/07/17 14:27 IMPRESSION: There is an apparent lytic process involving the superior endplate of the T12 vertebra and inferior endplate of the T11 vertebra which was not present on the previous study. The appearance would suggest a discitis. MRI may be of value for further evaluation. Other findings as noted above Assessment & Plan - Diagnosis (1) C. difficile colitis Is this a current diagnosis for this admission?: Yes Plan: The patient is on oral vancomycin and is slowly improving. 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 Patient does dialysis on Wednesdays and Fridays. (3) Discitis of lumbar region Is this a current diagnosis for this admission?: Yes Plan: The findings were incidental on CT scan. Continue with IV nafcillin. (4) MSSA (methicillin susceptible Staphylococcus aureus) infection Is this a current diagnosis for this admission?: Yes Plan: Continue with IV nafcillin. (5) Anemia in chronic kidney disease Is this a current diagnosis for this admission?: Yes (6) CHF (congestive heart failure) Qualifiers: Congestive heart failure type: combined Congestive heart failure chronicity : chronic Qualified Code(s): I50.42 - Chronic combined systolic (congestive) and diastolic (congestive) heart failure Is this a current diagnosis for this admission?: Yes Plan: Patient is currently euvolemic. (7) DNR (do not resuscitate) Is this a current diagnosis for this admission?: Yes (8) Diabetes mellitus type 2 in obese Is this a current diagnosis for this admission?: Yes Plan: Continue with sliding scale insulin. (9) Rheumatoid arthritis Qualifiers: Rheumatoid arthritis location: multiple sites Rheumatoid factor presence: unspecified presence Qualified Code(s): M06.9 - Rheumatoid arthritis, unspecified Is this a current diagnosis for this admission?: Yes - Time Time Spent with patient: 25-34 minutes - Inpatient Certification Medical Necessity: Need for IV Antibiotics
[2017-07-13 14:39] LABS: HEMATOCRIT 35.3 % (36.0-47.0); MEAN CORPUSCULAR HEMOGLOBIN 26.5 pg (27.0-33.4); MEAN CORPUSCULAR HGB CONC 31.1 g/dL (32.0-36.0); MEAN CORPUSCULAR VOLUME 85 fl (80-97); PLATELET COUNT 228 10^3/uL (150-450); RED BLOOD COUNT 4.14 10^6/uL (3.72-5.28); RED CELL DISTRIBUTION WIDTH 17.7 % (11.5-14.0); WHITE BLOOD COUNT 12.7 10^3/uL (4.0-10.5)
[2017-07-13 14:49] LABS: ANION GAP 11 (5-19); BLOOD UREA NITROGEN 18 mg/dL (7-20); CALCIUM 9.5 mg/dL (8.4-10.2); CARBON DIOXIDE 28 mmol/L (22-30); CHLORIDE 96 mmol/L (98-107); GLUCOSE 118 mg/dL (75-110); POTASSIUM 4.8 mmol/L (3.6-5.0); SODIUM 134.9 mmol/L (137-145)
[2017-07-13] MEDS: ACETAMINOPHEN 325 MG TABLET PO PRN (15:10)
--- NOTE | 2017-07-13 20:07 | PDOC PROGRESS REPORT ---
Subjective Progress Note for:: 07/13/17 Subjective:: Patient was found laying in bed. At the time she was complaining of being cold and requested more blankets. She denied stomach pain and said that her diarrhea was better. Reason For Visit: C DIFF COLITIS,SACRAL WOUND,CHRONIC KIDNEY DISEASE Physical Exam Vital Signs: Temp Pulse Resp BP Pulse Ox 98.5 F 126 H 16 130/80 H 97 07/13/17 16:03 07/13/17 16:03 07/13/17 16:03 07/13/17 16:03 07/13/17 16:03 Intake & Output 07/12/17 07/13/17 07/14/17 06:59 06:59 06:59 Intake Total 840 1418 440 Output Total 0 2900 0 Balance 840 -1482 440 Weight 90.9 kg 89 kg General appearance: PRESENT: no acute distress, well-developed, well-nourished Head exam: PRESENT: atraumatic, normocephalic Mouth exam: PRESENT: moist, tongue midline Respiratory exam: PRESENT: clear to auscultation rose marie. ABSENT: accessory muscle use, rales, rhonchi, wheezes Cardiovascular exam: PRESENT: RRR, +S1, +S2 GI/Abdominal exam: PRESENT: normal bowel sounds, soft. ABSENT: organomegaly, tenderness Extremities exam: ABSENT: pedal edema, tenderness Musculoskeletal exam: PRESENT: normal inspection. ABSENT: deformity, tenderness Neurological exam: PRESENT: alert, awake, oriented to person, oriented to place , oriented to time, oriented to situation Psychiatric exam: PRESENT: appropriate affect, normal mood Skin exam: PRESENT: dry, erythema, rash, warm Results Laboratory Results: 07/13/17 13:39 07/13/17 13:39 07/12/17 07/13/17 07/13/17 23:50 13:39 13:39 WBC 12.7 H RBC 4.14 Hgb 11.0 L D Hct 35.3 L MCV 85 MCH 26.5 L MCHC 31.1 L RDW 17.7 H Plt Count 228 Sodium 134.9 L Potassium 4.8 Chloride 96 L Carbon Dioxide 28 Anion Gap 11 BUN 18 Creatinine 1.82 H Est GFR ( Amer) 32 L Est GFR (Non-Af Amer) 27 L Glucose 118 H Calcium 9.5 Stool Occult Blood NEGATIVE 07/09/17 21:11 Blood Blood Culture - Final Staphylococcus Aureus 07/07/17 07/07/17 17:38 23:12 Troponin I 0.043 0.049 Impressions: Chest X-Ray 07/07/17 00:00 IMPRESSION: LOW LUNG VOLUMES WITH FAINT BASILAR ATELECTASIS/ INFILTRATE AND SMALL PLEURAL EFFUSIONS. CARDIOMEGALY. Abdomen X-Ray 07/07/17 10:29 IMPRESSION: As above. Diminished aeration particularly in the left lower lobe. Abdomen/Pelvis CT 07/07/17 14:27 IMPRESSION: There is an apparent lytic process involving the superior endplate of the T12 vertebra and inferior endplate of the T11 vertebra which was not present on the previous study. The appearance would suggest a discitis. MRI may be of value for further evaluation. Other findings as noted above Assessment & Plan - Diagnosis (1) Hypokalemia Plan: currently potassium is 4.8, do not recommend anymore potassium replacement. Sine diarrhea has decreased potassium looks to be stabilizing (2) End stage renal disease on dialysis Plan: Will do dialysis tomorrow and pull off fluid and some potassium. (3) C. difficile colitis Is this a current diagnosis for this admission?: Yes Plan: looks to be improving, currently on oral vanc (4) Abdominal pain Qualifiers: Abdominal location: generalized Qualified Code(s): R10.84 - Generalized abdominal pain Plan: resolved (5) Anemia in chronic kidney disease Is this a current diagnosis for this admission?: Yes Plan: looks to be improved, will not give epogen if it remains over 10.5 (6) Essential hypertension Plan: looks to be well controlled (7) Discitis of lumbar region Is this a current diagnosis for this admission?: Yes Plan: currently being handled by hospitalist
[2017-07-13] MEDS: ATORVASTATIN CALCIUM 20 MG TABLET PO SCH (21:59)
--- NOTE | 2017-07-13 22:19 | Palliative Consultation Report ---
Consultation From:: JASMIN AVALOS Consult Reason: esrd - HPI HPI: Palliative Care Consult visit 07/13/17 1:05- 2:15 PM Appreciate consult request with this 82 year old woman who is hospitalized with sepsis and C-Diff colitis. She has been having abd pain and diarrhea for 3 months according to daughter who cares for her at home. Multiple trips to other ER did not help but she was brought to [facility] and was admitted, receiving IV antibiotics. Mrs. Martin is awake and talking, oriented and denies pain except with movement. However, she is very weak. Mrs. Martin has ESRD requiring dialysis 3 X weekly for the past 8 years. Her daughter has been taking her to dialysis with the help of a home health aide who comes to the house three times a week. She has aide assistance the other four days also. However, patient is much weaker than usual and is still having diarrhea stools, eating less and is unable to stand at this point. Her three daughters talked with me at length about options for care, including hospice, continuing care at home or placement in SNF for rehab while she is regaining strength form this illness if possible. Family is in agreement that patient should not stop dialysis and so hospice would not be an option. Long talk with family about patients condition and possibility of improvement or possible further decline given her age, years of dialysis and recent serious illness. She is very weak and frail, anemic and has malnutrition. We discussed all of these things including the fact that she will be more difficult to care for after this illness. Option of SNF for rehab may be helpful for both patient and also to have access for more caregivers instead of her daughter having to provide care alone for 20 hours each day. In addition, we discussed advance directives while all three daughters were present. Patient has said that she does not want resuscitation measures and would not want to be kept alive on ventilator. We discussed the reality and futilty of CPR, intubation and terminal manager acute care. They decided that they should honor the patients wishes although they had een hesitant to make her a DNR in the past. Onset: Other Onset/Duration: Persistent Quality of Pain: Cramping Severity: Moderate Associated Symptoms: Diarrhea, Weakness Exacerbated by: Food Past Medical History(Consults) - General Information Source: Patient, [facility] Records Home Medications: Amlodipine Besylate [Norvasc 5 mg Tablet] 5 mg PO DAILY 07/07/17 Atorvastatin Calcium [Lipitor 20 mg Tablet] 20 mg PO QHS 07/07/17 Calcium Acetate 667 mg PO DAILY 07/07/17 Cinacalcet HCl [Sensipar 30 Mg Tablet] 30 mg PO DAILY 07/07/17 Cyproheptadine HCl [Periactin 4 Mg Tablet] 4 mg PO DAILY 07/07/17 Linagliptin [Tradjenta] 5 mg PO DAILY 07/07/17 Losartan Potassium [Cozaar 100 mg Tablet] 100 mg PO DAILY 07/07/17 Ranitidine HCl [Zantac 150 mg Tablet] 150 mg PO Q12 07/07/17 Allergies/Adverse Reactions: No Known Allergies Allergy (Verified 07/07/17 09:57) - Social History Lives with: Family Family History: Reviewed & Not Pertinent, DM, Hypertension Parental Family History Reviewed: No Children Family History Reviewed: No Sibling(s) Family History Reviewed.: No Smoking Status: Never Smoker Frequency of Alcohol Use: None Hx Recreational Drug Use: No Drugs: None Hx Prescription Drug Abuse: No - Past Medical History Cardiac Medical History: Reports: Hx Congestive Heart Failure, Hx Hypercholesterolemia, Hx Hypertension Pulmonary Medical History: Denies: Hx Tuberculosis Endocrine Medical History: Reports: Hx Diabetes Mellitus Type 2 Renal/ Medical History: Reports: Hx End Stage Renal Disease - On hemodialysis MWFComment Only: Hx Peritoneal Dialysis - pt due for dialysis today GI Medical History: Denies: Hx Cirrhosis, Hx Crohn's Disease, Hx Diverticulitis , Hx Gastritis, Hx Gastroesophageal Reflux Disease, Hx Hepatitis, Hx Hiatal Hernia, Hx Irritable Bowel, Hx Liver Failure, Hx Pancreatitis, Hx Ulcer, Hx Ulcerative Colitis, Hx Colonoscopy, Hx Endoscopic Retrograde Cholangio, Hx Endoscopy Musculoskeltal Medical History: Reports Hx Arthritis Psychiatric Medical History: Denies: Hx Depression Infectious Medical History: Denies: Hx Hepatitis Hematology: Reports: Anemia - Surgical History Past Surgical History: Reports: Hx Orthopedic Surgery - Hip replacement, Hx Vascular Surgery - Fistula - Immunizations Immunizations up to date: Yes Review of systems Constitutional: Weakness, Weight loss, Recent illness Gastrointestinal: Abdominal pain, Diarrhea, Nausea Musculoskeltal: Joint pain Hematologic/Lymphatic: Anemia Neurological/Psychological: Weakness Ojective:Exam Vital Signs: Temp Pulse Resp BP Pulse Ox 98.7 F 113 H 18 131/62 H 97 07/13/17 19:55 07/13/17 19:55 07/13/17 19:55 07/13/17 19:55 07/13/17 19:55 Intake & Output 07/12/17 07/13/17 07/14/17 06:59 06:59 06:59 Intake Total 840 1418 440 Output Total 0 2900 0 Balance 840 -1482 440 Weight 90.9 kg 89 kg - General General Appearance: Alert In distress: None - HEENT Head: Normocephalic Conjunctiva: Normal Pupils: PERRLA Mouth/Lips: Normal - Respiratory Respiratory Status: No respiratory distress Breath sounds: Rhonchi - Cardiovascular Rhythm: Regular - Abdominal Inspection: Normal Bowel Sounds: Normal Stool: Other - Psychological Associated symptoms: Normal affect, Anxious - Skin Skin Temperature: Warm Skin Moisture: Dry Skin Color: Normal - Stage II decubitus on mid sacral area, approx 1"x 1.5", superficial loss of tissues with no bleeding and no sign of infection. Objective-Diagnostic Laboratory: 07/13/17 13:39 07/13/17 13:39 07/12/17 07/13/17 07/13/17 23:50 13:39 13:39 WBC 12.7 H RBC 4.14 Hgb 11.0 L D Hct 35.3 L MCV 85 MCH 26.5 L MCHC 31.1 L RDW 17.7 H Plt Count 228 Sodium 134.9 L Potassium 4.8 Chloride 96 L Carbon Dioxide 28 Anion Gap 11 BUN 18 Creatinine 1.82 H Est GFR ( Amer) 32 L Est GFR (Non-Af Amer) 27 L Glucose 118 H Calcium 9.5 Stool Occult Blood NEGATIVE 07/09/17 21:11 Blood Blood Culture - Final Staphylococcus Aureus 07/07/17 07/07/17 17:38 23:12 Troponin I 0.043 0.049 Plan and Recommendation Plan and Recommendation: Family will speak with facilities planner about possibility of placing patient in rehab. Also, they want to know about the possibility of ambulance transfer to dialysis from home. Daughter thinks she can care for patient if she can be transported to dialysis from home. Dr. Briceno notified of family decision to make patient DNR as she has requested. Sisters are in agreement. No recommendations for medications as patient is not having pain, just cramping with stooling. Discussed care of decubitus on her sacral area, I suggested she would benefit from use of barrier creams instead of adhesive dressings since stage II and she has frequent loose/liquid stools that soil dressings. In addition adhesive on dressings damages surrounding tissues. It will be difficult for one daughter to care for her alone so much of the day, but she feels she can do it. Will follow for support. - Time Spent with Patient Time spent with patient: 60 to 90 Minutes
[2017-07-14] MEDS: VANCOMYCIN HCL INJ 500 MG VIAL PO SCH ×4 (02:21→17:13)
[2017-07-14] MEDS: NAFCILLIN SODIUM 1 GM in DEXTROSE 5%-WATER 50 ML IV SCH ×6 (02:22→21:30)
[2017-07-14] MEDS: HEPARIN SOD (PORCINE) 5,000 UNIT/ML 1 ML SYRINGE SUBCUT SCH ×3 (05:31→21:31)
[2017-07-14] MEDS: ACETAMINOPHEN 325 MG TABLET PO PRN ×2 (05:31→16:00)
[2017-07-14 06:27] LABS: ABSOLUTE EOSINOPHILS # (AUTO) 0.2 10^3/uL (0.0-0.6); ABSOLUTE LYMPHOCYTES (AUTO) 0.7 10^3/uL (0.5-4.7); ABSOLUTE MONOCYTES (AUTO) 0.7 10^3/uL (0.1-1.4); ABSOLUTE NEUT (AUTO) 10.9 10^3/uL (1.7-8.2); BASOPHILS % (AUTO) 0.2 % (0-2); EOSINOPHILS % (AUTO) 1.5 % (0-6); HEMATOCRIT 34.6 % (36.0-47.0); HEMOGLOBIN 10.8 g/dL (12.0-15.5); LYMPHOCYTES % (AUTO) 5.3 % (13-45); MEAN CORPUSCULAR HEMOGLOBIN 26.8 pg (27.0-33.4); MEAN CORPUSCULAR HGB CONC 31.4 g/dL (32.0-36.0); MEAN CORPUSCULAR VOLUME 86 fl (80-97); MONOCYTES % (AUTO) 5.5 % (3-13); PLATELET COUNT 162 10^3/uL (150-450); RED BLOOD COUNT 4.05 10^6/uL (3.72-5.28); RED CELL DISTRIBUTION WIDTH 17.7 % (11.5-14.0); SEGMENTED NEUTROPHILS % (AUTO) 87.5 % (42-78); TOTAL CELLS COUNTED % (AUTO) 100 %; WHITE BLOOD COUNT 12.4 10^3/uL (4.0-10.5)
[2017-07-14 07:41] LABS: ANION GAP 5 (5-19); BLOOD UREA NITROGEN 23 mg/dL (7-20); CALCIUM 9.6 mg/dL (8.4-10.2); CARBON DIOXIDE 28 mmol/L (22-30); CHLORIDE 97 mmol/L (98-107); GLUCOSE 144 mg/dL (75-110); POTASSIUM 5.1 mmol/L (3.6-5.0); SODIUM 129.8 mmol/L (137-145)
[2017-07-14] MEDS: LOSARTAN POTASSIUM 50 MG TABLET PO SCH (12:18)
[2017-07-14] MEDS: CYPROHEPTADINE HCL 4 MG TABLET PO SCH (12:18)
[2017-07-14] MEDS: CALCIUM ACETATE 667 MG CAPSULE PO SCH (12:19)
[2017-07-14] MEDS: CINACALCET HCL 30 MG TABLET PO SCH (12:19)
--- NOTE | 2017-07-14 12:30 | PDOC PROGRESS REPORT ---
Subjective Progress Note for:: 07/14/17 Reason For Visit: Seen on dialysis.No issues.Denies any chest pains, dyspnea. Diarrhea resolved.No abdominal pains, fever . Physical Exam Vital Signs: Temp Pulse Resp BP Pulse Ox 97.1 F 107 H 16 159/63 H 100 07/14/17 11:50 07/14/17 11:50 07/14/17 11:50 07/14/17 11:50 07/14/17 11:50 Intake & Output 07/13/17 07/14/17 07/15/17 06:59 06:59 06:59 Intake Total 1418 938 Output Total 2900 0 Balance -1482 938 Weight 89 kg 89 kg General appearance: PRESENT: no acute distress Respiratory exam: PRESENT: clear to auscultation rose marie. ABSENT: crackles, rhonchi Cardiovascular exam: PRESENT: RRR, +S1, +S2 GI/Abdominal exam: PRESENT: normal bowel sounds, soft. ABSENT: organomegaly, tenderness Extremities exam: PRESENT: pedal edema Neurological exam: PRESENT: oriented to person, oriented to place Skin exam: ABSENT: erythema, mottled Results Laboratory Results: 07/14/17 06:05 07/14/17 07:21 07/13/17 07/13/17 07/14/17 13:39 13:39 06:05 WBC 12.7 H 12.4 H RBC 4.14 4.05 Hgb 11.0 L D 10.8 L Hct 35.3 L 34.6 L MCV 85 86 MCH 26.5 L 26.8 L MCHC 31.1 L 31.4 L RDW 17.7 H 17.7 H Plt Count 228 162 Seg Neutrophils % 87.5 H Lymphocytes % 5.3 L Monocytes % 5.5 Eosinophils % 1.5 Basophils % 0.2 Absolute Neutrophils 10.9 H Absolute Lymphocytes 0.7 Absolute Monocytes 0.7 Absolute Eosinophils 0.2 Absolute Basophils 0.0 Sodium 134.9 L Potassium 4.8 Chloride 96 L Carbon Dioxide 28 Anion Gap 11 BUN 18 Creatinine 1.82 H Est GFR ( Amer) 32 L Est GFR (Non-Af Amer) 27 L Glucose 118 H Calcium 9.5 07/14/17 07/14/17 06:05 07:21 WBC RBC Hgb Hct MCV MCH MCHC RDW Plt Count Seg Neutrophils % Lymphocytes % Monocytes % Eosinophils % Basophils % Absolute Neutrophils Absolute Lymphocytes Absolute Monocytes Absolute Eosinophils Absolute Basophils Sodium Cancelled 129.8 L Potassium Cancelled 5.1 H Chloride Cancelled 97 L Carbon Dioxide Cancelled 28 Anion Gap Cancelled 5 BUN Cancelled 23 H Creatinine Cancelled 2.21 H Est GFR ( Amer) Cancelled 26 L Est GFR (Non-Af Amer) Cancelled 21 L Glucose Cancelled 144 H Calcium Cancelled 9.6 07/09/17 21:11 Blood Blood Culture - Final Staphylococcus Aureus 07/07/17 07/07/17 17:38 23:12 Troponin I 0.043 0.049 Impressions: Chest X-Ray 07/07/17 00:00 IMPRESSION: LOW LUNG VOLUMES WITH FAINT BASILAR ATELECTASIS/ INFILTRATE AND SMALL PLEURAL EFFUSIONS. CARDIOMEGALY. Abdomen X-Ray 07/07/17 10:29 IMPRESSION: As above. Diminished aeration particularly in the left lower lobe. Abdomen/Pelvis CT 07/07/17 14:27 IMPRESSION: There is an apparent lytic process involving the superior endplate of the T12 vertebra and inferior endplate of the T11 vertebra which was not present on the previous study. The appearance would suggest a discitis. MRI may be of value for further evaluation. Other findings as noted above Assessment & Plan - Diagnosis (1) End stage renal disease on dialysis Plan: Seen on HD which is being supervised to ensure a safe and smooth procedure. VS are stable Undergoing HD without any issues. Plan to remove a litre . Orders were discussed with the treating RN. (2) C. difficile colitis Is this a current diagnosis for this admission?: Yes Plan: On po Vanc. As per hospitalist. (3) Hypokalemia Plan: Resolved. High K now and so dc Kcl replacements. .Monitor. (4) Anemia in chronic kidney disease Is this a current diagnosis for this admission?: Yes Plan: S/P transfusion. Adjust EPO. (5) Diabetes mellitus type 2 in obese Is this a current diagnosis for this admission?: Yes Plan: Adv tight control. (6) MSSA (methicillin susceptible Staphylococcus aureus) infection Is this a current diagnosis for this admission?: Yes Plan: On antibiotics as per hospitalist. (7) Sacral decubitus ulcer, stage II Is this a current diagnosis for this admission?: Yes Plan: as per hospitalist. (8) Hyponatremia Plan: Adv on fluids.See response to dialysis.Monitor.
--- NOTE | 2017-07-14 13:20 | PDOC PROGRESS REPORT ---
Subjective Progress Note for:: 07/14/17 Subjective:: The patient had dialysis this morning. She denies any complaints. She is still having some loose bowel movements. Reason For Visit: C DIFF COLITIS,SACRAL WOUND,CHRONIC KIDNEY DISEASE Physical Exam Vital Signs: Temp Pulse Resp BP Pulse Ox 97.1 F 107 H 16 159/63 H 100 07/14/17 11:50 07/14/17 11:50 07/14/17 11:50 07/14/17 11:50 07/14/17 11:50 Intake & Output 07/13/17 07/14/17 07/15/17 06:59 06:59 06:59 Intake Total 1418 938 Output Total 2900 0 1100 Balance -1482 938 -1100 Weight 89 kg 89 kg General appearance: PRESENT: no acute distress Eye exam: PRESENT: conjunctiva pink. ABSENT: scleral icterus Mouth exam: PRESENT: moist, tongue midline Neck exam: ABSENT: carotid bruit, JVD, lymphadenopathy, thyromegaly Respiratory exam: PRESENT: clear to auscultation rose marie. ABSENT: rales, rhonchi, wheezes Cardiovascular exam: PRESENT: RRR. ABSENT: diastolic murmur, rubs, systolic murmur GI/Abdominal exam: PRESENT: normal bowel sounds, soft. ABSENT: distended, guarding, mass, organolmegaly, rebound, tenderness Extremities exam: ABSENT: calf tenderness, clubbing, pedal edema Neurological exam: PRESENT: alert, awake, oriented to person, oriented to place , oriented to time, oriented to situation, CN II-XII grossly intact. ABSENT: motor sensory deficit Skin exam: PRESENT: dry, intact, warm. ABSENT: cyanosis, rash Results Laboratory Results: 07/14/17 06:05 07/14/17 07:21 07/13/17 07/13/17 07/14/17 13:39 13:39 06:05 WBC 12.7 H 12.4 H RBC 4.14 4.05 Hgb 11.0 L D 10.8 L Hct 35.3 L 34.6 L MCV 85 86 MCH 26.5 L 26.8 L MCHC 31.1 L 31.4 L RDW 17.7 H 17.7 H Plt Count 228 162 Seg Neutrophils % 87.5 H Lymphocytes % 5.3 L Monocytes % 5.5 Eosinophils % 1.5 Basophils % 0.2 Absolute Neutrophils 10.9 H Absolute Lymphocytes 0.7 Absolute Monocytes 0.7 Absolute Eosinophils 0.2 Absolute Basophils 0.0 Sodium 134.9 L Potassium 4.8 Chloride 96 L Carbon Dioxide 28 Anion Gap 11 BUN 18 Creatinine 1.82 H Est GFR ( Amer) 32 L Est GFR (Non-Af Amer) 27 L Glucose 118 H Calcium 9.5 07/14/17 07/14/17 06:05 07:21 WBC RBC Hgb Hct MCV MCH MCHC RDW Plt Count Seg Neutrophils % Lymphocytes % Monocytes % Eosinophils % Basophils % Absolute Neutrophils Absolute Lymphocytes Absolute Monocytes Absolute Eosinophils Absolute Basophils Sodium Cancelled 129.8 L Potassium Cancelled 5.1 H Chloride Cancelled 97 L Carbon Dioxide Cancelled 28 Anion Gap Cancelled 5 BUN Cancelled 23 H Creatinine Cancelled 2.21 H Est GFR ( Amer) Cancelled 26 L Est GFR (Non-Af Amer) Cancelled 21 L Glucose Cancelled 144 H Calcium Cancelled 9.6 07/09/17 21:11 Blood Blood Culture - Final Staphylococcus Aureus 07/07/17 07/07/17 17:38 23:12 Troponin I 0.043 0.049 Impressions: Chest X-Ray 07/07/17 00:00 IMPRESSION: LOW LUNG VOLUMES WITH FAINT BASILAR ATELECTASIS/ INFILTRATE AND SMALL PLEURAL EFFUSIONS. CARDIOMEGALY. Abdomen X-Ray 07/07/17 10:29 IMPRESSION: As above. Diminished aeration particularly in the left lower lobe. Abdomen/Pelvis CT 07/07/17 14:27 IMPRESSION: There is an apparent lytic process involving the superior endplate of the T12 vertebra and inferior endplate of the T11 vertebra which was not present on the previous study. The appearance would suggest a discitis. MRI may be of value for further evaluation. Other findings as noted above Assessment & Plan - Diagnosis (1) C. difficile colitis Is this a current diagnosis for this admission?: Yes Plan: The patient is on oral vancomycin and is slowly improving. 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 Patient does dialysis on Wednesdays and Fridays. (3) Discitis of lumbar region Is this a current diagnosis for this admission?: Yes Plan: The findings were incidental on CT scan. Continue with IV nafcillin. (4) MSSA (methicillin susceptible Staphylococcus aureus) infection Is this a current diagnosis for this admission?: Yes Plan: Continue with IV nafcillin. (5) Anemia in chronic kidney disease Is this a current diagnosis for this admission?: Yes (6) CHF (congestive heart failure) Qualifiers: Congestive heart failure type: combined Congestive heart failure chronicity : chronic Qualified Code(s): I50.42 - Chronic combined systolic (congestive) and diastolic (congestive) heart failure Is this a current diagnosis for this admission?: Yes Plan: Patient is currently euvolemic. (7) DNR (do not resuscitate) Is this a current diagnosis for this admission?: Yes Plan: Patient's family request for her to be DO NOT RESUSCITATE. (8) Diabetes mellitus type 2 in obese Is this a current diagnosis for this admission?: Yes Plan: Continue with sliding scale insulin. (9) Rheumatoid arthritis Qualifiers: Rheumatoid arthritis location: multiple sites Rheumatoid factor presence: unspecified presence Qualified Code(s): M06.9 - Rheumatoid arthritis, unspecified Is this a current diagnosis for this admission?: Yes - Time Time Spent with patient: 25-34 minutes
[2017-07-14] MEDS: ATORVASTATIN CALCIUM 20 MG TABLET PO SCH (21:31)
[2017-07-15] MEDS: NAFCILLIN SODIUM 1 GM in DEXTROSE 5%-WATER 50 ML IV SCH ×6 (02:49→21:27)
[2017-07-15] MEDS: HEPARIN SOD (PORCINE) 5,000 UNIT/ML 1 ML SYRINGE SUBCUT SCH ×3 (06:47→21:27)
[2017-07-15] MEDS: VANCOMYCIN HCL INJ 500 MG VIAL PO SCH ×4 (06:47→17:50)
[2017-07-15 06:49] LABS: ANION GAP 6 (5-19); BLOOD UREA NITROGEN 12 mg/dL (7-20); CALCIUM 9.3 mg/dL (8.4-10.2); CARBON DIOXIDE 30 mmol/L (22-30); CHLORIDE 98 mmol/L (98-107); GLUCOSE 115 mg/dL (75-110); MAGNESIUM 1.8 mg/dL (1.6-2.3); PHOSPHORUS 2.5 mg/dL (2.5-4.5); SODIUM 133.8 mmol/L (137-145)
[2017-07-15 06:50] LABS: POTASSIUM 3.4 mmol/L (3.6-5.0)
[2017-07-15] MEDS: LOSARTAN POTASSIUM 50 MG TABLET PO SCH (10:11)
[2017-07-15] MEDS: CINACALCET HCL 30 MG TABLET PO SCH (10:11)
[2017-07-15] MEDS: CYPROHEPTADINE HCL 4 MG TABLET PO SCH (10:11)
[2017-07-15] MEDS: CALCIUM ACETATE 667 MG CAPSULE PO SCH (10:12)
[2017-07-15] MEDS: ACETAMINOPHEN 325 MG TABLET PO PRN (12:22)
--- NOTE | 2017-07-15 12:35 | PDOC PROGRESS REPORT ---
Subjective Progress Note for:: 07/15/17 Subjective:: Patient continues to have loose bowel movements. She also has had some complaints of crampy abdominal pain. Reason For Visit: C DIFF COLITIS,SACRAL WOUND,CHRONIC KIDNEY DISEASE Physical Exam Vital Signs: Temp Pulse Resp BP Pulse Ox 98.2 F 118 H 18 112/50 L 98 07/15/17 11:53 07/15/17 11:53 07/15/17 11:53 07/15/17 11:53 07/15/17 11:53 Intake & Output 07/14/17 07/15/17 07/16/17 06:59 06:59 06:59 Intake Total 938 952 Output Total 0 1100 Balance 938 -148 Weight 89 kg 89 kg General appearance: PRESENT: no acute distress Eye exam: PRESENT: conjunctiva pink. ABSENT: scleral icterus Ear exam: PRESENT: normal external ear exam Mouth exam: PRESENT: moist, tongue midline Neck exam: ABSENT: JVD Respiratory exam: PRESENT: clear to auscultation rose marie. ABSENT: rales, rhonchi, wheezes Cardiovascular exam: PRESENT: RRR. ABSENT: diastolic murmur, rubs, systolic murmur GI/Abdominal exam: PRESENT: normal bowel sounds, soft, tenderness - Mild periumbilical tenderness but no guarding or rebound.. ABSENT: distended, guarding, mass, organolmegaly, rebound Extremities exam: ABSENT: calf tenderness, clubbing, pedal edema Neurological exam: PRESENT: alert, awake, oriented to person, oriented to place , oriented to time, oriented to situation, CN II-XII grossly intact. ABSENT: motor sensory deficit Psychiatric exam: PRESENT: appropriate affect Skin exam: PRESENT: dry, intact, warm, other - Dressing in place on the sacral decubitus. ABSENT: cyanosis, rash Results Laboratory Results: 07/14/17 06:05 07/15/17 06:26 07/15/17 06:26 Sodium 133.8 L Potassium 3.4 L D Chloride 98 Carbon Dioxide 30 Anion Gap 6 BUN 12 Creatinine 1.47 H Est GFR ( Amer) 41 L Est GFR (Non-Af Amer) 34 L Glucose 115 H Calcium 9.3 Phosphorus 2.5 Magnesium 1.8 07/07/17 07/07/17 17:38 23:12 Troponin I 0.043 0.049 Impressions: Chest X-Ray 07/07/17 00:00 IMPRESSION: LOW LUNG VOLUMES WITH FAINT BASILAR ATELECTASIS/ INFILTRATE AND SMALL PLEURAL EFFUSIONS. CARDIOMEGALY. Abdomen X-Ray 07/07/17 10:29 IMPRESSION: As above. Diminished aeration particularly in the left lower lobe. Abdomen/Pelvis CT 07/07/17 14:27 IMPRESSION: There is an apparent lytic process involving the superior endplate of the T12 vertebra and inferior endplate of the T11 vertebra which was not present on the previous study. The appearance would suggest a discitis. MRI may be of value for further evaluation. Other findings as noted above Assessment & Plan - Diagnosis (1) C. difficile colitis Is this a current diagnosis for this admission?: Yes Plan: The patient is on oral vancomycin and is slowly improving. Does have some complaints of abdominal pain. Nursing staff reports that the number bowel movements have slowed slightly 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 Is this a current diagnosis for this admission?: Yes Plan: Stage V chronic renal failure. Patient does dialysis on Wednesdays and Fridays. (3) Discitis of lumbar region Is this a current diagnosis for this admission?: Yes Plan: The findings were incidental on CT scan. Continue with IV nafcillin. (4) MSSA (methicillin susceptible Staphylococcus aureus) infection Is this a current diagnosis for this admission?: Yes Plan: Continue with IV nafcillin for 14 days total. (5) Anemia in chronic kidney disease Is this a current diagnosis for this admission?: Yes (6) CHF (congestive heart failure) Qualifiers: Congestive heart failure type: combined Congestive heart failure chronicity : chronic Qualified Code(s): I50.42 - Chronic combined systolic (congestive) and diastolic (congestive) heart failure Is this a current diagnosis for this admission?: Yes Plan: Patient is currently euvolemic. (7) DNR (do not resuscitate) Is this a current diagnosis for this admission?: Yes Plan: Patient's family request for her to be DO NOT RESUSCITATE. (8) Diabetes mellitus type 2 in obese Is this a current diagnosis for this admission?: Yes Plan: Continue with sliding scale insulin. (9) Rheumatoid arthritis Qualifiers: Rheumatoid arthritis location: multiple sites Rheumatoid factor presence: unspecified presence Qualified Code(s): M06.9 - Rheumatoid arthritis, unspecified Is this a current diagnosis for this admission?: Yes - Time Time Spent with patient: 25-34 minutes - Inpatient Certification Medical Necessity: Need for IV Antibiotics
[2017-07-15] MEDS ORDERED: POTASSI CL 20 MEQ/50 ML RIDER 20 MEQ/50 ML RTUPB IV ONE (16:30)
--- NOTE | 2017-07-15 19:07 | PDOC PROGRESS REPORT ---
Subjective Progress Note for:: 07/15/17 Subjective:: Patient was laying comfortably in her bed. According to her family member that was at bed side she was complaining of abdominal pain again. She also has had increased diarrhea according to the nurse that is watching over her care. Reason For Visit: C DIFF COLITIS,SACRAL WOUND,CHRONIC KIDNEY DISEASE Physical Exam Vital Signs: Temp Pulse Resp BP Pulse Ox 98.5 F 103 H 19 134/70 H 97 07/15/17 16:14 07/15/17 16:14 07/15/17 16:14 07/15/17 16:14 07/15/17 16:14 Intake & Output 07/14/17 07/15/17 07/16/17 06:59 06:59 06:59 Intake Total 938 952 720 Output Total 0 1100 Balance 938 -148 720 Weight 89 kg 89 kg General appearance: PRESENT: no acute distress, well-developed, well-nourished Mouth exam: PRESENT: moist, tongue midline Respiratory exam: PRESENT: clear to auscultation rose marie. ABSENT: accessory muscle use, chest wall tenderness, crackles, rales, rhonchi Cardiovascular exam: PRESENT: RRR, +S1, +S2 GI/Abdominal exam: PRESENT: normal bowel sounds, soft. ABSENT: organomegaly, tenderness Extremities exam: PRESENT: pedal edema - -trace+. ABSENT: tenderness Musculoskeletal exam: PRESENT: normal inspection. ABSENT: tenderness Neurological exam: PRESENT: alert, awake, oriented to person, oriented to place , oriented to time, oriented to situation Skin exam: PRESENT: dry, rash Results Laboratory Results: 07/14/17 06:05 07/15/17 06:26 07/15/17 06:26 Sodium 133.8 L Potassium 3.4 L D Chloride 98 Carbon Dioxide 30 Anion Gap 6 BUN 12 Creatinine 1.47 H Est GFR ( Amer) 41 L Est GFR (Non-Af Amer) 34 L Glucose 115 H Calcium 9.3 Phosphorus 2.5 Magnesium 1.8 07/07/17 07/07/17 17:38 23:12 Troponin I 0.043 0.049 Impressions: Chest X-Ray 07/07/17 00:00 IMPRESSION: LOW LUNG VOLUMES WITH FAINT BASILAR ATELECTASIS/ INFILTRATE AND SMALL PLEURAL EFFUSIONS. CARDIOMEGALY. Abdomen X-Ray 07/07/17 10:29 IMPRESSION: As above. Diminished aeration particularly in the left lower lobe. Abdomen/Pelvis CT 07/07/17 14:27 IMPRESSION: There is an apparent lytic process involving the superior endplate of the T12 vertebra and inferior endplate of the T11 vertebra which was not present on the previous study. The appearance would suggest a discitis. MRI may be of value for further evaluation. Other findings as noted above Assessment & Plan - Diagnosis (1) Hypokalemia Plan: due to diarrhea PO potassium was not ordered. The patient was set up on 20mEQ of K-riders for just one dose, will re-evaluate her potassium tomorrow (2) End stage renal disease on dialysis Plan: Will do dialysis tomorrow and pull off fluid to help decrease the minor edema (3) C. difficile colitis Is this a current diagnosis for this admission?: Yes Plan: on PO vanc (4) Abdominal pain Qualifiers: Abdominal location: generalized Qualified Code(s): R10.84 - Generalized abdominal pain Plan: most likely due to diarrhea (5) Anemia in chronic kidney disease Is this a current diagnosis for this admission?: Yes Plan: currently stable (6) Essential hypertension Plan: well controlled (7) Discitis of lumbar region Is this a current diagnosis for this admission?: Yes
[2017-07-15] MEDS: ATORVASTATIN CALCIUM 20 MG TABLET PO SCH (21:27)
[2017-07-15] MEDS: OXYCODONE HCL IR 5 MG TABLET PO PRN (22:49)
[2017-07-16] MEDS: VANCOMYCIN HCL INJ 500 MG VIAL PO SCH ×4 (00:15→18:13)
[2017-07-16] MEDS: NAFCILLIN SODIUM 1 GM in DEXTROSE 5%-WATER 50 ML IV SCH ×6 (02:29→22:48)
[2017-07-16 05:07] LABS: HEMOGLOBIN 9.3 g/dL (12.0-15.5); MEAN CORPUSCULAR HGB CONC 31.2 g/dL (32.0-36.0); MEAN CORPUSCULAR VOLUME 87 fl (80-97); PLATELET COUNT 201 10^3/uL (150-450); RED BLOOD COUNT 3.46 10^6/uL (3.72-5.28)
[2017-07-16 05:13] LABS: ANION GAP 9 (5-19); BLOOD UREA NITROGEN 17 mg/dL (7-20); CARBON DIOXIDE 28 mmol/L (22-30); CHLORIDE 95 mmol/L (98-107); GLUCOSE 120 mg/dL (75-110); POTASSIUM 3.7 mmol/L (3.6-5.0); SODIUM 131.7 mmol/L (137-145)
[2017-07-16] MEDS: HEPARIN SOD (PORCINE) 5,000 UNIT/ML 1 ML SYRINGE SUBCUT SCH ×3 (05:46→22:49)
[2017-07-16] MEDS: OXYCODONE HCL IR 5 MG TABLET PO PRN ×3 (06:37→19:02)
--- NOTE | 2017-07-16 09:53 | PDOC PROGRESS REPORT ---
Subjective Progress Note for:: 07/16/17 Reason For Visit: She was seen on dialysis today.She is undergoing dialysis without any issues.She denies any chest pains, dyspnea, fever or chills.She has mild generalised abdominal pains.She looks rather depressed. Physical Exam Vital Signs: Temp Pulse Resp BP Pulse Ox 98.3 F 134 H 18 131/79 H 94 07/16/17 07:39 07/16/17 07:39 07/16/17 07:39 07/16/17 07:39 07/16/17 07:39 Intake & Output 07/15/17 07/16/17 07/17/17 06:59 06:59 06:59 Intake Total 952 1220 Output Total 1100 Balance -148 1220 Weight 89 kg 91.4 kg General appearance: PRESENT: no acute distress Exam: looks depressed. Respiratory exam: PRESENT: clear to auscultation rose marie. ABSENT: crackles, rhonchi Cardiovascular exam: PRESENT: RRR, +S1, +S2 GI/Abdominal exam: PRESENT: normal bowel sounds, soft. ABSENT: organomegaly, tenderness Extremities exam: PRESENT: +1 edema Neurological exam: PRESENT: oriented to person, oriented to place Skin exam: ABSENT: cyanosis, erythema Results Laboratory Results: 07/16/17 04:08 07/16/17 04:08 07/16/17 07/16/17 04:08 04:08 WBC 9.0 RBC 3.46 L Hgb 9.3 L Hct 30.0 L MCV 87 MCH 27.0 MCHC 31.2 L RDW 18.0 H Plt Count 201 Sodium 131.7 L Potassium 3.7 Chloride 95 L Carbon Dioxide 28 Anion Gap 9 BUN 17 Creatinine 1.89 H Est GFR ( Amer) 31 L Est GFR (Non-Af Amer) 26 L Glucose 120 H Calcium 9.0 07/11/17 09:30 Blood Blood Culture - Final NO GROWTH IN 5 DAYS 07/07/17 07/07/17 17:38 23:12 Troponin I 0.043 0.049 Impressions: Chest X-Ray 07/07/17 00:00 IMPRESSION: LOW LUNG VOLUMES WITH FAINT BASILAR ATELECTASIS/ INFILTRATE AND SMALL PLEURAL EFFUSIONS. CARDIOMEGALY. Abdomen X-Ray 07/07/17 10:29 IMPRESSION: As above. Diminished aeration particularly in the left lower lobe. Abdomen/Pelvis CT 07/07/17 14:27 IMPRESSION: There is an apparent lytic process involving the superior endplate of the T12 vertebra and inferior endplate of the T11 vertebra which was not present on the previous study. The appearance would suggest a discitis. MRI may be of value for further evaluation. Other findings as noted above Assessment & Plan - Diagnosis (1) End stage renal disease on dialysis Plan: Seen on HD which is being supervised to ensure a safe and smooth procedure. VS are stable Undergoing HD without any issues. Plan to remove 2-3 litres as tolerated . Orders were discussed with the treating RN. (2) C. difficile colitis Is this a current diagnosis for this admission?: Yes Plan: On po Vanc. As per hospitalist. (3) Hypokalemia Plan: Resolved.Monitor. (4) Anemia in chronic kidney disease Is this a current diagnosis for this admission?: Yes Plan: S/P transfusion. Adjust EPO. (5) Diabetes mellitus type 2 in obese Is this a current diagnosis for this admission?: Yes Plan: Adv tight control. (6) MSSA (methicillin susceptible Staphylococcus aureus) infection Is this a current diagnosis for this admission?: Yes Plan: On antibiotics as per hospitalist. (7) Sacral decubitus ulcer, stage II Is this a current diagnosis for this admission?: Yes Plan: as per hospitalist. (8) Hyponatremia Plan: Adv on fluids.See response to dialysis.Monitor.
[2017-07-16] MEDS ORDERED: EPOETIN ALFA INJ 20,000 UNIT/1 ML VIAL (ONCOLOGY) IV SCH (10:00)
[2017-07-16] MEDS: EPOETIN ALFA 10,000 UNIT in SYRINGE, DISPOSABLE, 1 EACH IV SCH (11:22)
[2017-07-16] MEDS: CYPROHEPTADINE HCL 4 MG TABLET PO SCH (12:37)
[2017-07-16] MEDS: CALCIUM ACETATE 667 MG CAPSULE PO SCH (12:37)
[2017-07-16] MEDS: CINACALCET HCL 30 MG TABLET PO SCH (12:37)
[2017-07-16] MEDS: LOSARTAN POTASSIUM 50 MG TABLET PO SCH (12:37)
--- NOTE | 2017-07-16 16:14 | PDOC PROGRESS REPORT ---
Subjective Progress Note for:: 07/16/17 Subjective:: Reports less diarrhea today. Reason For Visit: C DIFF COLITIS,SACRAL WOUND,CHRONIC KIDNEY DISEASE Physical Exam Vital Signs: Temp Pulse Resp BP Pulse Ox 97.3 F 135 H 16 135/71 H 95 07/16/17 12:00 07/16/17 12:00 07/16/17 12:00 07/16/17 12:00 07/16/17 12:00 Intake & Output 07/15/17 07/16/17 07/17/17 06:59 06:59 06:59 Intake Total 952 1220 Output Total 1100 3000 Balance -148 1220 -3000 Weight 89 kg 91.4 kg General appearance: PRESENT: no acute distress Eye exam: PRESENT: conjunctiva pink. ABSENT: scleral icterus Mouth exam: PRESENT: moist, tongue midline Neck exam: ABSENT: JVD Respiratory exam: PRESENT: clear to auscultation rose marie. ABSENT: rales, rhonchi, wheezes Cardiovascular exam: PRESENT: RRR. ABSENT: diastolic murmur, rubs, systolic murmur GI/Abdominal exam: PRESENT: normal bowel sounds, soft, tenderness. ABSENT: distended, guarding, mass, organolmegaly, rebound Extremities exam: ABSENT: calf tenderness, clubbing, pedal edema Neurological exam: PRESENT: alert, awake, oriented to person, oriented to place , oriented to time, oriented to situation, CN II-XII grossly intact. ABSENT: motor sensory deficit Psychiatric exam: PRESENT: appropriate affect Skin exam: PRESENT: dry, warm, other - Dressing in place on the sacrum. ABSENT : cyanosis, rash Results Laboratory Results: 07/16/17 04:08 07/16/17 04:08 07/16/17 07/16/17 04:08 04:08 WBC 9.0 RBC 3.46 L Hgb 9.3 L Hct 30.0 L MCV 87 MCH 27.0 MCHC 31.2 L RDW 18.0 H Plt Count 201 Sodium 131.7 L Potassium 3.7 Chloride 95 L Carbon Dioxide 28 Anion Gap 9 BUN 17 Creatinine 1.89 H Est GFR ( Amer) 31 L Est GFR (Non-Af Amer) 26 L Glucose 120 H Calcium 9.0 07/11/17 09:30 Blood Blood Culture - Final NO GROWTH IN 5 DAYS 07/07/17 07/07/17 17:38 23:12 Troponin I 0.043 0.049 Impressions: Chest X-Ray 07/07/17 00:00 IMPRESSION: LOW LUNG VOLUMES WITH FAINT BASILAR ATELECTASIS/ INFILTRATE AND SMALL PLEURAL EFFUSIONS. CARDIOMEGALY. Abdomen X-Ray 07/07/17 10:29 IMPRESSION: As above. Diminished aeration particularly in the left lower lobe. Abdomen/Pelvis CT 07/07/17 14:27 IMPRESSION: There is an apparent lytic process involving the superior endplate of the T12 vertebra and inferior endplate of the T11 vertebra which was not present on the previous study. The appearance would suggest a discitis. MRI may be of value for further evaluation. Other findings as noted above Assessment & Plan - Diagnosis (1) C. difficile colitis Is this a current diagnosis for this admission?: Yes Plan: The patient is on oral vancomycin and is slowly improving. Does have some complaints of abdominal pain. Nursing staff reports that the number bowel movements have slowed slightly 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 Is this a current diagnosis for this admission?: Yes Plan: Stage V chronic renal failure. Patient does dialysis on Wednesdays and Fridays. (3) Discitis of lumbar region Is this a current diagnosis for this admission?: Yes Plan: The findings were incidental on CT scan. Continue with IV nafcillin. (4) MSSA (methicillin susceptible Staphylococcus aureus) infection Is this a current diagnosis for this admission?: Yes Plan: Continue with IV nafcillin for 14 days total. (5) Anemia in chronic kidney disease Is this a current diagnosis for this admission?: Yes (6) CHF (congestive heart failure) Qualifiers: Congestive heart failure type: combined Congestive heart failure chronicity : chronic Qualified Code(s): I50.42 - Chronic combined systolic (congestive) and diastolic (congestive) heart failure Is this a current diagnosis for this admission?: Yes Plan: Patient is currently euvolemic. (7) DNR (do not resuscitate) Is this a current diagnosis for this admission?: Yes Plan: Patient's family request for her to be DO NOT RESUSCITATE. (8) Diabetes mellitus type 2 in obese Is this a current diagnosis for this admission?: Yes Plan: Continue with sliding scale insulin. (9) Rheumatoid arthritis Qualifiers: Rheumatoid arthritis location: multiple sites Rheumatoid factor presence: unspecified presence Qualified Code(s): M06.9 - Rheumatoid arthritis, unspecified Is this a current diagnosis for this admission?: Yes - Time Time Spent with patient: 25-34 minutes - Inpatient Certification Medical Necessity: Need for IV Antibiotics
[2017-07-16] MEDS: ATORVASTATIN CALCIUM 20 MG TABLET PO SCH (22:49)
[2017-07-17] MEDS: VANCOMYCIN HCL INJ 500 MG VIAL PO SCH ×5 (00:54→23:46)
[2017-07-17] MEDS: NAFCILLIN SODIUM 1 GM in DEXTROSE 5%-WATER 50 ML IV SCH ×6 (02:35→22:12)
[2017-07-17] MEDS: OXYCODONE HCL IR 5 MG TABLET PO PRN ×3 (02:37→19:55)
[2017-07-17] MEDS: HEPARIN SOD (PORCINE) 5,000 UNIT/ML 1 ML SYRINGE SUBCUT SCH ×3 (05:24→22:12)
[2017-07-17 07:39] LABS: ANION GAP 7 (5-19); BLOOD UREA NITROGEN 10 mg/dL (7-20); CARBON DIOXIDE 33 mmol/L (22-30); CHLORIDE 96 mmol/L (98-107); GLUCOSE 147 mg/dL (75-110); POTASSIUM 3.3 mmol/L (3.6-5.0); SODIUM 135.7 mmol/L (137-145)
[2017-07-17] MEDS: ACETAMINOPHEN 325 MG TABLET PO PRN (08:11)
[2017-07-17] MEDS: LOSARTAN POTASSIUM 50 MG TABLET PO SCH (09:51)
[2017-07-17] MEDS: CALCIUM ACETATE 667 MG CAPSULE PO SCH (09:51)
[2017-07-17] MEDS: CINACALCET HCL 30 MG TABLET PO SCH (09:51)
[2017-07-17] MEDS: CYPROHEPTADINE HCL 4 MG TABLET PO SCH (09:52)
--- NOTE | 2017-07-17 10:29 | PDOC PROGRESS REPORT ---
Subjective Progress Note for:: 07/17/17 Subjective:: She reports that she is having less diarrhea today. Also denies any abdominal pain today. Reason For Visit: C DIFF COLITIS,SACRAL WOUND,CHRONIC KIDNEY DISEASE Physical Exam Vital Signs: Temp Pulse Resp BP Pulse Ox 97.8 F 110 H 16 129/68 H 96 07/17/17 07:26 07/17/17 07:26 07/17/17 07:26 07/17/17 07:26 07/17/17 07:26 Intake & Output 07/16/17 07/17/17 07/18/17 06:59 06:59 06:59 Intake Total 1220 826 Output Total 3000 Balance 1220 -2174 Weight 91.4 kg 89.7 kg General appearance: PRESENT: no acute distress Eye exam: PRESENT: conjunctiva pink. ABSENT: scleral icterus Mouth exam: PRESENT: moist, tongue midline Neck exam: ABSENT: JVD Respiratory exam: PRESENT: clear to auscultation rose marie. ABSENT: rales, rhonchi, wheezes Cardiovascular exam: PRESENT: RRR. ABSENT: diastolic murmur, rubs, systolic murmur GI/Abdominal exam: PRESENT: normal bowel sounds, soft. ABSENT: distended, guarding, mass, organolmegaly, rebound, tenderness Extremities exam: ABSENT: calf tenderness, clubbing, pedal edema Neurological exam: PRESENT: alert, awake, oriented to person, oriented to place , oriented to time, oriented to situation, CN II-XII grossly intact. ABSENT: motor sensory deficit Psychiatric exam: PRESENT: appropriate affect Skin exam: PRESENT: other - Dressing in place on the sacrum. Results Laboratory Results: 07/16/17 04:08 07/17/17 06:55 07/17/17 06:55 Sodium 135.7 L Potassium 3.3 L Chloride 96 L Carbon Dioxide 33 H Anion Gap 7 BUN 10 Creatinine 1.61 H Est GFR ( Amer) 37 L Est GFR (Non-Af Amer) 31 L Glucose 147 H Calcium 9.0 07/11/17 09:30 Blood Blood Culture - Final NO GROWTH IN 5 DAYS 07/07/17 07/07/17 17:38 23:12 Troponin I 0.043 0.049 Impressions: Chest X-Ray 07/07/17 00:00 IMPRESSION: LOW LUNG VOLUMES WITH FAINT BASILAR ATELECTASIS/ INFILTRATE AND SMALL PLEURAL EFFUSIONS. CARDIOMEGALY. Abdomen X-Ray 07/07/17 10:29 IMPRESSION: As above. Diminished aeration particularly in the left lower lobe. Abdomen/Pelvis CT 07/07/17 14:27 IMPRESSION: There is an apparent lytic process involving the superior endplate of the T12 vertebra and inferior endplate of the T11 vertebra which was not present on the previous study. The appearance would suggest a discitis. MRI may be of value for further evaluation. Other findings as noted above Assessment & Plan - Diagnosis (1) C. difficile colitis Is this a current diagnosis for this admission?: Yes Plan: The patient is on oral vancomycin and is slowly improving. Is having less diarrhea now. 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 Patient does dialysis on Wednesdays and Fridays. (3) Discitis of lumbar region Is this a current diagnosis for this admission?: Yes Plan: The findings were incidental on CT scan. Continue with IV nafcillin. (4) MSSA (methicillin susceptible Staphylococcus aureus) infection Is this a current diagnosis for this admission?: Yes Plan: Continue with IV antibiotics for 14 days total. Last day of antibiotics will be July 21 (5) Anemia in chronic kidney disease Is this a current diagnosis for this admission?: Yes (6) CHF (congestive heart failure) Qualifiers: Congestive heart failure type: combined Congestive heart failure chronicity : chronic Qualified Code(s): I50.42 - Chronic combined systolic (congestive) and diastolic (congestive) heart failure Is this a current diagnosis for this admission?: Yes Plan: Patient is currently euvolemic. (7) DNR (do not resuscitate) Is this a current diagnosis for this admission?: Yes Plan: Patient's family request for her to be DO NOT RESUSCITATE. (8) Diabetes mellitus type 2 in obese Is this a current diagnosis for this admission?: Yes Plan: Continue with sliding scale insulin. (9) Rheumatoid arthritis Qualifiers: Rheumatoid arthritis location: multiple sites Rheumatoid factor presence: unspecified presence Qualified Code(s): M06.9 - Rheumatoid arthritis, unspecified Is this a current diagnosis for this admission?: Yes - Time Time Spent with patient: 25-34 minutes
[2017-07-17] MEDS: ATORVASTATIN CALCIUM 20 MG TABLET PO SCH (22:12)
[2017-07-18] MEDS: NAFCILLIN SODIUM 1 GM in DEXTROSE 5%-WATER 50 ML IV SCH ×6 (01:59→21:49)
[2017-07-18] MEDS: OXYCODONE HCL IR 5 MG TABLET PO PRN ×3 (04:39→20:23)
[2017-07-18] MEDS: HEPARIN SOD (PORCINE) 5,000 UNIT/ML 1 ML SYRINGE SUBCUT SCH ×3 (05:43→21:49)
[2017-07-18] MEDS: CYPROHEPTADINE HCL 4 MG TABLET PO SCH (10:12)
[2017-07-18] MEDS: CINACALCET HCL 30 MG TABLET PO SCH (10:12)
[2017-07-18] MEDS: CALCIUM ACETATE 667 MG CAPSULE PO SCH (10:13)
[2017-07-18] MEDS: LOSARTAN POTASSIUM 50 MG TABLET PO SCH (10:14)
[2017-07-18 10:17] LABS: ANION GAP 7 (5-19); BLOOD UREA NITROGEN 16 mg/dL (7-20); CALCIUM 9.5 mg/dL (8.4-10.2); CARBON DIOXIDE 30 mmol/L (22-30); CHLORIDE 95 mmol/L (98-107); GLUCOSE 131 mg/dL (75-110); POTASSIUM 3.5 mmol/L (3.6-5.0)
[2017-07-18] MEDS: VANCOMYCIN HCL INJ 500 MG VIAL PO SCH ×2 (12:37→17:15)
--- NOTE | 2017-07-18 12:52 | PDOC PROGRESS REPORT ---
Subjective Progress Note for:: 07/18/17 Subjective:: Complains of back pain. Reason For Visit: C DIFF COLITIS,SACRAL WOUND,CHRONIC KIDNEY DISEASE Physical Exam Vital Signs: Temp Pulse Resp BP Pulse Ox 98.3 F 113 H 20 149/82 H 96 07/18/17 11:43 07/18/17 11:43 07/18/17 11:43 07/18/17 11:43 07/18/17 11:43 Intake & Output 07/17/17 07/18/17 07/19/17 06:59 06:59 06:59 Intake Total 826 777 Output Total 3000 Balance -2174 777 Weight 89.7 kg 88.4 kg General appearance: PRESENT: no acute distress Eye exam: PRESENT: conjunctiva pink. ABSENT: scleral icterus Mouth exam: PRESENT: moist, tongue midline Neck exam: ABSENT: JVD Respiratory exam: PRESENT: clear to auscultation rose marie. ABSENT: rales, rhonchi, wheezes Cardiovascular exam: PRESENT: RRR. ABSENT: diastolic murmur, rubs, systolic murmur GI/Abdominal exam: PRESENT: normal bowel sounds, soft. ABSENT: distended, guarding, mass, organolmegaly, rebound, tenderness Extremities exam: ABSENT: calf tenderness, clubbing, pedal edema Psychiatric exam: PRESENT: appropriate affect Skin exam: PRESENT: other - Dressing in place on the sacrum. Results Laboratory Results: 07/16/17 04:08 07/18/17 09:40 07/18/17 07/18/17 05:30 09:40 Sodium Cancelled 132.0 L Potassium Cancelled 3.5 L Chloride Cancelled 95 L Carbon Dioxide Cancelled 30 Anion Gap Cancelled 7 BUN Cancelled 16 Creatinine Cancelled 2.22 H Est GFR ( Amer) Cancelled 26 L Est GFR (Non-Af Amer) Cancelled 21 L Glucose Cancelled 131 H Calcium Cancelled 9.5 07/07/17 07/07/17 17:38 23:12 Troponin I 0.043 0.049 Impressions: Chest X-Ray 07/07/17 00:00 IMPRESSION: LOW LUNG VOLUMES WITH FAINT BASILAR ATELECTASIS/ INFILTRATE AND SMALL PLEURAL EFFUSIONS. CARDIOMEGALY. Abdomen X-Ray 07/07/17 10:29 IMPRESSION: As above. Diminished aeration particularly in the left lower lobe. Abdomen/Pelvis CT 07/07/17 14:27 IMPRESSION: There is an apparent lytic process involving the superior endplate of the T12 vertebra and inferior endplate of the T11 vertebra which was not present on the previous study. The appearance would suggest a discitis. MRI may be of value for further evaluation. Other findings as noted above Assessment & Plan - Diagnosis (1) C. difficile colitis Is this a current diagnosis for this admission?: Yes Plan: The patient is on oral vancomycin and is slowly improving. Is having less diarrhea now. 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 Patient does dialysis on Wednesdays and Fridays. (3) Discitis of lumbar region Is this a current diagnosis for this admission?: Yes Plan: The findings were incidental on CT scan. Continue with IV nafcillin. (4) MSSA (methicillin susceptible Staphylococcus aureus) infection Is this a current diagnosis for this admission?: Yes Plan: Continue with IV antibiotics for 14 days total. Last day of antibiotics will be July 21 (5) Anemia in chronic kidney disease Is this a current diagnosis for this admission?: Yes (6) CHF (congestive heart failure) Qualifiers: Congestive heart failure type: combined Congestive heart failure chronicity : chronic Qualified Code(s): I50.42 - Chronic combined systolic (congestive) and diastolic (congestive) heart failure Is this a current diagnosis for this admission?: Yes Plan: Patient is currently euvolemic. (7) DNR (do not resuscitate) Is this a current diagnosis for this admission?: Yes Plan: Patient's family request for her to be DO NOT RESUSCITATE. (8) Diabetes mellitus type 2 in obese Is this a current diagnosis for this admission?: Yes Plan: Continue with sliding scale insulin. (9) Rheumatoid arthritis Qualifiers: Rheumatoid arthritis location: multiple sites Rheumatoid factor presence: unspecified presence Qualified Code(s): M06.9 - Rheumatoid arthritis, unspecified Is this a current diagnosis for this admission?: Yes - Time Time Spent with patient: 25-34 minutes
[2017-07-18] MEDS: ATORVASTATIN CALCIUM 20 MG TABLET PO SCH (21:49)
[2017-07-19] MEDS: VANCOMYCIN HCL INJ 500 MG VIAL PO SCH ×4 (00:11→17:28)
[2017-07-19] MEDS: OXYCODONE HCL IR 5 MG TABLET PO PRN ×2 (03:07→17:27)
[2017-07-19] MEDS: NAFCILLIN SODIUM 1 GM in DEXTROSE 5%-WATER 50 ML IV SCH ×6 (03:07→21:53)
[2017-07-19] MEDS: HEPARIN SOD (PORCINE) 5,000 UNIT/ML 1 ML SYRINGE SUBCUT SCH ×3 (05:56→21:53)
[2017-07-19 08:15] LABS: HEMATOCRIT 34.6 % (36.0-47.0); MEAN CORPUSCULAR HEMOGLOBIN 27.2 pg (27.0-33.4); MEAN CORPUSCULAR HGB CONC 31.6 g/dL (32.0-36.0); MEAN CORPUSCULAR VOLUME 86 fl (80-97); PLATELET COUNT 173 10^3/uL (150-450); RED BLOOD COUNT 4.02 10^6/uL (3.72-5.28); RED CELL DISTRIBUTION WIDTH 17.7 % (11.5-14.0); WHITE BLOOD COUNT 6.9 10^3/uL (4.0-10.5)
[2017-07-19 08:49] LABS: ABSOLUTE MONOCYTES # (MANUAL) 0.5 10^3/uL (0.1-1.4); ABSOLUTE NEUTROPHILS# (MANUAL) 5.2 10^3/uL (1.7-8.2); BASOPHILS % (MANUAL) 0 % (0-2); EOSINOPHILS % (MANUAL) 4 % (0-6); LYMPHOCYTES % (MANUAL) 14 % (13-45); MONOCYTES % (MANUAL) 7 % (3-13); SEGMENTED NEUTROPHILS % (MAN) 75 % (42-78); TOTAL CELLS COUNTED 100
[2017-07-19 08:51] LABS: ANISOCYTOSIS 1+; OVALOCYTES 1+; PLATELET COMMENT ADEQUATE; POIKILOCYTOSIS 1+; POLYCHROMASIA 1+; TOXIC VACUOLATION PRESENT
[2017-07-19] MEDS: CALCIUM ACETATE 667 MG CAPSULE PO SCH (10:05)
[2017-07-19] MEDS: CINACALCET HCL 30 MG TABLET PO SCH (10:05)
[2017-07-19] MEDS: CYPROHEPTADINE HCL 4 MG TABLET PO SCH (10:05)
[2017-07-19 11:06] LABS: ANION GAP 6 (5-19); CALCIUM 9.1 mg/dL (8.4-10.2); CARBON DIOXIDE 30 mmol/L (22-30); CHLORIDE 94 mmol/L (98-107); GLUCOSE 126 mg/dL (75-110); SODIUM 129.9 mmol/L (137-145)
[2017-07-19 11:11] LABS: BLOOD UREA NITROGEN 20 mg/dL (7-20); POTASSIUM 3.9 mmol/L (3.6-5.0)
[2017-07-19] MEDS: LOSARTAN POTASSIUM 50 MG TABLET PO SCH (11:48)
--- NOTE | 2017-07-19 13:31 | PDOC PROGRESS REPORT ---
Subjective Progress Note for:: 07/19/17 Reason For Visit: This patient was seen on dialysis. today.She is undergoing dialysis without any issues. Denies any chest pains,dyspnea, abdominal pains.Improved diarrhea. Physical Exam Vital Signs: Temp Pulse Resp BP Pulse Ox 98.2 F 113 H 19 146/77 H 97 07/19/17 08:02 07/19/17 08:02 07/19/17 08:02 07/19/17 08:02 07/19/17 08:02 Intake & Output 07/18/17 07/19/17 07/20/17 06:59 06:59 06:59 Intake Total 777 435 Balance 777 435 Weight 88.4 kg 90 kg General appearance: PRESENT: no acute distress Respiratory exam: PRESENT: clear to auscultation rose marie, symmetrical. ABSENT: crackles Cardiovascular exam: PRESENT: RRR, +S1, +S2 GI/Abdominal exam: PRESENT: normal bowel sounds, soft. ABSENT: organomegaly, tenderness Extremities exam: PRESENT: pedal edema Neurological exam: PRESENT: oriented to person, oriented to place Results Laboratory Results: 07/19/17 07:43 07/19/17 10:37 07/19/17 07/19/17 07/19/17 07:43 07:43 10:37 WBC 6.9 RBC 4.02 Hgb 11.0 L Hct 34.6 L MCV 86 MCH 27.2 MCHC 31.6 L RDW 17.7 H Plt Count 173 Seg Neutrophils % Not Reportable Lymphocytes % Not Reportable Monocytes % Not Reportable Eosinophils % Not Reportable Basophils % Not Reportable Absolute Neutrophils Not Reportable Absolute Lymphocytes Not Reportable Absolute Monocytes Not Reportable Absolute Eosinophils Not Reportable Absolute Basophils Not Reportable Sodium Cancelled 129.9 L Potassium Cancelled 3.9 Chloride Cancelled 94 L Carbon Dioxide Cancelled 30 Anion Gap Cancelled 6 BUN Cancelled 20 Creatinine Cancelled 2.60 H Est GFR ( Amer) Cancelled 21 L Est GFR (Non-Af Amer) Cancelled 18 L Glucose Cancelled 126 H Calcium Cancelled 9.1 07/07/17 07/07/17 17:38 23:12 Troponin I 0.043 0.049 Impressions: Chest X-Ray 07/07/17 00:00 IMPRESSION: LOW LUNG VOLUMES WITH FAINT BASILAR ATELECTASIS/ INFILTRATE AND SMALL PLEURAL EFFUSIONS. CARDIOMEGALY. Abdomen X-Ray 07/07/17 10:29 IMPRESSION: As above. Diminished aeration particularly in the left lower lobe. Abdomen/Pelvis CT 07/07/17 14:27 IMPRESSION: There is an apparent lytic process involving the superior endplate of the T12 vertebra and inferior endplate of the T11 vertebra which was not present on the previous study. The appearance would suggest a discitis. MRI may be of value for further evaluation. Other findings as noted above Assessment & Plan - Diagnosis (1) End stage renal disease on dialysis Plan: Seen on HD which is being supervised to ensure a safe and smooth procedure. VS are stable Undergoing HD without any issues. Plan to remove 3 litres as tolerated . Orders were discussed with the treating RN. (2) C. difficile colitis Is this a current diagnosis for this admission?: Yes Plan: On po Vanc. As per hospitalist. (3) Hypokalemia Plan: Resolved.Monitor. (4) Anemia in chronic kidney disease Is this a current diagnosis for this admission?: Yes Plan: S/P transfusion. Adjust EPO. (5) Diabetes mellitus type 2 in obese Is this a current diagnosis for this admission?: Yes Plan: Adv tight control. (6) MSSA (methicillin susceptible Staphylococcus aureus) infection Is this a current diagnosis for this admission?: Yes Plan: On antibiotics as per hospitalist. (7) Sacral decubitus ulcer, stage II Is this a current diagnosis for this admission?: Yes (8) Hyponatremia Plan: Adv on fluids. Need to put fluid restriction to 1 l. See response to dialysis.Monitor.
[2017-07-19] MEDS: EPOETIN ALFA 10,000 UNIT in SYRINGE, DISPOSABLE, 1 EACH IV SCH (14:48)
--- NOTE | 2017-07-19 16:47 | PDOC PROGRESS REPORT ---
Subjective Progress Note for:: 07/19/17 Subjective:: Reports her abdominal pain is improved. She is an 82-year-old female who presented with abdominal pain and was presumed to have C. difficile colitis which was confirmed with positive C. difficile studies. She was started on oral vancomycin and this has slowly improved. She also was noted to have pneumonia and was started on vancomycin and Zosyn. Her blood cultures have grown out methicillin sensitive staph aureus. She has been treated with nafcillin now. She also has chronic renal failure and has been doing dialysis on Wednesdays and Fridays. Reason For Visit: C DIFF COLITIS,SACRAL WOUND,CHRONIC KIDNEY DISEASE Physical Exam Vital Signs: Temp Pulse Resp BP Pulse Ox 98.1 F 97 18 130/67 H 95 07/19/17 11:33 07/19/17 11:33 07/19/17 11:33 07/19/17 11:33 07/19/17 11:33 Intake & Output 07/18/17 07/19/17 07/20/17 06:59 06:59 06:59 Intake Total 777 435 Balance 777 435 Weight 88.4 kg 90 kg General appearance: PRESENT: no acute distress Eye exam: PRESENT: conjunctiva pink Mouth exam: PRESENT: moist, tongue midline Neck exam: ABSENT: JVD Respiratory exam: PRESENT: clear to auscultation rose marie. ABSENT: rales, rhonchi, wheezes Cardiovascular exam: PRESENT: RRR, systolic murmur. ABSENT: diastolic murmur, rubs GI/Abdominal exam: PRESENT: normal bowel sounds, soft. ABSENT: distended, guarding, mass, organolmegaly, rebound, tenderness Extremities exam: ABSENT: calf tenderness, clubbing, pedal edema Neurological exam: PRESENT: alert, awake, oriented to person, oriented to place , oriented to time, oriented to situation, CN II-XII grossly intact. ABSENT: motor sensory deficit Psychiatric exam: PRESENT: flat affect Skin exam: PRESENT: other - Dressing in place on the sacrum. Results Laboratory Results: 07/19/17 07:43 07/19/17 10:37 07/19/17 07/19/17 07/19/17 07:43 07:43 10:37 WBC 6.9 RBC 4.02 Hgb 11.0 L Hct 34.6 L MCV 86 MCH 27.2 MCHC 31.6 L RDW 17.7 H Plt Count 173 Seg Neutrophils % Not Reportable Lymphocytes % Not Reportable Monocytes % Not Reportable Eosinophils % Not Reportable Basophils % Not Reportable Absolute Neutrophils Not Reportable Absolute Lymphocytes Not Reportable Absolute Monocytes Not Reportable Absolute Eosinophils Not Reportable Absolute Basophils Not Reportable Sodium Cancelled 129.9 L Potassium Cancelled 3.9 Chloride Cancelled 94 L Carbon Dioxide Cancelled 30 Anion Gap Cancelled 6 BUN Cancelled 20 Creatinine Cancelled 2.60 H Est GFR ( Amer) Cancelled 21 L Est GFR (Non-Af Amer) Cancelled 18 L Glucose Cancelled 126 H Calcium Cancelled 9.1 07/07/17 07/07/17 17:38 23:12 Troponin I 0.043 0.049 Impressions: Chest X-Ray 07/07/17 00:00 IMPRESSION: LOW LUNG VOLUMES WITH FAINT BASILAR ATELECTASIS/ INFILTRATE AND SMALL PLEURAL EFFUSIONS. CARDIOMEGALY. Abdomen X-Ray 07/07/17 10:29 IMPRESSION: As above. Diminished aeration particularly in the left lower lobe. Abdomen/Pelvis CT 07/07/17 14:27 IMPRESSION: There is an apparent lytic process involving the superior endplate of the T12 vertebra and inferior endplate of the T11 vertebra which was not present on the previous study. The appearance would suggest a discitis. MRI may be of value for further evaluation. Other findings as noted above Assessment & Plan - Diagnosis (1) C. difficile colitis Is this a current diagnosis for this admission?: Yes Plan: The patient is on oral vancomycin and is slowly improving. Is having less diarrhea now. 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 Patient does dialysis on Wednesdays and Fridays. (3) Discitis of lumbar region Is this a current diagnosis for this admission?: Yes Plan: The findings were incidental on CT scan. Continue with IV nafcillin. (4) MSSA (methicillin susceptible Staphylococcus aureus) infection Is this a current diagnosis for this admission?: Yes Plan: Continue with IV antibiotics for 14 days total. Last day of antibiotics will be July 21 (5) Anemia in chronic kidney disease Is this a current diagnosis for this admission?: Yes (6) CHF (congestive heart failure) Qualifiers: Congestive heart failure type: combined Congestive heart failure chronicity : chronic Qualified Code(s): I50.42 - Chronic combined systolic (congestive) and diastolic (congestive) heart failure Is this a current diagnosis for this admission?: Yes Plan: Patient is currently euvolemic. (7) DNR (do not resuscitate) Is this a current diagnosis for this admission?: Yes Plan: Patient's family request for her to be DO NOT RESUSCITATE. (8) Diabetes mellitus type 2 in obese Is this a current diagnosis for this admission?: Yes Plan: Continue with sliding scale insulin. (9) Rheumatoid arthritis Qualifiers: Rheumatoid arthritis location: multiple sites Rheumatoid factor presence: unspecified presence Qualified Code(s): M06.9 - Rheumatoid arthritis, unspecified Is this a current diagnosis for this admission?: Yes - Time Time Spent with patient: 25-34 minutes - Inpatient Certification Medical Necessity: Need for IV Antibiotics
[2017-07-19] MEDS: ATORVASTATIN CALCIUM 20 MG TABLET PO SCH (21:53)
[2017-07-20] MEDS: VANCOMYCIN HCL INJ 500 MG VIAL PO SCH ×5 (00:53→23:06)
[2017-07-20] MEDS: NAFCILLIN SODIUM 1 GM in DEXTROSE 5%-WATER 50 ML IV SCH ×6 (03:38→21:59)
[2017-07-20] MEDS: HEPARIN SOD (PORCINE) 5,000 UNIT/ML 1 ML SYRINGE SUBCUT SCH ×3 (06:31→21:59)
[2017-07-20 06:58] LABS: ABSOLUTE BASOPHILS # (AUTO) 0.1 10^3/uL (0.0-0.2); ABSOLUTE EOSINOPHILS # (AUTO) 0.1 10^3/uL (0.0-0.6); ABSOLUTE MONOCYTES (AUTO) 0.6 10^3/uL (0.1-1.4); ABSOLUTE NEUT (AUTO) 5.2 10^3/uL (1.7-8.2); BASOPHILS % (AUTO) 0.8 % (0-2); EOSINOPHILS % (AUTO) 1.9 % (0-6); HEMATOCRIT 31.4 % (36.0-47.0); HEMOGLOBIN 9.8 g/dL (12.0-15.5); LYMPHOCYTES % (AUTO) 14.5 % (13-45); MEAN CORPUSCULAR HEMOGLOBIN 27.2 pg (27.0-33.4); MEAN CORPUSCULAR HGB CONC 31.1 g/dL (32.0-36.0); MEAN CORPUSCULAR VOLUME 87 fl (80-97); PLATELET COUNT 184 10^3/uL (150-450); RED CELL DISTRIBUTION WIDTH 18.2 % (11.5-14.0); SEGMENTED NEUTROPHILS % (AUTO) 74.8 % (42-78); TOTAL CELLS COUNTED % (AUTO) 100 %; WHITE BLOOD COUNT 6.9 10^3/uL (4.0-10.5)
[2017-07-20 07:02] LABS: ANION GAP 9 (5-19); BLOOD UREA NITROGEN 11 mg/dL (7-20); CALCIUM 8.8 mg/dL (8.4-10.2); CARBON DIOXIDE 30 mmol/L (22-30); CHLORIDE 96 mmol/L (98-107); GLUCOSE 94 mg/dL (75-110); POTASSIUM 3.2 mmol/L (3.6-5.0); SODIUM 134.5 mmol/L (137-145)
[2017-07-20] MEDS: CYPROHEPTADINE HCL 4 MG TABLET PO SCH (10:24)
[2017-07-20] MEDS: CINACALCET HCL 30 MG TABLET PO SCH (10:24)
[2017-07-20] MEDS: CALCIUM ACETATE 667 MG CAPSULE PO SCH (10:25)
[2017-07-20] MEDS: LOSARTAN POTASSIUM 50 MG TABLET PO SCH (10:25)
[2017-07-20] MEDS: OXYCODONE HCL IR 5 MG TABLET PO PRN ×2 (14:56→21:59)
--- NOTE | 2017-07-20 17:44 | PDOC PROGRESS REPORT ---
Subjective Progress Note for:: 07/20/17 Subjective:: No complaints. Resting. No diarrhea. Reason For Visit: Reports her abdominal pain is improved. She is an 82-year-old female who presented with abdominal pain and was presumed to have C. difficile colitis which was confirmed with positive C. difficile studies. She was started on oral vancomycin and this has slowly improved. She also was noted to have pneumonia and was started on vancomycin and Zosyn. Her blood cultures have grown out methicillin sensitive staph aureus. She has been treated with nafcillin now. She also has chronic renal failure and has been doing dialysis on Wednesdays and Fridays. Physical Exam Vital Signs: Temp Pulse Resp BP Pulse Ox 98.7 F 129 H 16 149/89 H 99 07/20/17 14:50 07/20/17 14:50 07/20/17 10:35 07/20/17 14:50 07/20/17 14:50 Intake & Output 07/19/17 07/20/17 07/21/17 06:59 06:59 06:59 Intake Total 435 606 100 Output Total 3200 Balance 435 -2594 100 Weight 90 kg 89.7 kg General appearance: PRESENT: no acute distress, well-developed, well-nourished Head exam: PRESENT: atraumatic, normocephalic Eye exam: PRESENT: conjunctival injection, EOMI, PERRLA Respiratory exam: PRESENT: clear to auscultation rose marie. ABSENT: rales, rhonchi, wheezes Cardiovascular exam: PRESENT: RRR. ABSENT: diastolic murmur, rubs, systolic murmur GI/Abdominal exam: PRESENT: normal bowel sounds, soft. ABSENT: distended, guarding, mass, organolmegaly, rebound, tenderness Neurological exam: PRESENT: alert, awake, oriented to person, oriented to place , oriented to time, oriented to situation, CN II-XII grossly intact. ABSENT: motor sensory deficit Psychiatric exam: PRESENT: appropriate affect, normal mood. ABSENT: homicidal ideation, suicidal ideation Results Laboratory Results: 07/20/17 06:30 07/20/17 06:30 07/20/17 07/20/17 07/20/17 06:30 06:30 06:30 WBC 6.9 RBC 3.60 L Hgb 9.8 L Hct 31.4 L MCV 87 MCH 27.2 MCHC 31.1 L RDW 18.2 H Plt Count 184 Seg Neutrophils % 74.8 Lymphocytes % 14.5 Monocytes % 8.0 Eosinophils % 1.9 Basophils % 0.8 Absolute Neutrophils 5.2 Absolute Lymphocytes 1.0 Absolute Monocytes 0.6 Absolute Eosinophils 0.1 Absolute Basophils 0.1 Sodium 134.5 L Potassium 3.2 L Chloride 96 L Carbon Dioxide 30 Anion Gap 9 BUN 11 Creatinine 1.84 H Est GFR ( Amer) 32 L Est GFR (Non-Af Amer) 26 L Glucose 94 Serum Osmolality 275 Calcium 8.8 07/07/17 07/07/17 17:38 23:12 Troponin I 0.043 0.049 Impressions: Chest X-Ray 07/07/17 00:00 IMPRESSION: LOW LUNG VOLUMES WITH FAINT BASILAR ATELECTASIS/ INFILTRATE AND SMALL PLEURAL EFFUSIONS. CARDIOMEGALY. Abdomen X-Ray 07/07/17 10:29 IMPRESSION: As above. Diminished aeration particularly in the left lower lobe. Abdomen/Pelvis CT 07/07/17 14:27 IMPRESSION: There is an apparent lytic process involving the superior endplate of the T12 vertebra and inferior endplate of the T11 vertebra which was not present on the previous study. The appearance would suggest a discitis. MRI may be of value for further evaluation. Other findings as noted above Assessment & Plan - Diagnosis (1) C. difficile colitis Is this a current diagnosis for this admission?: Yes Plan: She is on oral vancomycin. Her diarrhea has essentially resolved. 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 Plan: Dialysis Wednesday, Wednesday, and Fridays. (3) End stage renal disease on dialysis Is this a current diagnosis for this admission?: Yes Plan: Dialysis Wednesday, Wednesday, and Fridays (4) MSSA (methicillin susceptible Staphylococcus aureus) infection Is this a current diagnosis for this admission?: Yes Plan: Continue nafcillin for total of 14 days. Last dose will be July 21. (5) Discitis of lumbar region Is this a current diagnosis for this admission?: Yes Plan: Findings were incidental CT scan. She is on nafcillin. (6) Anemia in chronic kidney disease Is this a current diagnosis for this admission?: Yes (7) DNR (do not resuscitate) Is this a current diagnosis for this admission?: Yes (8) Diabetes mellitus type 2 in obese Is this a current diagnosis for this admission?: Yes Plan: Continue sliding scale. (9) Rheumatoid arthritis Qualifiers: Rheumatoid arthritis location: multiple sites Rheumatoid factor presence: unspecified presence Qualified Code(s): M06.9 - Rheumatoid arthritis, unspecified Is this a current diagnosis for this admission?: Yes (10) Sacral decubitus ulcer, stage II Is this a current diagnosis for this admission?: Yes Plan: Continue local wound care. - Time Time Spent with patient: 25-34 minutes Medications reviewed and adjusted accordingly: Yes Anticipated discharge: Home - Inpatient Certification Medical Necessity: Need for IV Antibiotics
[2017-07-20] MEDS ORDERED: POTASSIUM CHLORIDE 10 MEQ TABLET.SA PO ONE (18:30)
--- NOTE | 2017-07-20 19:14 | PDOC PROGRESS REPORT ---
Subjective Progress Note for:: 07/20/17 Subjective:: At the time of the exam the patient was laying comfortable in her bed. She denies diarrhea, but does still have the occassional abdominal pains. She denies chest pain, SOB, fevers or chills. Reason For Visit: C DIFF COLITIS,SACRAL WOUND,CHRONIC KIDNEY DISEASE Physical Exam Vital Signs: Temp Pulse Resp BP Pulse Ox 98.7 F 129 H 16 149/89 H 99 07/20/17 14:50 07/20/17 14:50 07/20/17 10:35 07/20/17 14:50 07/20/17 14:50 Intake & Output 07/19/17 07/20/17 07/21/17 06:59 06:59 06:59 Intake Total 435 606 590 Output Total 3200 Balance 435 -2704 590 Weight 90 kg 89.7 kg General appearance: PRESENT: no acute distress, well-developed, well-nourished Neck exam: PRESENT: JVD. ABSENT: full ROM Respiratory exam: PRESENT: clear to auscultation rose marie. ABSENT: accessory muscle use, chest wall tenderness, crackles, rales, rhonchi, wheezes Cardiovascular exam: PRESENT: RRR, +S1, +S2 GI/Abdominal exam: PRESENT: normal bowel sounds, soft. ABSENT: organomegaly, tenderness Extremities exam: ABSENT: pedal edema, tenderness Musculoskeletal exam: PRESENT: normal inspection. ABSENT: tenderness Neurological exam: PRESENT: alert, awake, oriented to person, oriented to place. ABSENT: oriented to time, oriented to situation Skin exam: PRESENT: dry, rash Results Laboratory Results: 07/20/17 06:30 07/20/17 06:30 07/20/17 07/20/17 07/20/17 06:30 06:30 06:30 WBC 6.9 RBC 3.60 L Hgb 9.8 L Hct 31.4 L MCV 87 MCH 27.2 MCHC 31.1 L RDW 18.2 H Plt Count 184 Seg Neutrophils % 74.8 Lymphocytes % 14.5 Monocytes % 8.0 Eosinophils % 1.9 Basophils % 0.8 Absolute Neutrophils 5.2 Absolute Lymphocytes 1.0 Absolute Monocytes 0.6 Absolute Eosinophils 0.1 Absolute Basophils 0.1 Sodium 134.5 L Potassium 3.2 L Chloride 96 L Carbon Dioxide 30 Anion Gap 9 BUN 11 Creatinine 1.84 H Est GFR ( Amer) 32 L Est GFR (Non-Af Amer) 26 L Glucose 94 Serum Osmolality 275 Calcium 8.8 07/07/17 07/07/17 17:38 23:12 Troponin I 0.043 0.049 Impressions: Chest X-Ray 07/07/17 00:00 IMPRESSION: LOW LUNG VOLUMES WITH FAINT BASILAR ATELECTASIS/ INFILTRATE AND SMALL PLEURAL EFFUSIONS. CARDIOMEGALY. Abdomen X-Ray 07/07/17 10:29 IMPRESSION: As above. Diminished aeration particularly in the left lower lobe. Abdomen/Pelvis CT 07/07/17 14:27 IMPRESSION: There is an apparent lytic process involving the superior endplate of the T12 vertebra and inferior endplate of the T11 vertebra which was not present on the previous study. The appearance would suggest a discitis. MRI may be of value for further evaluation. Other findings as noted above Assessment & Plan - Diagnosis (1) Hypokalemia Plan: Patient received 40mg of PO potassium today. Will set her up on daily potassium replacements (2) End stage renal disease on dialysis Is this a current diagnosis for this admission?: Yes Plan: Will do dialysis tomorrow. currently not she does not have a lot of fluid. (3) C. difficile colitis Is this a current diagnosis for this admission?: Yes Plan: still on PO vanc (4) Abdominal pain Qualifiers: Abdominal location: generalized Qualified Code(s): R10.84 - Generalized abdominal pain (5) Anemia in chronic kidney disease Is this a current diagnosis for this admission?: Yes Plan: will give epogen tomorrow during dialysis (6) Essential hypertension Plan: bp pressure is currently controlled. (7) Discitis of lumbar region Is this a current diagnosis for this admission?: Yes
--- NOTE | 2017-07-20 21:48 | Progress Note ---
Provider Note Provider Note: Palliative Care follow up visit 07/20/17 9:30 AM Patient resting in bed, continuing her treatment for C Diff colitis and septicemia. She has continued her dialysis while at the hospital. Mrs. Martin has been doing dialysis for 8 years and plans to continue. BS are clear and no cough noted Abd soft, but she says she does have some pain in lower abd bilaterally. SHe did not want pain meds as she said the pain subsides quickly, still cramping from the colitis. SHe denies pain elsewhere, but she says she is very tired and "lazy". She has not been able to participate with PT so I am not sure rehab at SNF could help her much. However , after she finishes her antibiotics and diarrhea continues to subside, she may feel more like doing some PT work. Daughter is not at hospital this AM, but I left her a note encouraging her to call me if any issues. Notes appreciated form senior media planner regarding bed applications at local facilities. Chart reviewed, labs reviewed, medicaitons reviewed. No new problems reported by nursing. Will follow.
[2017-07-20] MEDS: ATORVASTATIN CALCIUM 20 MG TABLET PO SCH (21:59)
[2017-07-21] MEDS: NAFCILLIN SODIUM 1 GM in DEXTROSE 5%-WATER 50 ML IV SCH ×5 (02:37→22:55)
[2017-07-21] MEDS ORDERED: EPOETIN ALFA 5,000 UNIT in SYRINGE, DISPOSABLE, 1 EACH IV PRN (05:00)
[2017-07-21] MEDS ORDERED: EPOETIN ALFA INJ 20000 UNIT/1 ML VIAL (RENAL) IV PRN (05:00)
[2017-07-21] MEDS: HEPARIN SOD (PORCINE) 5,000 UNIT/ML 1 ML SYRINGE SUBCUT SCH ×3 (05:25→22:55)
[2017-07-21] MEDS: VANCOMYCIN HCL INJ 500 MG VIAL PO SCH ×3 (05:29→18:30)
[2017-07-21 05:33] LABS: ABSOLUTE EOSINOPHILS # (AUTO) 0.1 10^3/uL (0.0-0.6); ABSOLUTE LYMPHOCYTES (AUTO) 0.8 10^3/uL (0.5-4.7); ABSOLUTE MONOCYTES (AUTO) 0.5 10^3/uL (0.1-1.4); ABSOLUTE NEUT (AUTO) 4.8 10^3/uL (1.7-8.2); BASOPHILS % (AUTO) 0.8 % (0-2); HEMATOCRIT 28.9 % (36.0-47.0); HEMOGLOBIN 9.2 g/dL (12.0-15.5); LYMPHOCYTES % (AUTO) 12.2 % (13-45); MEAN CORPUSCULAR HEMOGLOBIN 27.5 pg (27.0-33.4); MEAN CORPUSCULAR HGB CONC 31.8 g/dL (32.0-36.0); MEAN CORPUSCULAR VOLUME 87 fl (80-97); MONOCYTES % (AUTO) 8.2 % (3-13); PLATELET COUNT 207 10^3/uL (150-450); RED BLOOD COUNT 3.34 10^6/uL (3.72-5.28); RED CELL DISTRIBUTION WIDTH 18.1 % (11.5-14.0); SEGMENTED NEUTROPHILS % (AUTO) 76.8 % (42-78); TOTAL CELLS COUNTED % (AUTO) 100 %; WHITE BLOOD COUNT 6.3 10^3/uL (4.0-10.5)
[2017-07-21 06:03] LABS: ANION GAP 7 (5-19); BLOOD UREA NITROGEN 16 mg/dL (7-20); CALCIUM 8.6 mg/dL (8.4-10.2); CARBON DIOXIDE 30 mmol/L (22-30); CHLORIDE 96 mmol/L (98-107); GLUCOSE 109 mg/dL (75-110); SODIUM 133.4 mmol/L (137-145)
[2017-07-21] MEDS: OXYCODONE HCL IR 5 MG TABLET PO PRN ×2 (06:22→13:44)
[2017-07-21] MEDS ORDERED: POTASSIUM CHLORIDE 10 MEQ TABLET.SA PO SCH (10:00)
--- NOTE | 2017-07-21 11:07 | PDOC PROGRESS REPORT ---
Subjective Progress Note for:: 07/21/17 Reason For Visit: Seen today on dialysis.Undergoing dialysis without any issues.Denies any cheat pains, dyspnea. Physical Exam Vital Signs: Temp Pulse Resp BP Pulse Ox 97.9 F 61 12 105/55 L 100 07/21/17 08:00 07/21/17 08:00 07/21/17 08:00 07/21/17 08:00 07/21/17 08:00 Intake & Output 07/20/17 07/21/17 07/22/17 06:59 06:59 06:59 Intake Total 606 970 Output Total 3200 Balance -2594 970 Weight 89.7 kg 90.6 kg General appearance: PRESENT: no acute distress Respiratory exam: PRESENT: clear to auscultation rose marie. ABSENT: crackles, rhonchi Cardiovascular exam: PRESENT: RRR, +S1, +S2 GI/Abdominal exam: PRESENT: normal bowel sounds, soft. ABSENT: organomegaly, tenderness Extremities exam: PRESENT: +1 edema Neurological exam: PRESENT: awake, oriented to person, oriented to place Results Laboratory Results: 07/21/17 04:57 07/21/17 04:57 07/21/17 07/21/17 04:57 04:57 WBC 6.3 RBC 3.34 L Hgb 9.2 L Hct 28.9 L MCV 87 MCH 27.5 MCHC 31.8 L RDW 18.1 H Plt Count 207 Seg Neutrophils % 76.8 Lymphocytes % 12.2 L Monocytes % 8.2 Eosinophils % 2.0 Basophils % 0.8 Absolute Neutrophils 4.8 Absolute Lymphocytes 0.8 Absolute Monocytes 0.5 Absolute Eosinophils 0.1 Absolute Basophils 0.0 Sodium 133.4 L Potassium 4.0 Chloride 96 L Carbon Dioxide 30 Anion Gap 7 BUN 16 Creatinine 2.30 H Est GFR ( Amer) 25 L Est GFR (Non-Af Amer) 20 L Glucose 109 Calcium 8.6 07/07/17 07/07/17 17:38 23:12 Troponin I 0.043 0.049 Impressions: Chest X-Ray 07/07/17 00:00 IMPRESSION: LOW LUNG VOLUMES WITH FAINT BASILAR ATELECTASIS/ INFILTRATE AND SMALL PLEURAL EFFUSIONS. CARDIOMEGALY. Abdomen X-Ray 07/07/17 10:29 IMPRESSION: As above. Diminished aeration particularly in the left lower lobe. Abdomen/Pelvis CT 07/07/17 14:27 IMPRESSION: There is an apparent lytic process involving the superior endplate of the T12 vertebra and inferior endplate of the T11 vertebra which was not present on the previous study. The appearance would suggest a discitis. MRI may be of value for further evaluation. Other findings as noted above Assessment & Plan - Diagnosis (1) End stage renal disease on dialysis Is this a current diagnosis for this admission?: Yes Plan: Seen on HD which is being supervised to ensure a safe and smooth procedure. VS are stable Undergoing HD without any issues. Plan to remove 2- 3 litres as tolerated . Orders were discussed with the treating RN. (2) C. difficile colitis Is this a current diagnosis for this admission?: Yes Plan: On po Vanc. As per hospitalist. (3) Hypokalemia Plan: Resolved.Monitor. (4) Anemia in chronic kidney disease Is this a current diagnosis for this admission?: Yes Plan: S/P transfusion. Adjust EPO. (5) Diabetes mellitus type 2 in obese Is this a current diagnosis for this admission?: Yes Plan: Adv tight control. (6) MSSA (methicillin susceptible Staphylococcus aureus) infection Is this a current diagnosis for this admission?: Yes Plan: On antibiotics as per hospitalist. (7) Sacral decubitus ulcer, stage II Is this a current diagnosis for this admission?: Yes Plan: as per hospitalist. (8) Hyponatremia Plan: Adv on fluids. Need to put fluid restriction to 1 l. See response to dialysis.Monitor.
[2017-07-21] MEDS: LOSARTAN POTASSIUM 50 MG TABLET PO SCH (13:43)
[2017-07-21] MEDS: CYPROHEPTADINE HCL 4 MG TABLET PO SCH (13:44)
[2017-07-21] MEDS: CINACALCET HCL 30 MG TABLET PO SCH (13:46)
[2017-07-21] MEDS: CALCIUM ACETATE 667 MG CAPSULE PO SCH (13:52)
--- NOTE | 2017-07-21 17:27 | PDOC PROGRESS REPORT ---
Subjective Progress Note for:: 07/21/17 Subjective:: C/O abdominal pain. Nurses report that she is only having mucus stool. No mitesh diarrhea. Reason For Visit: C DIFF COLITIS,SACRAL WOUND,CHRONIC KIDNEY DISEASE Physical Exam Vital Signs: Temp Pulse Resp BP Pulse Ox 97.5 F 94 16 123/56 L 100 07/21/17 12:00 07/21/17 12:00 07/21/17 12:00 07/21/17 12:00 07/21/17 12:00 Intake & Output 07/20/17 07/21/17 07/22/17 06:59 06:59 06:59 Intake Total 606 970 Output Total 3200 2700 Balance -2594 970 -2700 Weight 89.7 kg 90.6 kg Results Laboratory Results: 07/21/17 04:57 07/21/17 04:57 07/21/17 07/21/17 04:57 04:57 WBC 6.3 RBC 3.34 L Hgb 9.2 L Hct 28.9 L MCV 87 MCH 27.5 MCHC 31.8 L RDW 18.1 H Plt Count 207 Seg Neutrophils % 76.8 Lymphocytes % 12.2 L Monocytes % 8.2 Eosinophils % 2.0 Basophils % 0.8 Absolute Neutrophils 4.8 Absolute Lymphocytes 0.8 Absolute Monocytes 0.5 Absolute Eosinophils 0.1 Absolute Basophils 0.0 Sodium 133.4 L Potassium 4.0 Chloride 96 L Carbon Dioxide 30 Anion Gap 7 BUN 16 Creatinine 2.30 H Est GFR ( Amer) 25 L Est GFR (Non-Af Amer) 20 L Glucose 109 Calcium 8.6 07/07/17 07/07/17 17:38 23:12 Troponin I 0.043 0.049 Impressions: Chest X-Ray 07/07/17 00:00 IMPRESSION: LOW LUNG VOLUMES WITH FAINT BASILAR ATELECTASIS/ INFILTRATE AND SMALL PLEURAL EFFUSIONS. CARDIOMEGALY. Abdomen X-Ray 07/07/17 10:29 IMPRESSION: As above. Diminished aeration particularly in the left lower lobe. Abdomen/Pelvis CT 07/07/17 14:27 IMPRESSION: There is an apparent lytic process involving the superior endplate of the T12 vertebra and inferior endplate of the T11 vertebra which was not present on the previous study. The appearance would suggest a discitis. MRI may be of value for further evaluation. Other findings as noted above Assessment & Plan - Diagnosis (1) C. difficile colitis Is this a current diagnosis for this admission?: Yes Plan: She is on oral vancomycin. Her diarrhea has essentially resolved. 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 Is this a current diagnosis for this admission?: Yes Plan: Dialysis Wednesday, Wednesday, and Fridays. (3) End stage renal disease on dialysis Is this a current diagnosis for this admission?: Yes Plan: Dialysis Wednesday, Wednesday, and Fridays. (4) MSSA (methicillin susceptible Staphylococcus aureus) infection Is this a current diagnosis for this admission?: Yes Plan: Continue nafcillin for total of 14 days. Last dose will be July 21. (5) Discitis of lumbar region Is this a current diagnosis for this admission?: Yes Plan: Findings were incidental CT scan. She is on nafcillin. (6) Anemia in chronic kidney disease Is this a current diagnosis for this admission?: Yes (7) DNR (do not resuscitate) Is this a current diagnosis for this admission?: Yes Plan: Consult palliative care. (8) Diabetes mellitus type 2 in obese Is this a current diagnosis for this admission?: Yes Plan: Continue sliding scale. (9) Rheumatoid arthritis Qualifiers: Rheumatoid arthritis location: multiple sites Rheumatoid factor presence: unspecified presence Qualified Code(s): M06.9 - Rheumatoid arthritis, unspecified Is this a current diagnosis for this admission?: Yes (10) Sacral decubitus ulcer, stage II Is this a current diagnosis for this admission?: Yes Plan: Continue local wound care. - Time Time Spent with patient: 15-24 minutes Medications reviewed and adjusted accordingly: Yes Anticipated discharge: SNF - Inpatient Certification Based on my medical assessment, after consideration of the patient's comorbidities, presenting symptoms, or acuity I expect that the services needed warrant INPATIENT care.: Yes I certify that my determination is in accordance with my understanding of Medicare's requirements for reasonable and necessary INPATIENT services [42 CFR 412.3e].: Yes Medical Necessity: Failure to Improve With Outpatient Therapy, Significant Comorbidiites Make Outpatient Treatment Too Risky
[2017-07-21] MEDS: ATORVASTATIN CALCIUM 20 MG TABLET PO SCH (22:55)
[2017-07-22] MEDS: VANCOMYCIN HCL INJ 500 MG VIAL PO SCH ×3 (00:14→12:09)
[2017-07-22] MEDS: NAFCILLIN SODIUM 1 GM in DEXTROSE 5%-WATER 50 ML IV SCH ×4 (02:58→15:36)
[2017-07-22] MEDS: HEPARIN SOD (PORCINE) 5,000 UNIT/ML 1 ML SYRINGE SUBCUT SCH ×2 (05:38→15:36)
[2017-07-22] MEDS: OXYCODONE HCL IR 5 MG TABLET PO PRN (08:49)
--- NOTE | 2017-07-22 10:19 | PDOC DISCHARGE SUMMARY ---
General - Admit/Disc Date/PCP Admission Date/Primary Care Provider: 07/07/17 17:36 AUDELIA CORONEL MD Discharge Date: 07/22/17 - Discharge Diagnosis (1) C. difficile colitis Is this a current diagnosis for this admission?: Yes Summary: Resolved. Treated with a 2 week course of oral vancomycin. 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 Is this a current diagnosis for this admission?: Yes (3) End stage renal disease on dialysis Is this a current diagnosis for this admission?: Yes (4) MSSA (methicillin susceptible Staphylococcus aureus) infection Is this a current diagnosis for this admission?: Yes (5) Discitis of lumbar region Is this a current diagnosis for this admission?: Yes (6) Anemia in chronic kidney disease Is this a current diagnosis for this admission?: Yes (7) DNR (do not resuscitate) Is this a current diagnosis for this admission?: Yes (8) Diabetes mellitus type 2 in obese Is this a current diagnosis for this admission?: Yes (9) Rheumatoid arthritis Is this a current diagnosis for this admission?: Yes (10) Sacral decubitus ulcer, stage II Is this a current diagnosis for this admission?: Yes - Additional Information Resuscitation Status: Full Code Discharge Diet: Other (Comments) - Renal Discharge Activity: Activity As Tolerated Prescriptions: Oxycodone HCl [Oxy-Ir 5 mg Tablet] 5 mg PO Q6HP PRN #30 tablet PRN Reason: Home Medications: Amlodipine Besylate [Norvasc 5 mg Tablet] 5 mg PO DAILY 07/07/17 Atorvastatin Calcium [Lipitor 20 mg Tablet] 20 mg PO QHS 07/07/17 Calcium Acetate 667 mg PO DAILY 07/07/17 Cinacalcet HCl [Sensipar 30 mg Tablet] 30 mg PO DAILY 07/07/17 Cyproheptadine HCl [Periactin 4 mg Tablet] 4 mg PO DAILY 07/07/17 Linagliptin [Tradjenta] 5 mg PO DAILY 07/07/17 Losartan Potassium [Cozaar 100 mg Tablet] 100 mg PO DAILY 07/07/17 Ranitidine HCl [Zantac 150 mg Tablet] 150 mg PO Q12 07/07/17 Acetaminophen [Tylenol 325 mg Tablet] 650 mg PO Q4HP PRN tablet 07/22/17 Ondansetron [Zofran Odt 4 mg Tablet] 4 mg PO Q6HP PRN tab.rapdis 07/22/17 Oxycodone HCl [Oxy-Ir 5 mg Tablet] 5 mg PO Q6HP PRN #30 tablet 07/22/17 History of Present Illness History of Present Illness: KEVIN BUSTAMANTE is a 81 year old female with history of CKD on iHD, HTN, HLD, DM who presents for evaluation of worsening abdominal pain and diarrhea. Majority of history is obtained by patient's daughter who is at bedside. States that she has had abdominal pain for the last 2 months. Was recently hospitalized in March 2017 with similar complaint and no clear etiology of abdominal pain. Over the past two weeks patient's abdominal pain is more severe. She has associated nausea and vomiting. PO intake is has been poor with associated 10-15lb weight loss. Also has had increased diarrhea. Over last 2-3 days, stools are looser, more foul smelling, and occurring 3-4 times per day. Has low grade fevers and chills. Patient also has chronic bed sores, which have increased in size and number. Has had purulent drainage. No history of debridement. Has daily dressing changes by daughter. Also, patient is a dialysis patient MWF. Last dialysis was on Wednesday however did not get dialyzed today. In ED, noted to have very tender abdomen. WBC 16.8 with left shift. Stool positive for C diff. CT AP without contrast obtained and shows possible LLL infiltrate and T12 discitis. Patient has no history of C diff and has not recently been on antibiotics. Hospital Course Hospital Course: She also was noted to have pneumonia and was started on renally dosed vancomycin and Zosyn. Her blood cultures have grown out methicillin sensitive staph aureus. She was started on nafcillin 1 g every 4 hours on July 12. She completed a 14 day course of nafcillin. Ultimately, Zosyn and IV vancomycin were stopped. Noted on CT A/P at admission, she had evidence of discitis at T12. The plan was to obtain an MRI. However, it was not obtained at the time. Given clinical improvement, additional testing was not pursued. The Attending at the the time had a long discussion with patient's daughter who was her primary personal care worker. Given multiple co-morbidities including CKD, cardiac problems, and current infections, the patient's mortality risk was high. Palliative care was consulted. Family was in agreement that patient should not stop dialysis and so hospice would not be an option. The option of SNF for rehab would be helpful for both patient and daughter because she would have access for more caregivers instead of her daughter having to provide care alone for 20 hours each day. In addition, they discussed advance directives while all three daughters were present. Patient has said that she does not want resuscitation measures and would not want to be kept alive on ventilator. They discussed the reality and futilty of CPR, intubation and penitentiary acute care. They decided that they should honor the patients wishes. During her hospital stay, she received dialysis as usual. Overall her hospitalization was uneventful. Physical Exam Vital Signs: Temp Pulse Resp BP Pulse Ox 98.2 F 112 H 18 128/86 H 92 07/22/17 07:33 07/22/17 07:33 07/22/17 07:33 07/22/17 07:33 07/22/17 07:33 Intake & Output 07/21/17 07/22/17 07/23/17 06:59 06:59 06:59 Intake Total 970 730 Output Total 2700 Balance 970 -1970 Weight 90.6 kg 86.7 kg General appearance: PRESENT: no acute distress Head exam: PRESENT: atraumatic, normocephalic Eye exam: PRESENT: EOMI, PERRLA Respiratory exam: PRESENT: clear to auscultation rose marie. ABSENT: rales, rhonchi, wheezes Cardiovascular exam: PRESENT: RRR. ABSENT: diastolic murmur, rubs, systolic murmur GI/Abdominal exam: PRESENT: normal bowel sounds, soft. ABSENT: distended, guarding, mass, organolmegaly, rebound, tenderness Neurological exam: PRESENT: alert, awake, oriented to person, oriented to place , CN II-XII grossly intact Psychiatric exam: PRESENT: appropriate affect, normal mood. ABSENT: homicidal ideation, suicidal ideation Skin exam: PRESENT: other - stage 2-3 sacral pressure sore. Results Laboratory Results: 07/21/17 04:57 07/21/17 04:57 07/07/17 07/07/17 17:38 23:12 Troponin I 0.043 0.049 Impressions: Chest X-Ray 07/07/17 00:00 IMPRESSION: LOW LUNG VOLUMES WITH FAINT BASILAR ATELECTASIS/ INFILTRATE AND SMALL PLEURAL EFFUSIONS. CARDIOMEGALY. Abdomen X-Ray 07/07/17 10:29 IMPRESSION: As above. Diminished aeration particularly in the left lower lobe. Abdomen/Pelvis CT 07/07/17 14:27 IMPRESSION: There is an apparent lytic process involving the superior endplate of the T12 vertebra and inferior endplate of the T11 vertebra which was not present on the previous study. The appearance would suggest a discitis. MRI may be of value for further evaluation. Other findings as noted above Qualifiers PATEINT BEING DISCHARGED WITH ANY OF THE FOLLOWING DIAGNOSIS?: No Plan Time Spent: Greater than 30 Minutes - 35 minutes
[2017-07-22 11:31] LABS: ANION GAP 7 (5-19); BLOOD UREA NITROGEN 10 mg/dL (7-20); CALCIUM 9.4 mg/dL (8.4-10.2); CARBON DIOXIDE 32 mmol/L (22-30); CHLORIDE 97 mmol/L (98-107); GLUCOSE 128 mg/dL (75-110); POTASSIUM 4.1 mmol/L (3.6-5.0); SODIUM 136.4 mmol/L (137-145)
[2017-07-22] MEDS: CINACALCET HCL 30 MG TABLET PO SCH (13:41)
[2017-07-22] MEDS: CYPROHEPTADINE HCL 4 MG TABLET PO SCH (13:41)
[2017-07-22] MEDS: LOSARTAN POTASSIUM 50 MG TABLET PO SCH (13:42)
[2017-07-22] MEDS: CALCIUM ACETATE 667 MG CAPSULE PO SCH (13:42)
[2017-07-22 21:45] VITALS: BP 117/69
== END 2017-07-22 14:45 | DRG 371 ==
LOC: ER 09:56 → EH 17:36 → 4W 19:26
PROVIDERS: ADMIT Emergency Medicine; ATTEND Emergency Medicine
PROC: 5A1D70Z Performance of Urinary Filtration, Intermittent, Less than 6 Hours Per Day (ICD-10-PCS; principal; 2017-07-09)
PROC: 5A1D70Z Performance of Urinary Filtration, Intermittent, Less than 6 Hours Per Day (ICD-10-PCS; 2017-07-12)
PROC: 30233N1 Transfusion of Nonautologous Red Blood Cells into Peripheral Vein, Percutaneous Approach (ICD-10-PCS; 2017-07-12)
PROC: 5A1D70Z Performance of Urinary Filtration, Intermittent, Less than 6 Hours Per Day (ICD-10-PCS; 2017-07-14)
PROC: 5A1D70Z Performance of Urinary Filtration, Intermittent, Less than 6 Hours Per Day (ICD-10-PCS; 2017-07-16)
PROC: 5A1D70Z Performance of Urinary Filtration, Intermittent, Less than 6 Hours Per Day (ICD-10-PCS; 2017-07-19)
PROC: 5A1D70Z Performance of Urinary Filtration, Intermittent, Less than 6 Hours Per Day (ICD-10-PCS; 2017-07-21)
DX: A04.72 Enterocolitis due to Clostridium difficile, not specified as recurrent (principal); N18.6 End stage renal disease; J18.9 Pneumonia, unspecified organism; R78.81 Bacteremia; I13.2 Hypertensive heart and chronic kidney disease with heart failure and with stage 5 chronic kidney disease, or end stage renal disease; I50.42 Chronic combined systolic (congestive) and diastolic (congestive) heart failure; Z66 Do not resuscitate; D63.1 Anemia in chronic kidney disease; A49.01 Methicillin susceptible Staphylococcus aureus infection, unspecified site; L89.152 Pressure ulcer of sacral region, stage 2; E87.6 Hypokalemia; E78.00 Pure hypercholesterolemia, unspecified; E11.22 Type 2 diabetes mellitus with diabetic chronic kidney disease; M46.46 Discitis, unspecified, lumbar region; R10.84 Generalized abdominal pain; M06.9 Rheumatoid arthritis, unspecified; Z99.2 Dependence on renal dialysis
CPT/HCPCS: 36415; 36430; 71045; 74019; 74176; 80048; 80053; 82272; 82550; 82553; 82728; 83540; 83550; 83735; 83930; 84100; 84132; 84484; 85025; 85027; 86850; 86900; 86901; 86920; 87040; 87045; 87077; 87186; 87205; 87493; 89055; 93005; 93010; 99285; J0744; J1644; J2543; J3370; J3480; J3490; J7060; P9016; Q4081